=== PATIENT | male | born 1965 | race Caucasian/White ===

== ENCOUNTER 2023-07-17 14:21 | Inpatient (IN) | payer OTHER, SELFPAY ==
--- NOTE | ~2023-07-17 | CT_ITS ---
EXAMINATION: CT CHEST WITH CONTRAST CLINICAL INFORMATION: Pneumonia history of epidural abscess. COMPARISON: Previous chest x-ray from earlier the same day and chest CT April 2022 TECHNIQUE: Multidetector volumetric CT imaging of the chest was obtained after the administration of 85 mL of Omnipaque 350 intravenous contrast without immediate adverse reactions. Axial MIP volume rendering provided. Sagittal and coronal reformatted images were obtained. This CT examination was performed using dose optimization techniques as appropriate, variously including the following: *Automated exposure control *Adjustment of mA and/or kV according to patient size (this includes techniques or standardized protocols for targeted exams where dose is matched to indication/reason for exam; i.e. extremities or head) *Use of iterative reconstruction technique DLP: 241 mGy-cm FINDINGS: LUNGS: 6 mm lingular nodule unchanged axial image 304 series 5. New 1.5 cm cavitary right lower lobe nodule axial image 312 series 5. Mild scarring or subsegmental atelectasis right upper lobe lingula and left lower lobe. MEDIASTINUM: Small mediastinal and bilateral hilar nodes. Upper normal heart size. No pericardial effusion. Ossific aorta. No coronary artery calcification. PLEURA: There is no pleural effusion. No pleural mass or thickening. AXILLA: No lymphadenopathy. UPPER ABDOMEN: Unremarkable OSSEOUS STRUCTURES: Ankylosis of the T9 T10 disc space and ankylosis of the C7-T1 disc space. Degenerative changes of the spine. CT/CT chest w IV con IMPRESSION: New 1.5 cm cavitary right lower lobe nodule. Infectious, inflammatory and neoplastic processes should considered. Stable 6 mm lingular pulmonary nodule chest CT April 2022. Continued follow-up as per lung cancer screening . Fleischner guidelines were followed.
--- NOTE | ~2023-07-17 | CT_ITS ---
EXAMINATION: CT ABDOMEN AND PELVIS WITH CONTRAST CLINICAL INFORMATION: Intravenous drug use; abdominal pain; question intra-abdominal abscess. COMPARISON: None available. TECHNIQUE: Multidetector volumetric images were obtained from the superior aspect of the liver through the pubic symphysis following administration 85 mL of Omnipaque 350 intravenous contrast. Sagittal and coronal reformatted images were obtained on the technologist's workstation. Oral contrast: No This CT examination was performed using dose optimization techniques as appropriate, variously including the following: *Automated exposure control *Adjustment of mA and/or kV according to patient size (this includes techniques or standardized protocols for targeted exams where dose is matched to indication/reason for exam; i.e. extremities or head) *Use of iterative reconstruction technique DLP: 596 mGy-cm FINDINGS: LUNG BASES: Please see accompanying CT chest report. LIVER, GALLBLADDER, AND BILIARY TREE: The liver is normal in size, shape, and attenuation. No focal hepatic lesion or biliary ductal dilatation is present. The gallbladder is unremarkable with no evidence of radiopaque gallstones, gallbladder wall thickening, or obvious pericholecystic inflammatory changes. PANCREAS: Unremarkable. SPLEEN: Unremarkable. ADRENAL GLANDS: Unremarkable. KIDNEYS AND URETERS: The kidneys are normal in size, shape, and attenuation. No hydronephrosis, hydroureter, or calculi seen. No perinephric stranding. Within the mid right kidney (4:317), an 8 mm mildly complex (Bosniak 2) cyst is seen, with fine septation. At the lower pole of the left kidney (4: 411), a 9 mm mildly complex (Bosniak 2) cyst is seen, with fine septation. These are likely benign and require no imaging follow-up. These are too small for full characterization with CT. BLADDER: Unremarkable. GASTROINTESTINAL TRACT: There is a moderate stool burden, suggesting possible constipation. No obstruction, free intraperitoneal air or abscess is seen. There is no focal bowel wall thickening. There is no significant diverticulosis or diverticulitis. The vermiform appendix is unremarkable. ABDOMINAL WALL: There is a diastases rectus. There is a small fat-containing umbilical hernia. A small fat-containing left inguinal hernia is seen. LYMPH NODES: Normal. VASCULAR: Unremarkable. PELVIC VISCERA: Unremarkable. OSSEOUS STRUCTURES: There is multi-level marked thoracolumbar degenerative disc disease and spondylosis. No acute or aggressive osseous abnormality is seen. CT/CT abdomen pelvis w IV con IMPRESSION: 1. Findings suggest possible constipation. No bowel obstruction, free intraperitoneal air or abscess is seen. There is no appendicitis or diverticulitis. 2. No intra-abdominal mass, abscess, free fluid or lymphadenopathy is seen. 3. No urinary calculus or obstruction is seen. 4. There are small fat-containing umbilical and left inguinal hernia defects. 5. There are multi-level degenerative changes of the spine. Fleischner guidelines were followed.
--- NOTE | ~2023-07-17 | XR_ITS ---
EXAMINATION: XR CHEST CLINICAL INFORMATION: Right posterior pain COMPARISON: None available. TECHNIQUE: Frontal portable view of the chest was obtained. 2040 hours FINDINGS: Lung volume low. This causes prominence of bronchovascular markings. There is no overt pulmonary edema. No focal consolidation. Cardiac mediastinal contours are normal. Heart size is normal XR/XR chest 1V IMPRESSION: Low lung volume. No acute abnormality of chest.
--- NOTE | 2023-07-17 14:28 | ED_ITS ---
HPI - General Adult General Chief complaint: Back Pain/Injury Stated complaint: Osteomyelitis Time Seen by Provider: 07/17/23 20:02 Source: patient Mode of arrival: ambulatory Limitations: no limitations History of Present Illness HPI narrative: Patient IVDA user with history of epidural abscess few hours ago still using IVDA last use was 5 days ago complaining of pain in the right lower chest posteriorly which increased on palpation and deep breath does have chronic cough with COPD, smoker denies any midline back pain. Labs done in the ER showed WBC count of 10.3 hemoglobin 13.4 patient does have chronic cough with mucopurulent phlegm denies any fever or chills Related Data Allergies Allergy/AdvReac Type Severity Reaction Status Date / Time amoxicillin Allergy Diarrhea Verified 07/17/23 14:28 Review of Systems 2 Review of Systems: Yes all other systems are reviewed and are negative [facility] Past Medical History Medical History (Updated 07/18/23 @ 02:15 by Martha Boyd) Tobacco abuse Epidural abscess IV drug user Essential hypertension Social History Social History Unable to assess alcohol history related to: Unknown Patient Tobacco Use Status: Current everyday Tobacco user Smoked in Last 30 Days: Yes Use of substances other than those prescribed or required for medical reasons: Yes Advance Directives: No Advance Directives Information Provided: No Nutrition Risks: No Nutritional Risk Physical Exam ED Vital Signs: Vital Signs - 24 hr 07/17/23 14:29 07/17/23 20:35 07/17/23 22:49 Temperature 98 F 97.9 F 98.1 F Pulse Rate 67 68 81 Respiratory Rate 18 20 18 Blood Pressure 113/70 118/75 101/58 L Pulse Oximetry 98 97 93 Oxygen Delivery Method Room Air Room Air Room Air BMI result Body Mass Index 30.8 Appearance: Alert. Oriented X3. No acute distress. Eyes: No pallor or icterus ENT: Pharynx normal. Oral Mucosa moist Neck: Normal inspection. Neck supple. CVS: Normal heart rate and rhythm. Pulses normal. Respiratory: No respiratory distress. Equal air entry bilateral, bilateral wheezing, tender to touch right posterior lower ribs Abdomen: Soft and nontender. Bowel sounds are present, no mass palpable, no CVA tenderness Skin: Skin warm and dry. Normal skin color. Normal skin turgor. Extremities: No lower extremity edema. No calf tenderness back: No midline tenderness no percussion tenderness Neuro: Oriented X 3. No motor deficit. No sensory deficit.No cerebellar signs , cranial nerves II-XII intact Course Course Course Narrative: RME:?57 yo male, hx of IVDU, osteo, and epidural abscess here for eval of I think I have osteomyelitis . endorses right lower/mid back pain which feels like his previous osteo. denies fever/chilld. [facility]. States that he was outside smoking a cigarette when security asked him to leave. Full HPI, ROS and PE to be performed by the primary ED provider. Medications Administered Generic Name Dose Route Start Last Admin Trade Name Freq PRN Reason Stop Dose Admin Hydromorphone HCl 1 mg 07/17/23 23:30 07/18/23 02:19 Hydromorphone Hcl 1 Mg/Ml Syringe IVPUSH 1 mg Q4H PRN Administration Pain, Severe (Pain Scale 7-10) Protocol Sodium Chloride 1,000 mls @ 100 mls/hr 07/17/23 23:30 07/18/23 01:22 Ns IVCONT 100 mls/hr .Q10H SOCO Administration Sodium Chloride 3 ml 07/18/23 00:00 07/18/23 01:22 0.9 % Sodium Chloride Flush 3 Ml Syringe IVFLUSH 3 ml QSHIFT SOCO Administration Discontinued Medications Generic Name Dose Route Start Last Admin Trade Name Freq PRN Reason Stop Dose Admin Albuterol Sulfate 2.5 mg/ 0 mg 07/17/23 21:12 07/17/23 21:33 Albuterol/Ipratropium 3 ml INHALE 07/17/23 21:13 2.5 dose ONCE ONE Administration Ceftriaxone Sodium 1 gm/ 50 mls @ 100 mls/hr 07/17/23 21:11 07/17/23 22:07 Sodium Chloride IV 07/17/23 21:40 Infused ONCE ONE Infusion Vancomycin HCl 2,000 mg in 500 mls @ 250 mls/hr 07/17/23 22:24 07/18/23 02:32 Vancomycin/Ns IV 07/18/23 00:23 Infused ONCE ONE Infusion Piperacillin Sod/Tazobactam 50 mls @ 100 mls/hr 07/17/23 22:24 07/17/23 23:17 Sod 3.375 gm/ Sodium Chloride IV 07/17/23 22:53 Infused ONCE ONE Infusion Iohexol 100 ml 07/17/23 21:29 07/17/23 21:29 Iohexol 350 Mg/Ml 100 Ml Infus..Btl IV 07/17/23 21:30 65 ml ONCE ONE Administration Ketorolac Tromethamine 30 mg 07/17/23 21:11 07/17/23 21:37 Ketorolac Tromethamine 30 Mg/Ml Vial IVPUSH 07/17/23 21:12 30 mg ONCE ONE Administration Morphine Sulfate 4 mg 07/17/23 23:11 07/17/23 23:19 Morphine Sulfate 4 Mg/Ml Cartridge IVPUSH 07/17/23 23:12 4 mg ONCE ONE Administration Protocol Ondansetron HCl 4 mg 07/17/23 23:11 07/17/23 23:19 Ondansetron Hcl 4 Mg/2 Ml Vial IVPUSH 07/17/23 23:12 4 mg ONCE ONE Administration Medical Decision Making Medical Decision Making [facility] Narrative: Patient with right lower lung pain clinically pleuritic pain CT chest showed cavitary lesion normal WBC count with lung nodules possible pneumonia/lung mass/neoplasm. Patient does not have any midline spinal tenderness will admit patient for IV antibiotics Differential Diagnosis Differential Diagnoses: The differential diagnosis associated with the presentation includes Lung neoplasm/pneumonia/pleurisy/rib fracture Admission/Observation Consideration of admission/observation: Escalation of care including admission/observation considered Consult Healthcare Provider Management of the patient was discussed with: Hospitalist Lab Data [facility] Lab Attestation statement: I reviewed the patient's lab results. 07/17/23 15:23 07/17/23 15:23 Labs: Lab Results 07/17/23 07/17/23 Range/Units 15:23 20:31 WBC 10.3 (4.8-10.8) X10*3/uL RBC 4.91 (4.60-5.80) X10*6/uL Hgb 13.4 L (14.0-18.0) g/dl Hct 39.7 L (42.0-52.0) % MCV 80.9 (80.0-98.0) fL MCH 27.3 (27.0-33.0) pg MCHC 33.8 (31.0-36.0) g/dl RDW 13.2 (11.0-16.0) % Plt Count 152 L (160-400) X10*3/uL MPV 10.0 (9.4-12.4) fL Immature Gran % (Auto) 0.4 (0.0-0.4) % Neut % (Auto) 74.6 H (45-73) % Lymph % (Auto) 11.6 L (20-40) % [place] % (Auto) 12.2 H (2-11) % Eos % (Auto) 0.9 (0-4) % Baso % (Auto) 0.3 (0-2) % Lymph # (Auto) 1.2 (1.2-4.9) X10*3/uL [place] # (Auto) 1.3 H (0.1-1.2) X10*3/uL Eos # (Auto) 0.1 (0.0-0.4) X10*3/uL Baso # (Auto) 0.0 (0.0-0.2) X10*3/uL Abs Immat Gran (auto) 0.04 H (0.00-0.03) X10*3/uL Absolute Neuts (auto) 7.7 (2.0-8.3) x10*3/uL Absolute Nucleated RBC 0.000 (0.0-0.012) X10*3/uL Nucleated RBC % (auto) 0.0 (0.0-0.2) /100WBC ESR 40 H (0-15) MM/HR Sodium 139 (135-145) mmol/L Potassium 4.0 (3.3-5.1) mmol/L Chloride 104 (96-108) mmol/L Carbon Dioxide 28 (22-29) mmol/L Anion Gap 11 L (12-20) BUN 24 H (9-16) mg/dL Creatinine 1.17 (0.5-1.4) mg/dL Estim Creat Clear Calc 68.5 Estimated GFR > 60 Random Glucose 109 (60-115) mg/dL Lactic Acid 1.5 (0.5-2.0) mmol/L Calcium 9.5 (8.4-10.2) mg/dL Magnesium 2.0 (1.6-2.6) mg/dL Total Bilirubin 0.3 (0.0-1.0) mg/dL AST 15 (5-37) U/L ALT 10 (0-40) U/L Alkaline Phosphatase 81 (39-117) U/L Total Creatine Kinase 15 L (38-174) U/L C-Reactive Protein 17.46 H (< or = 0.50) mg/dL Total Protein 7.0 (6.5-8.0) g/dL Albumin 3.4 L (3.5-5.0) g/dL Independent Interpretation I performed an independent interpretation of an: Plain X-Ray and CT Scan Radiology Impression Discussion of test interpretation with radiology: I have reviewed the radiologist's reading. Radiologist Impression: [address] [address] [address] Scan Report Signed Patient: Tayo Fisher MR#: [id number] : 1965 Acct:[id number] Age/Sex: 57 / M ADM Date: 07/17/23 Loc: .ED Attending Dr: Ordering Physician: Albaro Collins MD Date of Service: 07/17/23 Procedure(s): CT chest w IV con Accession Number(s): [id number] cc: EMMANUEL LYMAN DO; Albaro Collins MD~ EXAMINATION: CT CHEST WITH CONTRAST CLINICAL INFORMATION: Pneumonia history of epidural abscess. COMPARISON: Previous chest x-ray from earlier the same day and chest CT April 2022 TECHNIQUE: Multidetector volumetric CT imaging of the chest was obtained after the administration of 85 mL of Omnipaque 350 intravenous contrast without immediate adverse reactions. Axial MIP volume rendering provided. Sagittal and coronal reformatted images were obtained. This CT examination was performed using dose optimization techniques as appropriate, variously including the following: *Automated exposure control *Adjustment of mA and/or kV according to patient size (this includes techniques or standardized protocols for targeted exams where dose is matched to indication/reason for exam; i.e. extremities or head) *Use of iterative reconstruction technique DLP: 241 mGy-cm FINDINGS: LUNGS: 6 mm lingular nodule unchanged axial image 304 series 5. New 1.5 cm cavitary right lower lobe nodule axial image 312 series 5. Mild scarring or subsegmental atelectasis right upper lobe lingula and left lower lobe. MEDIASTINUM: Small mediastinal and bilateral hilar nodes. Upper normal heart size. No pericardial effusion. Ossific aorta. No coronary artery calcification. PLEURA: There is no pleural effusion. No pleural mass or thickening. AXILLA: No lymphadenopathy. UPPER ABDOMEN: Unremarkable OSSEOUS STRUCTURES: Ankylosis of the T9 T10 disc space and ankylosis of the C7-T1 disc space. Degenerative changes of the spine. CT/CT chest w IV con IMPRESSION: New 1.5 cm cavitary right lower lobe nodule. Infectious, inflammatory and neoplastic processes should considered. Stable 6 mm lingular pulmonary nodule chest CT April 2022. Continued follow-up as per lung cancer screening . Fleischner guidelines were followed. Discharge Plan Discharge Clinical Impression: Cavitary lesion of lung Patient Disposition: Admitted As Inpatient Interventions: Admission Worksheet (ED) Last Done: 07/18/23 01:10 Discharge Date/Time: 07/18/23 02:15
[2023-07-17 14:29] VITALS: BP 113/70; PULSE 67; RESP 18; TEMP 36.6; O2SAT 98; BMI 30.8
[2023-07-17 15:30] LABS: MANUAL DIFF FLAG NO
[2023-07-17 15:34] LABS: Basophils Percent Auto 0.3 % (0-2); Eosinophils Absolute Auto 0.1 X10*3/uL (0.0-0.4); Eosinophils Percent Auto 0.9 % (0-4); Hematocrit 39.7 % (42.0-52.0); Hemoglobin 13.4 g/dl (14.0-18.0); Imm Gran Abs Auto 0.04 X10*3/uL (0.00-0.03); Imm Gran Pct Auto 0.4 % (0.0-0.4); Lymphocytes Absolute Auto 1.2 X10*3/uL (1.2-4.9); Lymphocytes Percent Auto 11.6 % (20-40); Mean Corpuscular HGB Conc 33.8 g/dl (31.0-36.0); Mean Corpuscular Hemoglobin 27.3 pg (27.0-33.0); Mean Corpuscular Volume 80.9 fL (80.0-98.0); Monocytes Absolute Auto 1.3 X10*3/uL (0.1-1.2); Monocytes Percent Auto 12.2 % (2-11); Neutrophils Absolute Auto 7.7 x10*3/uL (2.0-8.3); Neutrophils Percent Auto 74.6 % (45-73); Platelet Count 152 X10*3/uL (160-400); Red Blood Count 4.91 X10*6/uL (4.60-5.80); Red Cell Distribution Width 13.2 % (11.0-16.0); White Blood Count 10.3 X10*3/uL (4.8-10.8)
[2023-07-17 15:46] LABS: Alanine Aminotransferase 10 U/L (0-40); Albumin Level 3.4 g/dL (3.5-5.0); Alkaline Phosphatase 81 U/L (39-117); Anion Gap 11 (12-20); Aspartate Amino Transferase 15 U/L (5-37); Bilirubin Total 0.3 mg/dL (0.0-1.0); Blood Urea Nitrogen 24 mg/dL (9-16); C Reactive Protein 17.46 mg/dL (< or = 0.50); Calcium 9.5 mg/dL (8.4-10.2); Carbon Dioxide 28 mmol/L (22-29); Chloride 104 mmol/L (96-108); Creatinine Clr Calc Pharmacy 68.5; Estimated Glomerular Filt Rate > 60; Glucose Random 109 mg/dL (60-115); Sodium 139 mmol/L (135-145)
[2023-07-17 16:10] LABS: Erythrocyte Sedimentation Rate 40 MM/HR (0-15)
[2023-07-17 20:35] VITALS: BP 118/75; PULSE 68; RESP 20; TEMP 36.6; O2SAT 97
[2023-07-17 20:53] LABS: Lactic Acid 1.5 mmol/L (0.5-2.0)
[2023-07-17] MEDS: iohexoL 350 MG/ML 100 ML INFUS..BTL IV (21:29)
[2023-07-17] MEDS: Albuterol Sulfate 2.5 MG, Albuterol/Iprat 2.5/0.5MG 3 ML 3 ML INHALE (21:33)
[2023-07-17] MEDS: Ketorolac Tromethamine 30 MG/ML VIAL IVPUSH (21:37)
[2023-07-17] MEDS: cefTRIAXone sodium 1 GM in 0.9 % Sodium Chloride 50 ML IV (21:37)
[2023-07-17] MEDS: Piperacillin Sodium/Tazobactam 3.375 GM in 0.9 % Sodium Chloride 50 ML IV (22:47)
[2023-07-17 22:49] VITALS: BP 101/58; PULSE 81; RESP 18; TEMP 36.7; O2SAT 93
[2023-07-17] MEDS: Morphine Sulfate 4 MG/ML CARTRIDGE IVPUSH (23:19)
[2023-07-17] MEDS: ondansetron HCL 4 MG/2 ML VIAL IVPUSH (23:19)
[2023-07-17] MEDS: vancomycin/NS 2,000 MG/500 ML PLAST..BAG 250 MG IV (23:28)
--- NOTE | 2023-07-18 01:09 | PM.IMHP ---
History of Present Illness Date of Service: 07/17/23 Attending physician on admission: Uriel Moore Chief Complaint: Left flank pain Tayo Fisher is a very pleasant 57 years old man with past medical history significant for hypertension, epidural abscess and IV drug use presents to the emergency department complaining of severe right flank pain over the last few days that increases with movement and deep inspiration. He also reported some occasional cough. He did not report any fever or chills. He denies headache, sore throat, chest pain, nausea, vomiting, abdominal pain or diarrhea. He did not report any acute urinary symptoms. He is a tobacco smoker -1 pack per day. Last use of heroin 5 days ago. He denies alcohol abuse. In the ED, he was found to have stable vital signs. There is no leukocytosis. CRP is significantly elevated 17.46. LFTs are normal. Renal function is normal and there are no significant electrolyte imbalances. He underwent chest CT scan with IV contrast that show a new 1.5 cm cavity RLL nodule (infectious vs inflammatory versus neoplastic process should be considered). It also showed a stable 6 mm lingular pulmonary nodule. ED tx: Zosyn 3.375 mg IV, morphine 4 mg IV, vancomycin 2 g IV and Zofran 4 mg IV. Review of Systems Review of Systems: All 12 systems were reviewed and normal except as noted in HPI. [facility] Medical History (Updated 07/18/23 @ 02:15 by Martha Boyd) Tobacco abuse Epidural abscess IV drug user Essential hypertension Social History Household Members: None Housing: Other Unable to assess alcohol history related to: Unknown Patient Tobacco Use Status: Never used Tobacco Smoked in Last 30 Days: No e-Cigarette/Vaping Use: Never Used Patient Interested in Nicotine Replacement: No Patient Given Instructions on How to Stop Smoking: No Use of substances other than those prescribed or required for medical reasons: Yes Substance Use Type: Heroin Substance Use Frequency: Occasionally Last Used Substance: Days (ago) Last Used Substance Other:: three days prior to admission Currently Displaying Signs/Symptoms of Drug Intoxication Withdrawal: No Any prior treatment program specific to substance use: No Advance Directives: No Advance Directives Information Provided: No Do you have thoughts of harming others: None Do you have a plan to hurt others: No Plan Recently lost weight without trying: No Eating poorly because of decreased appetite: No Nutrition Risks: No Nutritional Risk Poor oral hygiene: No Meds Allergies Allergy/AdvReac Type Severity Reaction Status Date / Time amoxicillin Allergy Diarrhea Verified 07/17/23 14:28 Active Medications: Current Medications Acetaminophen (Acetaminophen 325 Mg Tablet) 975 mg PO Q8H SOCO Aspirin (Aspirin 81 Mg Tab.Chew) 81 mg PO DAILY [facility] Heparin Sodium (Porcine) (Heparin Sodium,Porcine 5,000 Unit/Ml Vial) 5,000 unit SUBCUT Q8H SOCO Hydromorphone HCl (Hydromorphone Hcl 1 Mg/Ml Syringe) 1 mg IVPUSH Q4H PRN; Protocol PRN Reason: Pain, Severe (Pain Scale 7-10) Sodium Chloride (Ns) 1,000 mls @ 100 mls/hr IVCONT .Q10H SOCO Piperacillin Sod/Tazobactam (Sod 3.375 gm/ Sodium Chloride) 50 mls @ 100 mls/hr IV Q6H SOCO Lisinopril (Lisinopril 20 Mg Tablet) 20 mg PO DAILY SOCO; Protocol Methadone HCl (Methadone Hcl 20 Mg/2 Ml Oral.Conc) 45 mg PO DAILY [facility] Multivitamins/Vitamin C (Multivitamin Tablet) 1 tab PO DAILY [facility] Sodium Chloride (0.9 % Sodium Chloride Flush 3 Ml Syringe) 3 ml IVFLUSH QSHIFT [facility] Trazodone HCl (Trazodone Hcl 100 Mg Tablet) 100 mg PO BEDTIME [facility] Physical Exam Vital Signs and Narrative: Vital Signs: Last Vital Signs Temp 98.1 F 07/17/23 22:49 Pulse 81 07/17/23 22:49 Resp 18 07/17/23 22:49 BP 101/58 L 07/17/23 22:49 Pulse Ox 93 07/17/23 22:49 O2 Del Method Room Air 07/17/23 22:49 BMI result Body Mass Index 30.8 Constitutional - Awake and Alert. Looks very uncomfortable due to pain. Afebrile. Cooperative. Pleasant. HEENT - Pupils equally round. No scleral icterus. Heart - S1S2, RRR, No edema Lungs - Normal lung expansion, Normal respiratory effort, No respiratory distress. No tachypnea. Right lower base: Crackles. Left lung clear. Gastrointestinal - NT / ND; +BS; No rebound or guarding Extremities - no calf tenderness bilaterally, no swelling Musculoskeletal - Normal inspection, normal ROM Skin - Warm/Dry Neurological - Alert & oriented x3. No focal weakness. Normal speech. Normal behavior. Psychological - Appropriate affect Results Labs 07/18/23 06:03 07/18/23 06:03 Labs: Laboratory Results - last 24 hr 07/17/23 07/17/23 15:23 20:31 MCV 80.9 MCH 27.3 MCHC 33.8 RDW 13.2 Plt Count 152 L MPV 10.0 Immature Gran % (Auto) 0.4 Neut % (Auto) 74.6 H Lymph % (Auto) 11.6 L [place] % (Auto) 12.2 H Eos % (Auto) 0.9 Baso % (Auto) 0.3 Lymph # (Auto) 1.2 [place] # (Auto) 1.3 H Eos # (Auto) 0.1 Baso # (Auto) 0.0 Abs Immat Gran (auto) 0.04 H Absolute Neuts (auto) 7.7 Absolute Nucleated RBC 0.000 Nucleated RBC % (auto) 0.0 ESR 40 H Anion Gap 11 L Estim Creat Clear Calc 68.5 Estimated GFR > 60 Random Glucose 109 Lactic Acid 1.5 Calcium 9.5 Magnesium 2.0 Total Bilirubin 0.3 AST 15 ALT 10 Alkaline Phosphatase 81 Total Creatine Kinase 15 L C-Reactive Protein 17.46 H Total Protein 7.0 Albumin 3.4 L Imaging Radiologist's Impressions: Impressions Chest X-Ray 07/17/23 20:44 IMPRESSION: Low lung volume. No acute abnormality of chest. Chest CT 07/17/23 21:32 IMPRESSION: New 1.5 cm cavitary right lower lobe nodule. Infectious, inflammatory and neoplastic processes should considered. Stable 6 mm lingular pulmonary nodule chest CT April 2022. Continued follow-up as per lung cancer screening . Fleischner guidelines were followed. Assessment and Plan (1) Essential hypertension: Status: Acute (2) IV drug user: Status: Acute (3) Cavitary lesion of lung: Status: Acute Plan Tayo Fisher is a 57 years old man with history of epidural abscess admitted with: Cavitary right lower lobe nodule (1.5 cm). Admit to hospitalist service. Continue empiric IV antibiotic therapy with vancomycin and Zosyn. Sputum culture. Pulmonology consult for further recommendations. Essential hypertension. Continue lisinopril. IV drug use. Continue methadone 45 mg p.o. daily (not confirmed yet). Tobacco smoking. Tobacco cessation education. Nicotine gums as needed. DVT prophylaxis: Heparin subcut Code status: Full Patient will need hospitalization for at least 2 midnights for cavitary lung nodule treatment with IV antibiotics. Patient will need evaluation by subspecialty for further recommendation and/or interventions. Quality Stroke Does the patient have a stroke diagnosis?: No VTE Prior VTE?: No VTE Risk Level:: Medical - moderate - high VTE Device Contraindication: Treatment Not Indicated VTE Drug Contraindication: N/A - Med Ordered
[2023-07-18] MEDS: 0.9 % Sodium Chloride Flush 3 ML SYRINGE IVFLUSH (01:22)
[2023-07-18] MEDS: 0.9 % Sodium Chloride 1,000 ML 100 ML IVCONT ×2 (01:22→11:07)
[2023-07-18 01:49] VITALS: BP 115/74; PULSE 76; RESP 17; TEMP 36.6; O2SAT 95
[2023-07-18 02:06] VITALS: BP 143/78; PULSE 68; RESP 16; TEMP 36.6; O2SAT 98
[2023-07-18] MEDS: HYDROmorphone HCl 1 MG/ML SYRINGE IVPUSH ×4 (02:19→21:29)
[2023-07-18] MEDS: Acetaminophen 325 MG TABLET 975 MG PO ×2 (03:00→12:09)
[2023-07-18] MEDS: traZODone HCL 100 MG TABLET PO ×2 (03:01→21:29)
[2023-07-18 06:24] LABS: MANUAL DIFF FLAG NO
[2023-07-18 06:28] LABS: Basophils Percent Auto 0.3 % (0-2); Eosinophils Absolute Auto 0.1 X10*3/uL (0.0-0.4); Hematocrit 38.6 % (42.0-52.0); Hemoglobin 12.8 g/dl (14.0-18.0); Imm Gran Abs Auto 0.05 X10*3/uL (0.00-0.03); Imm Gran Pct Auto 0.6 % (0.0-0.4); Lymphocytes Absolute Auto 1.2 X10*3/uL (1.2-4.9); Lymphocytes Percent Auto 13.6 % (20-40); Mean Corpuscular HGB Conc 33.2 g/dl (31.0-36.0); Mean Corpuscular Hemoglobin 26.8 pg (27.0-33.0); Mean Corpuscular Volume 80.8 fL (80.0-98.0); Mean Platelet Volume 10.1 fL (9.4-12.4); Monocytes Absolute Auto 1.2 X10*3/uL (0.1-1.2); Monocytes Percent Auto 13.8 % (2-11); Neutrophils Absolute Auto 6.1 x10*3/uL (2.0-8.3); Neutrophils Percent Auto 70.7 % (45-73); Platelet Count 149 X10*3/uL (160-400); Red Blood Count 4.78 X10*6/uL (4.60-5.80); Red Cell Distribution Width 13.4 % (11.0-16.0); White Blood Count 8.7 X10*3/uL (4.8-10.8)
[2023-07-18 06:44] LABS: Anion Gap 14 (12-20); Blood Urea Nitrogen 22 mg/dL (9-16); Calcium 8.9 mg/dL (8.4-10.2); Carbon Dioxide 23 mmol/L (22-29); Chloride 108 mmol/L (96-108); Creatinine Clr Calc Pharmacy 79.4; Estimated Glomerular Filt Rate > 60; Glucose Random 135 mg/dL (60-115); Potassium 3.5 mmol/L (3.3-5.1); Sodium 141 mmol/L (135-145)
[2023-07-18] MEDS: Piperacillin Sodium/Tazobactam 3.375 GM in 0.9 % Sodium Chloride 50 ML IV ×2 (06:45→12:09)
[2023-07-18 07:12] VITALS: BP 102/59; PULSE 52; RESP 18; TEMP 36.5; O2SAT 93
[2023-07-18] MEDS: Multivitamin TABLET 1 TAB PO (08:37)
[2023-07-18] MEDS: lisinopriL 20 MG TABLET PO (08:37)
[2023-07-18] MEDS: methADONE HCl 20 MG/2 ML ORAL.CONC 45 MG PO (08:38)
[2023-07-18] MEDS: Aspirin 81 MG TAB.CHEW PO (08:38)
--- NOTE | 2023-07-18 08:42 | PHA.MEDREC ---
Pharmacy Consult ? Medication Reconciliation Pharmacy has completed the medication reconciliation. Pt reports not taking the atorvastatin or bupropion anymore because it's too many pills . Left off med rec.
--- NOTE | 2023-07-18 09:28 | HE.PHANOTE ---
re methadone verification last dose 45 mg given 07/17/23 @[facility]
--- NOTE | 2023-07-18 10:14 | PHA.PROG ---
Admission Date/Time: July 17, 2023 23:30 Indication: respiratory infection Weight in k.915 kg Adjusted body weight in K.466 [place] body weight in Kg: Obesity Dosing Indication % IBW: 30.8 Serum Creatinine - Last 168 Hours 07/17/23 07/18/23 15: 06:03 Creatinine 1.17 1.01 Estimated CrCl and GFR - Last 168 Hours 07/17/23 07/18/23 15: 06:03 Estim Creat Clear Calc 68.5 79.4 Estimated GFR > 60 > 60 Vancomycin Loading Dose: 2000 mg Current Vancomycin Dosing Regimen: 750 mg Q12H Vancomycin Monitoring using AUC goal of 400 - 600 range with trough as surrogate marker: 499 Date and Time for next Vancomycin Level to be drawn: 07/19 @0900 Pharmacist Comments on Vancomycin Plan: Predicted trough 15.8 mg/L - daily creatinines ordered, adjust dose based on renal function and troughs. Vancomycin dosing will take advantage of [employer] as a clinical decision support tool that uses Bayesian modeling to calculate individual patient's pharmacokinetic parameters and forecast the patient's drug concentration time course with the target goal AUC 24 range of 400 - 600 mg/L/hr.
[2023-07-18] MEDS: vancomycin HCL 750 MG in 0.9 % Sodium Chloride 250 ML 265 MG IV ×2 (11:05→22:50)
--- NOTE | 2023-07-18 13:41 | MHC.CM.PN ---
Addendum entered by Renata Duong RN 07/18/23 13:52: PER REVIEW OF PULMONARY NOTE, PATIENT WILL REQUIRE 28 DAYS OF THERAPY WITH PULMONARY FOLLOW UP. PATIENT IS HOPING TO DO DAILY VISITS FOR INFUSION IF THIS IS ONLY CHOICE. CM TO FOLLOW UP DURING WEEK Original Note: PATIENT LIVES ALONE HIS [place] [facility] [place] HE OCCASIONALLY USES A [facility] FOR AMBULATION ASSIST NO HCP ON FILE BUT HE WILL CONSIDER THIS. ADDRESS LISTED IS INCORRECT. REGISTRATION IS CLOSED FOR THE DAY PATIENT'S ADDRESS IS [address] [place] [address]. PATIENT DOES NOT WANT TO GO TO REHAB IF HE NEEDS LT IV ABX. HE IS HOPING TO GO HOME AND HE IS AWARE OF IVDA HX POSING POSSIBLE BARRIER. OF THIS NOTE, IT IS UNCLEAR WHAT DC NEEDS WILL BE HE IS HOPING TO GO HOME ON PO ABX (IF ANY). IMM 07/18 SIGNED AND COPY IN CHART
--- NOTE | 2023-07-18 13:42 | P.CONPL_ITS ---
History of Present Illness History of Present Illness Consult date: 07/18/23 Chief complaint: Right lower lobe lesion Narrative: 57-year-old gentleman, active 30+ pack-year smoker, with underlying history of polysubstance abuse including IV, endocarditis, and epidural abscess excision admitted on 07/18/2023 with right upper quadrant/right lower lobe pain. CT chest demonstrated a right lower lobe 1.5 cm cavitary lesion. Patient was started on empiric antibiotics. His blood cultures are growing Staphylococcus. He denies prior personal or family history of lung disease. Review of Systems 2 Constitutional: Constitutional: Denies daytime sleepiness, Denies excessive sweating, Denies fatigue, Denies fever(s), Denies lethargy, Denies malaise, Denies night sweats, Denies snoring and Denies weight loss Eyes: Eyes: Denies blurry vision and Denies itchy eyes ENT: Denies nasal congestion, Denies post nasal drip, Denies sinus pain, Denies sinus pressure and Denies other ( Thrush) Cardiovascular: Cardiovascular: Denies chest pain, Denies pedal edema, Denies dyspnea, Denies orthopnea and Denies paroxysmal nocturnal dyspnea Respiratory: Respiratory: Denies cough, Denies hemoptysis, Denies excessive phlegm production, Denies dyspnea, Denies snoring and Denies wheezing Gastrointestinal: Gastrointestinal: Denies abdominal pain and Denies heartburn Musculoskeletal: Musculoskeletal: Denies myalgias, Denies arthralgias and Denies joint swelling Integumentary/Breasts: Skin/Breast: Denies rash Neurologic: Denies memory loss and Denies seizure-like activity Psychiatric: Psychiatric: Denies abnormal sleep pattern, Denies anxiety and Denies memory loss Endocrine: Endocrine: Denies excessive sweating, Denies fatigue and Denies heat intolerance Hematologic/Lymphatic: Hematologic/Lymphatic: Denies easy bruising Allergic/Immunologic: Allergic/Immunologic: Denies itchy eyes, Denies seasonal rhinorrhea and Denies wheezing PMFSH Past Medical History Medical History (Updated 07/18/23 @ 13:45 by Wan Cortez MD) Tobacco abuse Epidural abscess IV drug user Essential hypertension Social History Social History Household Members: None Housing: Other Unable to assess alcohol history related to: Unknown Patient Tobacco Use Status: Never used Tobacco e-Cigarette/Vaping Use: Never Used Substance Use Type: Heroin service: No Meds Allergies Allergy/AdvReac Type Severity Reaction Status Date / Time amoxicillin Allergy Diarrhea Verified 07/17/23 14:28 Active Medications: Current Medications Acetaminophen (Acetaminophen 325 Mg Tablet) 975 mg PO Q8H [facility] Last Admin: 07/18/23 12:09 Dose: 975 mg Aspirin (Aspirin 81 Mg Tab.Chew) 81 mg PO DAILY [facility] Last Admin: 07/18/23 08:38 Dose: 81 mg Heparin Sodium (Porcine) (Heparin Sodium,Porcine 5,000 Unit/Ml Vial) 5,000 unit SUBCUT Q8H [facility] Last Admin: 07/18/23 08:43 Dose: Not Given Hydromorphone HCl (Hydromorphone Hcl 1 Mg/Ml Syringe) 1 mg IVPUSH Q4H PRN; Protocol PRN Reason: Pain, Severe (Pain Scale 7-10) Last Admin: 07/18/23 08:52 Dose: 1 mg Sodium Chloride (Ns) 1,000 mls @ 100 mls/hr IVCONT .Q10H [facility] Last Infusion: 07/18/23 12:41 Dose: 100 mls/hr Piperacillin Sod/Tazobactam (Sod 3.375 gm/ Sodium Chloride) 50 mls @ 100 mls/hr IV Q6H [facility] Last Infusion: 07/18/23 12:41 Dose: Infused Vancomycin HCl 750 mg/ Sodium (Chloride) 265 mls @ 265 mls/hr IV Q12H [facility] Last Infusion: 07/18/23 12:08 Dose: Infused Lisinopril (Lisinopril 20 Mg Tablet) 20 mg PO DAILY [facility]; Protocol Last Admin: 07/18/23 08:37 Dose: 20 mg Methadone HCl (Methadone Hcl 20 Mg/2 Ml Oral.Conc) 45 mg PO DAILY [facility] Last Admin: 07/18/23 08:38 Dose: 45 mg Multivitamins/Vitamin C (Multivitamin Tablet) 1 tab PO DAILY [facility] Last Admin: 07/18/23 08:37 Dose: 1 tab Nicotine Polacrilex (Nicotine Polacrilex 2 Mg Gum) 2 mg BUCCAL Q2H PRN PRN Reason: Nicotine Cravings Pharmacy Consult (Consult Rx Vancomycin Dosing) 1 each MISCELLANE DAILY PRN PRN Reason: Consult order Sodium Chloride (0.9 % Sodium Chloride Flush 3 Ml Syringe) 3 ml IVFLUSH QSHIFT [facility] Last Admin: 07/18/23 08:43 Dose: Not Given Trazodone HCl (Trazodone Hcl 100 Mg Tablet) 100 mg PO BEDTIME [facility] Last Admin: 07/18/23 03:01 Dose: 100 mg Home Medications Medication Instructions Recorded Confirmed Last Taken Type cholecalciferol (vitamin D3) 25 25 mcg PO DAILY 07/18/23 07/18/23 07/16/23 History mcg (1,000 unit) capsule (Vitamin D3) latanoprost 0.005 % eye drops 1 drp ophthalmic (eye) BEDTIME 07/18/23 07/18/23 07/16/23 History lisinopril 40 mg tablet 40 mg PO DAILY 07/18/23 07/18/23 07/16/23 History methadone 10 mg/mL oral 45 mg PO DAILY 07/18/23 07/18/23 07/17/23 History concentrate (Methadone Intensol) multivitamin 1 tab PO DAILY 07/18/23 07/18/23 07/16/23 History tadalafil 10 mg tablet 10 mg PO DAILY PRN Erectile 07/18/23 07/18/23 07/16/23 History Dysfunction testosterone 50 mg/5 gram (1 %) 1 packet topical DAILY 07/18/23 07/18/23 07/16/23 History transdermal gel trazodone 50 mg tablet 100 mg PO BEDTIME 07/18/23 07/18/23 07/16/23 History Physical Exam 2 Vital Signs: Vital Signs: Last Vital Signs Temp 97.7 F 07/18/23 07:12 Pulse 52 07/18/23 07:12 Resp 18 07/18/23 07:12 BP 102/59 L 07/18/23 07:12 Pulse Ox 93 07/18/23 07:12 O2 Del Method Room Air 07/18/23 07:12 BMI result Body Mass Index 30.8 Const: General: no acute distress and alert Nutritional Appearance: not obese Orientation/consciousness: Other orientation findings ( oriented) HEENT: Head: Yes atraumatic Eyes: General: appearance normal, both eyes and all related structures S clerae: sclerae normal EOM: EOMs intact bilaterally Neck: Neck: Yes supple Lymphatic: no lymphadenopathy noted Resp: Effort & Inspection: normal respiratory effort and no use of accessory muscles Auscultation: clear to auscultation bilaterally Cardio: Rate: regular rate Rhythm: regular rhythm Heart sounds: no gallops, no murmurs and no rubs Skin: General skin exam: other ( warm) Extrem: General: No clubbing, No cyanosis and No edema Results Laboratory Findings 07/18/23 06:03 07/18/23 06:03 Abnormal lab findings: Abnormal Labs 07/17/23 07/18/23 15:23 06:03 Hgb 13.4 L 12.8 L Hct 39.7 L 38.6 L MCH 26.8 L Plt Count 152 L 149 L Immature Gran % (Auto) 0.6 H Neut % (Auto) 74.6 H Lymph % (Auto) 11.6 L 13.6 L [place] % (Auto) 12.2 H 13.8 H [place] # (Auto) 1.3 H Abs Immat Gran (auto) 0.04 H 0.05 H ESR 40 H Anion Gap 11 L BUN 24 H 22 H Random Glucose 135 H Total Creatine Kinase 15 L C-Reactive Protein 17.46 H Albumin 3.4 L Microbiology: Microbiology 07/17/23 20:31 Blood - Venous Blood Culture - Preliminary Prelim: GPC Gram Stain only 07/17/23 20:31 Blood - Venous Blood Culture - Preliminary Prelim: GPC Gram Stain only Assessment and Plan (1) Cavitary lesion of lung: Status: Acute (2) Pulmonary abscess: Status: Acute (3) Emphysema lung: Status: Acute Plan Impression: 57-year-old gentleman with prior history of polysubstance abuse including IV and prior abscess requiring excision now admitted with right upper quadrant/right lower lobe pain with CT chest showing right lower lobe cavitary lesion and with staphylococcal bacteremia. That lesion is likely a developing pulmonary abscess. Recommendations: Agree with IV antibiotics with staphylococcal coverage. Patient will require combined 28 days of therapy with follow-up CT chest thereafter and outpatient pulmonary follow-up. Procedures Date of Service Date of Service: 07/18/23
--- NOTE | 2023-07-18 14:00 | P.PNIM_ITS ---
Subjective Subjective Date of Service: 07/18/23 Interval History: seen and examined this morning follow up for cavitary lesion of lung denies fever, chills or sob right side pleuritic pain Review of Systems Review of Systems: Yes all other systems are reviewed and are negative Constitutional Constitutional: Denies chills and Denies fever(s) Cardiovascular Cardiovascular: Denies chest pain and Denies palpitations Endocrine Endocrine: Denies palpitations Physical Exam 2 Vital Signs: Vital Signs: Last Vital Signs Temp 97.7 F 07/18/23 07:12 Pulse 52 07/18/23 07:12 Resp 18 07/18/23 07:12 BP 102/59 L 07/18/23 07:12 Pulse Ox 93 07/18/23 07:12 O2 Del Method Room Air 07/18/23 07:12 BMI result Body Mass Index 30.8 Const: General: no acute distress and awake Nutritional Appearance: o verweight Orientation/consciousness: patient oriented x3 Resp: Effort & Inspection: normal respiratory effort, able to speak in complete sentences, no respiratory distress and no use of accessory muscles A uscultation: clear to auscultation bilaterally Cardio: Rate: regular rate GI: Inspection: No distended Palpation (GI): Soft to palpation and nontender Neuro: General: patient oriented x3, moves all extremities and CN's II-XI intact bilaterally Extrem: General: Yes no pedal edema Objective Data Active Medications Acetaminophen (Acetaminophen 325 Mg Tablet) 975 mg PO Q8H [facility] Last Admin: 07/18/23 12:09 Dose: 975 mg Documented By: ANIA Aspirin (Aspirin 81 Mg Tab.Chew) 81 mg PO DAILY [facility] Last Admin: 07/18/23 08:38 Dose: 81 mg Documented By: ANIA Heparin Sodium (Porcine) (Heparin Sodium,Porcine 5,000 Unit/Ml Vial) 5,000 unit SUBCUT Q8H [facility] Last Admin: 07/18/23 08:43 Dose: Not Given Documented By: ANIA Non-Admin Reason: Patient Refused Hydromorphone HCl (Hydromorphone Hcl 1 Mg/Ml Syringe) 1 mg IVPUSH Q4H PRN; Protocol PRN Reason: Pain, Severe (Pain Scale 7-10) Last Admin: 07/18/23 08:52 Dose: 1 mg Documented By: ANIA Sodium Chloride (Ns) 1,000 mls @ 100 mls/hr IVCONT .Q10H [facility] Last Infusion: 07/18/23 12:41 Dose: 100 mls/hr Documented By: ANIA Piperacillin Sod/Tazobactam (Sod 3.375 gm/ Sodium Chloride) 50 mls @ 100 mls/hr IV Q6H [facility] Last Infusion: 07/18/23 12:41 Dose: Infused Documented By: ANIA Vancomycin HCl 750 mg/ Sodium (Chloride) 265 mls @ 265 mls/hr IV Q12H [facility] Last Infusion: 07/18/23 12:08 Dose: Infused Documented By: ANIA Lisinopril (Lisinopril 20 Mg Tablet) 20 mg PO DAILY [facility]; Protocol Last Admin: 07/18/23 08:37 Dose: 20 mg Documented By: ANIA Methadone HCl (Methadone Hcl 20 Mg/2 Ml Oral.Conc) 45 mg PO DAILY [facility] Last Admin: 07/18/23 08:38 Dose: 45 mg Documented By: ANIA Multivitamins/Vitamin C (Multivitamin Tablet) 1 tab PO DAILY [facility] Last Admin: 07/18/23 08:37 Dose: 1 tab Documented By: ANIA Nicotine Polacrilex (Nicotine Polacrilex 2 Mg Gum) 2 mg BUCCAL Q2H PRN PRN Reason: Nicotine Cravings Pharmacy Consult (Consult Rx Vancomycin Dosing) 1 each MISCELLANE DAILY PRN PRN Reason: Consult order Sodium Chloride (0.9 % Sodium Chloride Flush 3 Ml Syringe) 3 ml IVFLUSH QSHIFT [facility] Last Admin: 07/18/23 08:43 Dose: Not Given Documented By: ANIA Non-Admin Reason: IV Running Trazodone HCl (Trazodone Hcl 100 Mg Tablet) 100 mg PO BEDTIME [facility] Last Admin: 07/18/23 03:01 Dose: 100 mg Documented By: SHARYN Comments: ok to give now per MD, start time changed by MD to reflect this dosage time Labs 07/18/23 06:03 07/18/23 06:03 Labs: Laboratory Results - last 24 hr 07/17/23 07/17/23 07/18/23 15:23 20:31 06:03 MCV 80.9 80.8 MCH 27.3 26.8 L MCHC 33.8 33.2 RDW 13.2 13.4 Plt Count 152 L 149 L MPV 10.0 10.1 Immature Gran % (Auto) 0.4 0.6 H Neut % (Auto) 74.6 H 70.7 Lymph % (Auto) 11.6 L 13.6 L [place] % (Auto) 12.2 H 13.8 H Eos % (Auto) 0.9 1.0 Baso % (Auto) 0.3 0.3 Lymph # (Auto) 1.2 1.2 [place] # (Auto) 1.3 H 1.2 Eos # (Auto) 0.1 0.1 Baso # (Auto) 0.0 0.0 Abs Immat Gran (auto) 0.04 H 0.05 H Absolute Neuts (auto) 7.7 6.1 Absolute Nucleated RBC 0.000 0.000 Nucleated RBC % (auto) 0.0 0.0 ESR 40 H Anion Gap 11 L 14 Estim Creat Clear Calc 68.5 79.4 Estimated GFR > 60 > 60 Random Glucose 109 135 H Lactic Acid 1.5 Calcium 9.5 8.9 D Magnesium 2.0 Total Bilirubin 0.3 AST 15 ALT 10 Alkaline Phosphatase 81 Total Creatine Kinase 15 L C-Reactive Protein 17.46 H Total Protein 7.0 Albumin 3.4 L Microbiology Microbiology Results: Microbiology 07/17/23 20:31 Blood Culture - Preliminary Blood - Venous Prelim: GPC Gram Stain only 07/17/23 20:31 Blood Culture - Preliminary Blood - Venous Prelim: GPC Gram Stain only Assessment and Plan (1) Pulmonary abscess: Status: Acute Plan This is a 57 year old male with history IVDU, HTN, h/o epidural abscess who presents with right side pain found to have cavitary lung lesion. Cavitary right lower lobe nodule (1.5 cm). probable lung abscess Continue IV vancomycin, zosyn stopped seen by pulmonary- will need 28 days of therapy and follow up chest CT after as well as outpatient pulmonary followup Gram + bacteremia Blood cultures 2/2 growing gram + cocci in clusters continue IV vanco echo pending seen by ID, rec rule out - HIV, Hep C pending repeat blood cultures in am Essential hypertension Continue lisinopril. IVDU Continue methadone 45 mg addiction medicine consult pending Tobacco smoking Tobacco cessation education NRT DVT prophylaxis: Heparin subcut Code status: Full Requires ongoing inpatient stay for cavitary lung nodule treatment with IV antibiotics. Patient will need evaluation by subspecialty for further recommendation and/or interventions. Quality Stroke Does the patient have a stroke diagnosis?: No VTE Prior VTE?: No VTE Risk Level:: Medical - moderate - high VTE Device Contraindication: Treatment Not Indicated VTE Drug Contraindication: N/A - Med Ordered
--- NOTE | 2023-07-18 14:44 | P.CNID_ITS ---
History of Present Illness Data of Consult Service Date: 07/18/23 Requesting physician: Carola Combs Primary Care Provider: Marvin Ayala DO, MD HPI Reason for consult: right sided lung lesion/probable abscess He presents with pain right lower lung and flank area. He has blood cultures gram positive cocci in clusters 07/17 x 2. He uses IVDrugs and had epidural abscess left in past. He has no dysuria or other symptoms. Review of Systems 2 Review of Systems: Yes all other systems are reviewed and are negative [facility] Past Medical History Medical History (Updated 07/18/23 @ 14:47 by Terrie Schaeffer MD) Bacteremia Tobacco abuse Epidural abscess IV drug user Essential hypertension Family History Family history: reviewed and not pertinent Social History Social History Household Members: None Housing: Other Unable to assess alcohol history related to: Unknown Comment: refuses bed alarm Patient Tobacco Use Status: Never used Tobacco Smoked in Last 30 Days: No e-Cigarette/Vaping Use: Never Used Patient Interested in Nicotine Replacement: No Patient Given Instructions on How to Stop Smoking: No Use of substances other than those prescribed or required for medical reasons: Yes Substance Use Type: Heroin Substance Use Frequency: Occasionally Last Used Substance: Days (ago) Last Used Substance Other:: three days prior to admission Currently Displaying Signs/Symptoms of Drug Intoxication Withdrawal: No Any prior treatment program specific to substance use: No Advance Directives: No Advance Directives Information Provided: No Do you have thoughts of harming others: None Do you have a plan to hurt others: No Plan Recently lost weight without trying: No Eating poorly because of decreased appetite: No Nutrition Risks: No Nutritional Risk Poor oral hygiene: No service: No Meds Allergies Allergy/AdvReac Type Severity Reaction Status Date / Time amoxicillin Allergy Diarrhea Verified 07/17/23 14:28 Active Medications: Current Medications Acetaminophen (Acetaminophen 325 Mg Tablet) 975 mg PO Q8H [facility] Last Admin: 07/18/23 12:09 Dose: 975 mg Aspirin (Aspirin 81 Mg Tab.Chew) 81 mg PO DAILY [facility] Last Admin: 07/18/23 08:38 Dose: 81 mg Heparin Sodium (Porcine) (Heparin Sodium,Porcine 5,000 Unit/Ml Vial) 5,000 unit SUBCUT Q8H [facility] Last Admin: 07/18/23 08:43 Dose: Not Given Hydromorphone HCl (Hydromorphone Hcl 1 Mg/Ml Syringe) 1 mg IVPUSH Q4H PRN; Protocol PRN Reason: Pain, Severe (Pain Scale 7-10) Last Admin: 07/18/23 08:52 Dose: 1 mg Sodium Chloride (Ns) 1,000 mls @ 100 mls/hr IVCONT .Q10H [facility] Last Infusion: 07/18/23 12:41 Dose: 100 mls/hr Piperacillin Sod/Tazobactam (Sod 3.375 gm/ Sodium Chloride) 50 mls @ 100 mls/hr IV Q6H [facility] Last Infusion: 07/18/23 12:41 Dose: Infused Vancomycin HCl 750 mg/ Sodium (Chloride) 265 mls @ 265 mls/hr IV Q12H [facility] Last Infusion: 07/18/23 12:08 Dose: Infused Lisinopril (Lisinopril 20 Mg Tablet) 20 mg PO DAILY [facility]; Protocol Last Admin: 07/18/23 08:37 Dose: 20 mg Methadone HCl (Methadone Hcl 20 Mg/2 Ml Oral.Conc) 45 mg PO DAILY [facility] Last Admin: 07/18/23 08:38 Dose: 45 mg Multivitamins/Vitamin C (Multivitamin Tablet) 1 tab PO DAILY [facility] Last Admin: 07/18/23 08:37 Dose: 1 tab Nicotine Polacrilex (Nicotine Polacrilex 2 Mg Gum) 2 mg BUCCAL Q2H PRN PRN Reason: Nicotine Cravings Pharmacy Consult (Consult Rx Vancomycin Dosing) 1 each MISCELLANE DAILY PRN PRN Reason: Consult order Sodium Chloride (0.9 % Sodium Chloride Flush 3 Ml Syringe) 3 ml IVFLUSH QSHIFT [facility] Last Admin: 07/18/23 08:43 Dose: Not Given Trazodone HCl (Trazodone Hcl 100 Mg Tablet) 100 mg PO BEDTIME [facility] Last Admin: 07/18/23 03:01 Dose: 100 mg Home Medications Medication Instructions Recorded Confirmed Last Taken Type cholecalciferol (vitamin D3) 25 25 mcg PO DAILY 07/18/23 07/18/23 07/16/23 History mcg (1,000 unit) capsule (Vitamin D3) latanoprost 0.005 % eye drops 1 drp ophthalmic (eye) BEDTIME 07/18/23 07/18/23 07/16/23 History lisinopril 40 mg tablet 40 mg PO DAILY 07/18/23 07/18/23 07/16/23 History methadone 10 mg/mL oral 45 mg PO DAILY 07/18/23 07/18/23 07/17/23 History concentrate (Methadone Intensol) multivitamin 1 tab PO DAILY 07/18/23 07/18/23 07/16/23 History tadalafil 10 mg tablet 10 mg PO DAILY PRN Erectile 07/18/23 07/18/23 07/16/23 History Dysfunction testosterone 50 mg/5 gram (1 %) 1 packet topical DAILY 07/18/23 07/18/23 07/16/23 History transdermal gel trazodone 50 mg tablet 100 mg PO BEDTIME 07/18/23 07/18/23 07/16/23 History Physical Exam 2 Vital Signs: Vital Signs: Last Vital Signs Temp 97.7 F 07/18/23 07:12 Pulse 52 07/18/23 07:12 Resp 18 07/18/23 07:12 BP 102/59 L 07/18/23 07:12 Pulse Ox 93 07/18/23 07:12 O2 Del Method Room Air 07/18/23 07:12 BMI result Body Mass Index 30.8 Const: General: cooperative HEENT: Head: Yes normal to inspection Face and sinus: Yes normal facial exam Mouth: Normal oral and palatal mucosa present Teeth and gingiva: d entition normal Eyes: General: appearance normal, both eyes and all related structures P upils: Equal, round and reactive pupils present Resp: Other: rhonchi right base Effort & Inspection: normal respiratory effort Cardio: Rate: regular rate Rhythm: regular rhythm GI: Palpation (GI): Soft to palpation and nontender : Other: some discomfort right flank probable extending from lung Skin: General skin exam: no rashes or lesions noted Neuro: General: moves all extremities Cranial nerves: Yes Equal, round and reactive pupils present Extrem: General: Yes normal to inspection Psych: Appearance: grossly normal Results Labs 07/18/23 06:03 07/18/23 06:03 Labs: Short CBC 07/17/23 07/18/23 Range/Units 15:23 06:03 WBC 10.3 8.7 (4.8-10.8) X10*3/uL Hgb 13.4 L 12.8 L (14.0-18.0) g/dl Hct 39.7 L 38.6 L (42.0-52.0) % Plt Count 152 L 149 L (160-400) X10*3/uL BMP 07/17/23 07/18/23 15:23 06:03 Sodium 139 141 Potassium 4.0 3.5 Chloride 104 108 Carbon Dioxide 28 23 BUN 24 H 22 H Creatinine 1.17 1.01 Calcium 9.5 8.9 D Cardiac Enzymes 07/17/23 Range/Units 15:23 Total Creatine Kinase 15 L (38-174) U/L Liver Function 07/17/23 Range/Units 15:23 Total Bilirubin 0.3 (0.0-1.0) mg/dL AST 15 (5-37) U/L ALT 10 (0-40) U/L Alkaline Phosphatase 81 (39-117) U/L Albumin 3.4 L (3.5-5.0) g/dL Microbiology Microbiology Results: Microbiology 07/17/23 20:31 Blood - Venous Blood Culture - Preliminary Prelim: GPC Gram Stain only 07/17/23 20:31 Blood - Venous Blood Culture - Preliminary Prelim: GPC Gram Stain only Assessment and Plan (1) Pulmonary abscess: Status: Acute (2) Cavitary lesion of lung: Status: Acute (3) IV drug user: Status: Acute (4) Bacteremia: Status: Acute Plan There is bacteremia probable staph or strep,maybe MRSA. Agree likely early lung abscess from IVDA. We should rule out immunosuppression and endocarditis Suggest Vancomycin continue per protocol. Stop Zosyn Check HIV and Hepatitis C Echo evaluate endocarditis. Help with addiction.
--- NOTE | 2023-07-18 15:03 | MHC.RECOVRN ---
Received referral for ACS due to pt. currently receiving methadone 45mg. Went to complete assessment and pt was in room resting. He asked me to come back tomorrow and did report being comfortable on current dose of 45mg methadone. No W/D sx noted. Will return tomorrow for assessment.
[2023-07-18 15:27] VITALS: BP 141/92; PULSE 55; RESP 18; TEMP 36.8; O2SAT 95
[2023-07-18 19:33] VITALS: BP 147/82; PULSE 68; RESP 16; TEMP 37.2; O2SAT 95
[2023-07-18] MEDS: Acetaminophen 1,000 MG/100 ML PIGGYBACK 400 MG IV (20:09)
[2023-07-18] MEDS: iohexoL 350 MG/ML 100 ML INFUS..BTL 85 ML IV (21:20)
--- NOTE | 2023-07-19 | ECG_ITS ---
Test Reason : bradycardia Blood Pressure : / mmHG Vent. Rate : 041 BPM Atrial Rate : 041 BPM P-R Int : 162 ms QRS Dur : 098 ms QT Int : 468 ms P-R-T Axes : 026 005 009 degrees QTc Int : 386 ms Marked sinus bradycardia Abnormal ECG No previous ECGs available Referred By: Carola Combs Electronically Signed By:EREN PAZ
[2023-07-19] MEDS: HYDROmorphone HCl 1 MG/ML SYRINGE IVPUSH ×2 (01:01→19:34)
[2023-07-19 02:42] VITALS: BP 129/71; PULSE 62; RESP 18; TEMP 36.6; O2SAT 97
[2023-07-19] MEDS: LORazepam 1 MG TABLET PO (03:21)
[2023-07-19] MEDS: Acetaminophen 325 MG TABLET 975 MG PO (03:21)
[2023-07-19] MEDS: Ketorolac Tromethamine 30 MG/ML VIAL IVPUSH ×4 (03:28→21:45)
[2023-07-19] MEDS: 0.9 % Sodium Chloride 1,000 ML 100 ML IVCONT (03:29)
--- NOTE | 2023-07-19 04:47 | PC.NURSE ---
Addendum entered by Rachel Smith RN 07/19/23 05:15: Pt woke up c/o flank pain, reminded that Dilaudid was given 2 hrs ago, pt was compliant and agreed, few minutes after, pt was yelling out calling for help, pt seen with increasing anxiety, pain and restlessness, Kwasi Jackson was notified, prn Ativan 1mg po and Tylenol 975 mg po given, a dose of Toradol was also given, pt supported, pt eventually slept after. Original Note: Pt seen at the start of the shift c/o 1010 right flank pain, unable to give schduled po Tylenol, not time for prn Dilaudid, pt is on NPO for a CT abd at 2100, DR. Villalpando was asked if Tylenol can be given IV at this time, ordered and Zcetaminophen 1000mg IV given, pt verbalized minimal effect, and later pt became restless and with increased anxiety R/T to flank pain, Dr. Villalpando was made aware, pt was reassured and was able to be transported to CT. Back to room, Dilaudid 1 mg IV given, pt slept after.
[2023-07-19 06:40] LABS: MANUAL DIFF FLAG NO
[2023-07-19 06:56] LABS: Anion Gap 11 (12-20); Blood Urea Nitrogen 14 mg/dL (9-16); Calcium 8.7 mg/dL (8.4-10.2); Carbon Dioxide 24 mmol/L (22-29); Chloride 111 mmol/L (96-108); Creatinine Clr Calc Pharmacy 93.3; Estimated Glomerular Filt Rate > 60; Glucose Random 118 mg/dL (60-115); Potassium 3.7 mmol/L (3.3-5.1); Sodium 142 mmol/L (135-145)
[2023-07-19 07:09] LABS: Basophils Percent Auto 0.3 % (0-2); Eosinophils Absolute Auto 0.1 X10*3/uL (0.0-0.4); Eosinophils Percent Auto 0.5 % (0-4); Hemoglobin 12.2 g/dl (14.0-18.0); Imm Gran Abs Auto 0.06 X10*3/uL (0.00-0.03); Imm Gran Pct Auto 0.6 % (0.0-0.4); Lymphocytes Absolute Auto 1.3 X10*3/uL (1.2-4.9); Lymphocytes Percent Auto 13.7 % (20-40); Mean Corpuscular Hemoglobin 27.2 pg (27.0-33.0); Mean Corpuscular Volume 82.4 fL (80.0-98.0); Mean Platelet Volume 10.3 fL (9.4-12.4); Monocytes Percent Auto 10.2 % (2-11); Neutrophils Absolute Auto 7.3 x10*3/uL (2.0-8.3); Neutrophils Percent Auto 74.7 % (45-73); Platelet Count 150 X10*3/uL (160-400); Red Blood Count 4.49 X10*6/uL (4.60-5.80); Red Cell Distribution Width 13.4 % (11.0-16.0); White Blood Count 9.7 X10*3/uL (4.8-10.8)
[2023-07-19 07:19] LABS: HIV AB/AG Nonreactive (Nonreactive); HIV Num 1 0.06 S/CO (0.00-0.99); ~HepC Num1 12.66 S/CO (0.00-0.79); ~Hepatitis C Antibody Reactive (Nonreactive)
[2023-07-19 08:01] VITALS: BP 144/80; PULSE 53; RESP 16; TEMP 36.4; O2SAT 94
[2023-07-19] MEDS: methADONE HCl 20 MG/2 ML ORAL.CONC 45 MG PO (08:18)
[2023-07-19] MEDS: lisinopriL 20 MG TABLET PO (08:19)
[2023-07-19] MEDS: Multivitamin TABLET 1 TAB PO (08:19)
[2023-07-19] MEDS: 0.9 % Sodium Chloride Flush 3 ML SYRINGE IVFLUSH ×3 (08:20→19:35)
[2023-07-19 09:30] VITALS: PULSE 61
--- NOTE | 2023-07-19 10:01 | HE.PHANOTE ---
RE: Vanco Trough on 07/19 - 12.0. Dose increased to 1250mg Q12H, predicted AUC 490. Next trough to be drawn at 07/20 0900.
[2023-07-19] MEDS: Docusate Sodium 100 MG CAPSULE PO (10:19)
[2023-07-19] MEDS: vancomycin HCL 1,250 MG in 0.9 % Sodium Chloride 250 ML 166.67 MG IV ×2 (10:54→22:38)
[2023-07-19 11:43] VITALS: BP 140/80; PULSE 50; RESP 14; TEMP 36.4; O2SAT 97
--- NOTE | 2023-07-19 12:00 | P.PNIM_ITS ---
Subjective Subjective Date of Service: 07/19/23 Interval History: seen and examined this morning follow up bacteremia, lung abscess right flank pain improving intermittent dry cough, mild sob. no fever or chills Review of Systems Review of Systems: Yes all other systems are reviewed and are negative Constitutional Constitutional: Denies chills and Denies fever(s) Cardiovascular Cardiovascular: Denies chest pain and Denies palpitations Endocrine Endocrine: Denies palpitations Physical Exam 2 Vital Signs: Vital Signs: Last Vital Signs Temp 97.6 F 07/19/23 11:43 Pulse 50 07/19/23 11:43 Resp 14 07/19/23 11:43 BP 140/80 H 07/19/23 11:43 Pulse Ox 97 07/19/23 11:43 O2 Del Method Room Air 07/19/23 11:43 BMI result Body Mass Index 30.8 Const: General: cooperative, comfortable, no acute distress, alert and awake Nutritional Appearance: overweight Orientation/consciousness: patient oriented x3 Resp: Effort & Inspection: normal respiratory effort, able to speak in complete sentences, no respiratory distress and no use of accessory muscles A uscultation: clear to auscultation bilaterally Cardio: Rate: regular rate GI: Inspection: No distended Palpation (GI): Soft to palpation and nontender Neuro: General: patient oriented x3, moves all extremities and CN's II-XI intact bilaterally Extrem: Other: strength equal b/l lower extremities no midline tenderness spine General: Yes no pedal edema Objective Data Active Medications Acetaminophen (Acetaminophen 325 Mg Tablet) 975 mg PO Q6H PRN PRN Reason: Pain, Severe (Pain Scale 7-10) Last Admin: 07/19/23 03:21 Dose: 975 mg Documented By: FREDI Docusate Sodium (Docusate Sodium 100 Mg Capsule) 100 mg PO DAILY [facility] Last Admin: 07/19/23 10:19 Dose: 100 mg Documented By: ANIA Heparin Sodium (Porcine) (Heparin Sodium,Porcine 5,000 Unit/Ml Vial) 5,000 unit SUBCUT Q8H [facility] Last Admin: 07/19/23 08:31 Dose: Not Given Documented By: ANIA Non-Admin Reason: Patient Refused Hydromorphone HCl (Hydromorphone Hcl 1 Mg/Ml Syringe) 1 mg IVPUSH Q4H PRN; Protocol PRN Reason: Pain, Severe (Pain Scale 7-10) Last Admin: 07/19/23 01:01 Dose: 1 mg Documented By: FREDI Vancomycin HCl 1,250 mg/ (Sodium Chloride) 250 mls @ 166.667 mls/hr IV Q12H [facility] Last Admin: 07/19/23 10:54 Dose: 166.67 mls/hr Documented By: ANIA Ketorolac Tromethamine (Ketorolac Tromethamine 30 Mg/Ml Vial) 30 mg IVPUSH Q6H [facility] Last Admin: 07/19/23 10:17 Dose: 30 mg Documented By: ANIA Lisinopril (Lisinopril 20 Mg Tablet) 20 mg PO DAILY [facility]; Protocol Last Admin: 07/19/23 08:19 Dose: 20 mg Documented By: ANIA Lorazepam (Lorazepam 1 Mg Tablet) 1 mg PO TID PRN PRN Reason: Anxiety Last Admin: 07/19/23 03:21 Dose: 1 mg Documented By: FREDI Methadone HCl (Methadone Hcl 20 Mg/2 Ml Oral.Conc) 45 mg PO DAILY [facility] Last Admin: 07/19/23 08:18 Dose: 45 mg Documented By: ANIA Multivitamins/Vitamin C (Multivitamin Tablet) 1 tab PO DAILY [facility] Last Admin: 07/19/23 08:19 Dose: 1 tab Documented By: ANIA Nicotine Polacrilex (Nicotine Polacrilex 2 Mg Gum) 2 mg BUCCAL Q2H PRN PRN Reason: Nicotine Cravings Pharmacy Consult (Consult Rx Vancomycin Dosing) 1 each MISCELLANE DAILY PRN PRN Reason: Consult order Polyethylene Glycol (Polyethylene Glycol 3350 17 Gm Powd.Pack) 17 gm PO DAILY PRN PRN Reason: Constipation Sodium Chloride (0.9 % Sodium Chloride Flush 3 Ml Syringe) 3 ml IVFLUSH QSHIFT [facility] Last Admin: 07/19/23 08:20 Dose: 3 ml Documented By: ANIA Trazodone HCl (Trazodone Hcl 100 Mg Tablet) 100 mg PO BEDTIME [facility] Last Admin: 07/18/23 21:29 Dose: 100 mg Documented By: FREDI Labs 07/19/23 06:27 07/19/23 06:27 Labs: Laboratory Results - last 24 hr 07/19/23 06:27 MCV 82.4 MCH 27.2 MCHC 33.0 RDW 13.4 Plt Count 150 L MPV 10.3 Immature Gran % (Auto) 0.6 H Neut % (Auto) 74.7 H Lymph % (Auto) 13.7 L [place] % (Auto) 10.2 Eos % (Auto) 0.5 Baso % (Auto) 0.3 Lymph # (Auto) 1.3 [place] # (Auto) 1.0 Eos # (Auto) 0.1 Baso # (Auto) 0.0 Abs Immat Gran (auto) 0.06 H Absolute Neuts (auto) 7.3 Absolute Nucleated RBC 0.000 Nucleated RBC % (auto) 0.0 Anion Gap 11 L Estim Creat Clear Calc 93.3 Estimated GFR > 60 Random Glucose 118 H Calcium 8.7 Random Vancomycin 12.0 L Hepatitis C Ab (EIA) Reactive H HIV 1&2 Ab/P24 Ag 4thGn Nonreactive Microbiology Microbiology Results: Microbiology 07/17/23 20:31 Blood Culture - Preliminary Blood - Venous Staphylococcus species 07/17/23 20:31 Blood Culture - Preliminary Blood - Venous Staphylococcus species Assessment and Plan (1) Bacteremia: Status: Acute (2) Pulmonary abscess: Status: Acute Plan This is a 57 year old male with history IVDU, HTN, h/o epidural abscess who presents with right side pain found to have cavitary lung lesion. Cavitary right lower lobe nodule (1.5 cm) probable lung abscess Continue IV vancomycin, zosyn stopped seen by pulmonary- will need 28 days of therapy and follow up chest CT after as well as outpatient pulmonary followup Staphylococcus bacteremia Blood cultures 2/2 growing staph species, sensitivities pending continue IV vanco echo pending ID following HIV negative, HCV Ab + will check viral load Surveillance blood cultures pending bradycardia likely sinus due to methadone will check ekg cardiac monitoring Essential hypertension Continue lisinopril. IVDU Continue methadone 45 mg addiction medicine consult pending monitor HR Tobacco smoking Tobacco cessation education NRT DVT prophylaxis: Heparin subcut Code status: Full Requires ongoing inpatient stay for cavitary lung nodule treatment with IV antibiotics. Patient will need evaluation by subspecialty for further recommendation and/or interventions. Quality Stroke Does the patient have a stroke diagnosis?: No VTE Prior VTE?: No VTE Risk Level:: Medical - moderate - high VTE Device Contraindication: Treatment Not Indicated VTE Drug Contraindication: N/A - Med Ordered
--- NOTE | 2023-07-19 12:29 | PC.NURSE ---
HR 50-54 while pt awake. Dropping to mid to high 40's when asleep. Carola Combs notified, pt placed on tele- SR/SB. EKG ordered. Will continue to monitor. Pt denies dizziness, lightheadedness or chest pain at this time.
--- NOTE | 2023-07-19 13:02 | PC.NURSE ---
EKG done, Carola Combs evaluated it. Will continue to monitor as pt asymptomatic at this time
--- NOTE | 2023-07-19 13:17 | P.PNPL_ITS ---
Subjective Subjective Date of Service: 07/19/23 Principal diagnosis: Staphylococcal bacteremia and pulmonary abscess Interval history: Improving dyspnea and chest pain Objective Data Labs 07/19/23 06:27 07/19/23 06:27 Labs: Laboratory Results - last 24 hr 07/19/23 06:27 WBC 9.7 RBC 4.49 L Hgb 12.2 L Hct 37.0 L MCV 82.4 MCH 27.2 MCHC 33.0 RDW 13.4 Plt Count 150 L MPV 10.3 Immature Gran % (Auto) 0.6 H Neut % (Auto) 74.7 H Lymph % (Auto) 13.7 L [place] % (Auto) 10.2 Eos % (Auto) 0.5 Baso % (Auto) 0.3 Lymph # (Auto) 1.3 [place] # (Auto) 1.0 Eos # (Auto) 0.1 Baso # (Auto) 0.0 Abs Immat Gran (auto) 0.06 H Absolute Neuts (auto) 7.3 Absolute Nucleated RBC 0.000 Nucleated RBC % (auto) 0.0 Sodium 142 Potassium 3.7 Chloride 111 H Carbon Dioxide 24 Anion Gap 11 L BUN 14 Creatinine 0.86 Estim Creat Clear Calc 93.3 Estimated GFR > 60 Random Glucose 118 H Calcium 8.7 Random Vancomycin 12.0 L Hepatitis C Ab (EIA) Reactive H HIV 1&2 Ab/P24 Ag 4thGn Nonreactive Microbiology Microbiology Results: Microbiology 07/17/23 20:31 Blood - Venous Blood Culture - Preliminary Staphylococcus species 07/17/23 20:31 Blood - Venous Blood Culture - Preliminary Staphylococcus species Physical Exam 2 Vital Signs: Vital Signs: Last Vital Signs Temp 97.6 F 07/19/23 11:43 Pulse 50 07/19/23 11:43 Resp 14 07/19/23 11:43 BP 140/80 H 07/19/23 11:43 Pulse Ox 97 07/19/23 11:43 O2 Del Method Room Air 07/19/23 11:43 BMI result Body Mass Index 30.8 Const: General: no acute distress, alert and awake Eyes: Sclerae: sclerae normal EOM: EOMs intact bilaterally Neck: Neck: Yes no lymphadenopathy, Yes trachea midline and Yes supple Resp: Effort & Inspection: normal respiratory effort and no respiratory distress Auscultation: clear to auscultation bilaterally Cardio: Rate: regular rate Rhythm: regular rhythm Heart sounds: no gallops, no murmurs and no rubs GI: Palpation (GI): Soft to palpation and Other GI palpation findings present ( Nontender) Auscultation: normal bowel sounds Extrem: General: Yes no pedal edema, No clubbing and No cyanosis Procedures Date of Service Date of Service: 07/19/23 Assessment and Plan Assessment and plan (1) Emphysema lung: Status: Acute (2) Pulmonary abscess: Status: Acute (3) Bacteremia due to Staphylococcus: Status: Acute Plan Impression: 57-year-old gentleman IV drug user admitted with staphylococcal bacteremia and pulmonary abscess (could be due to septic embolus) improving slowly. 2D echo is pending. Recommendations: Continue vancomycin until susceptibilities available, then consider appropriate step-down for total of 28 day of therapy. Time Spent With Patient Time: Total time managing care of this patient today ____ minutes. Progress Note: Quality Stroke Does the patient have a stroke diagnosis?: No
--- NOTE | 2023-07-19 13:26 | MHC.RECOVRN ---
Met with pt [id number] after consult placed to Addiction Medicine for H/O IVDU and currently on Methadone.? Chart review completed and received report from floor nurse Vera. Pt had presented to the ED with severe right flank pain over last few days which increases with movement and deep breathing. Pt was admitted to the floor for right lower lung nodule requiring treatment with IV abx.? He is currently on 45mg methadone for MAT with a h/o IV drug use.? ?He also has an order for Dilaudid 1mg IV push every 4 hours as needed for severe pain and APAP 975mg PO Q 6 hours PRN severe pain Upon assessment pt is lying in bed awake and alert.? He reports good pain control at this time but does report that his pain gets worse in the afternoon.? He denies any W/D sx and none observed.? Pt reports he has been on MAT for several years and has used both suboxone and methadone.? He reports that he was using IV ?whatever they sell on the street? and that this recovery period has been for 3 years.? Pt is interested in possibly trialing a split dose of methadone to see if this will help with his pain.? He does not wish to increase at this time.? He is also interested in meeting with provider of [facility] to discuss option of switching from methadone to suboxone.? T/W provided pt with resources for the [facility] upon D/C and consulted with MANAGER MEDICAL AFF[employer]IRS Thania Schrader re:? pt?s request of split dose.? Provider feels that pt should utilize prescribed pain meds more consistently for pain and not change methadone dose. I also informed provider that pt would like to discuss with her the transition of methadone to suboxone.? I went back and informed pt of provider recommendations and he verbalized understanding.? Will continue to provide support while admitted.
--- NOTE | 2023-07-19 17:56 | PC.NURSE ---
Pt SB in the 40's at rest. Asymptomatic. Ambulated in hallway- HR 60's to 70's with ambulation. Currently pt sitting up in chair
[2023-07-19 19:26] VITALS: BP 130/75; PULSE 55; RESP 18; TEMP 36.2; O2SAT 96
[2023-07-19] MEDS: traZODone HCL 100 MG TABLET PO (21:45)
[2023-07-20] MEDS: HYDROmorphone HCl 1 MG/ML SYRINGE IVPUSH (00:44)
[2023-07-20 03:59] VITALS: BP 165/90; PULSE 50; RESP 18; TEMP 36.4; O2SAT 96
[2023-07-20] MEDS: Ketorolac Tromethamine 30 MG/ML VIAL IVPUSH ×2 (04:09→08:16)
--- NOTE | 2023-07-20 04:19 | PC.NURSE ---
HR on tele went down to 35 briefly and then to 40s, rest of vitals WNL, pt is asymptomatic, Dr. Villalpando was made aware.
--- NOTE | 2023-07-20 05:41 | PC.NURSE ---
Message from lab for a critical blood culture 1 out of 2 sets positive for gram positive cocci in clusters, Dr. Villalpando was made aware.
[2023-07-20 06:28] LABS: Creatinine Clr Calc Pharmacy 92.2; Estimated Glomerular Filt Rate > 60
--- NOTE | 2023-07-20 07:00 | CA_ITS ---
Transthoracic Echocardiogram Amended Patient (Last, First, Middle): Tayo Fisher A Gender: Male Date of : 1965 Age: 57 Procedure Date: 07/20/2023 Procedure Type: Transthoracic Echocardiogram Location: [facility] Height: 165.1 cm Weight: 83.92 kg BSA: 1.91 m2 Heart Rate: bpm BP: 165 / 90 mmHg Financial Compliance Examiner: LUIS Referring MD: Carola VELIZ Symptoms: bacteremia; eval for endocarditis Study Quality: Adequate ECG Rhythm: Sinus bradycardia Conclusions: - The left ventricular systolic function is normal. The calculated ejection fraction is 60% by biplane method. - Tricuspid valve endocarditis with [id number] regurgitation. - (signed again due to technical issues) Findings Left Ventricle Normal left ventricular cavity size. There is mildly increased left ventricular wall thickness. The left ventricular systolic function is normal. The calculated ejection fraction is 60% by biplane method. There is no evidence of regional wall motion abnormalities. Diastolic function is normal for age. There is moderate septal asymmetric hypertrophy. Right Ventricle Moderately increased right ventricular cavity size. There is normal right ventricular systolic function. Atria The left atrium is normal in size. The right atrium is severely dilated. Aortic Valve There is a normal trileaflet aortic valve. There is no aortic valve stenosis. There is no aortic valve regurgitation. Mitral Valve The mitral valve appears normal. There is trace mitral valve regurgitation. There is no mitral valve stenosis. Pulmonic Valve The pulmonic valve is likely normal. Tricuspid Valve There is mild to moderate tricuspid valve regurgitation. Tricuspid valve appears thickened, suggestive of vegetation. Measurement in one of the views 1.1 x 0.8cm, but could be under-estimation. Great Vessels There is mild dilatation of the ascending aorta measuring 4.10 cm. Venous The inferior vena cava is dilated and collapses less than 50% with inspiration. Pericardium/Pleural There is no evidence of pericardial effusion. Prior Study Comparison No prior study available for comparison. Measurements 2D Linear Measurements IVSd: 1.39 0.6-0.9/0.6-1.0 cm LVIDd: 5.67 3.9-5.3/4.2-5.9 cm LVIDd Index: 2.97 2.4-3.2/2.2-3.1 cm/m2 LVIDs: 3.80 2.0-3.6 cm LVPWd: 1.04 0.7-1.1 cm Ao Root: 3.60 2.1-3.5 cm LA Diam: 4.30 2.7-3.8/3.0-4.0 cm LAIDs Index: 2.25 1.5-2.3 cm/m2 LV Mass: 363.12 67-162/88-224 g LV Mass Index: 190.12 43-95/49-115 g/m2 LVOT Diam: 2.20 3.0+(-)1.3 cm 2D Volumes LA Vol: 26.60 2D Systolic Function EF 4C: 65.20 >55% EF 2C: 55.50 >55% EF BiP: 60.00 >55% Mitral Valve MV Pk E: 0.74 MV PK A: 0.89 MV Decel Time: 199.00 E/A: 0.80 E'Lateral: 12.30 E'Medial: 6.31 E/E' Med: 11.70 E/E' Lat: 6.00 PHT: 58.00 MVA PHT: 3.79 Decel [place]: 3.70 Aortic Valve AoV Pk Rafiq: 1.44 AoV Mn Rafiq: 0.90 AoV VTI: 0.32 AoV Pk Grad: 8.00 Aov Mn Grad: 4.00 KATHLEEN Cont.VTI: 3.33 LVOT LVOT Pk Rafiq: 1.18 LVOT Mn Rafiq: 0.76 LVOT VTI: 0.28 LVOT Pk Grad: 6.00 LVOT Mn Grad: 3.00 LVOT Diam: 2.20 LVOT Area: 3.80 Diastolic Function MV Pk E: 0.74 MV Pk A: 0.89 E/A: 0.80 E'Medial: 6.31 E/E' Med: 11.70 E' Laterial: 12.30 E/E' Lat: 6.00 Right Ventricle TAPSE (mm): 33.00 TVS' Rafiq: 18.00 Tricuspid Valve TR Pk Rafiq: 2.25 TR Pk Grad: 20.00 RA Press: 15.00 RVSP: 35.00 Great Vessels Aorta Ao Root-2D: 3.60 2.0-3.7 cm Ao Asc: 4.10 2.1-3.4 cm Pulmonary Valve PV Pk Rafiq: 1.05 Peak PV Grad: 4.00 Updated in Other Vendor System with Status of Final Reno Hemphill MD electronically signed on 07/21/2023 9:49:22 AM with status of Final
[2023-07-20 07:15] VITALS: BP 124/84; PULSE 36; RESP 20; TEMP 36.7; O2SAT 97
[2023-07-20] MEDS: ondansetron HCL 4 MG/2 ML VIAL IVPUSH (07:43)
[2023-07-20] MEDS: 0.9 % Sodium Chloride Flush 3 ML SYRINGE IVFLUSH ×3 (08:18→22:05)
[2023-07-20] MEDS: methADONE HCl 20 MG/2 ML ORAL.CONC 45 MG PO (09:01)
[2023-07-20 10:07] LABS: Vancomycin Random 13.6 mcg/mL (15-20)
--- NOTE | 2023-07-20 10:18 | HE.PHANOTE ---
Re: Vanco Based on patient's renal function and trough returning at 13.6. Continue current dose of 1250mh Q12H. Next trough 07/22 at 2100.
[2023-07-20] MEDS: vancomycin HCL 1,250 MG in 0.9 % Sodium Chloride 250 ML 166.67 MG IV ×2 (10:42→22:07)
[2023-07-20] MEDS: Nicotine Polacrilex 2 MG GUM BUCCAL (10:52)
[2023-07-20] MEDS: HYDROmorphone HCl 1 MG/ML SYRINGE 0.5 MG IVPUSH ×2 (10:53→18:31)
--- NOTE | 2023-07-20 11:04 | HO.ADDICT_ITS ---
History of Present Illness Date of Service: 07/20/2023 Chief Complaint: Right lower lobe lesion Reason for Consult: OUD Sources of Information: patient interviewed and chart reviewed HPI Narrative: Patient is a 57 year old male currently medically admitted with pulmonary abscess History of OUD, engaged in treatment with [facility]. Reports he has been taking methadone for the last couple of months . Current dose is 45mg daily. He reports being comfortable with this dose. Initially considering transition to buprenorphine--encouraged to follow up with OTP to address this. Prior to starting methadone, he reports using several bundles of heroin/fentantyl daily IV. Denies ever sharing needles, but does re-use needles frequently. Risk reduction discussion--patient expressing frustration, I know better, it was so stupid . Encouraged to reframe as an opportunity to make changes to injection practices once discharged, should he decide to use again. Reporting constipation since starting methadone, has been taking stool softener since admission which he reports has been helpful. Encouraged to continue at home if needed. Medical Evaluation Reviewed: Yes HR low 40's at time of documenting this note Review of Systems Constitutional: Reports as per HPI and Reports no additional constitutional complaints Diagnostics Vital Signs (24Hr): Vital Signs - 24 hr 07/19/23 11:43 07/19/23 19:26 07/20/23 03:59 Temperature 97.6 F 97.1 F 97.5 F Pulse Rate 50 55 50 Respiratory Rate 14 18 18 Blood Pressure 140/80 H 130/75 165/90 H Pulse Oximetry 97 96 96 Oxygen Delivery Method Room Air Room Air Room Air 07/20/23 07:15 Temperature 98.0 F Pulse Rate 36 L Respiratory Rate 20 Blood Pressure 124/84 Pulse Oximetry 97 Oxygen Delivery Method Room Air BMI result Body Mass Index 30.8 Labs 07/19/23 06:27 07/20/23 05:45 Labs: Laboratory Results - last 48 hr 07/19/23 07/20/23 07/20/23 06:27 05:45 09:37 WBC 9.7 RBC 4.49 L Hgb 12.2 L Hct 37.0 L MCV 82.4 MCH 27.2 MCHC 33.0 RDW 13.4 Plt Count 150 L MPV 10.3 Immature Gran % (Auto) 0.6 H Neut % (Auto) 74.7 H Lymph % (Auto) 13.7 L [place] % (Auto) 10.2 Eos % (Auto) 0.5 Baso % (Auto) 0.3 Lymph # (Auto) 1.3 [place] # (Auto) 1.0 Eos # (Auto) 0.1 Baso # (Auto) 0.0 Abs Immat Gran (auto) 0.06 H Absolute Neuts (auto) 7.3 Absolute Nucleated RBC 0.000 Nucleated RBC % (auto) 0.0 Hold Purple Top SEE NOTE Sodium 142 Potassium 3.7 Chloride 111 H Carbon Dioxide 24 Anion Gap 11 L BUN 14 Creatinine 0.86 0.87 Estim Creat Clear Calc 93.3 92.2 Estimated GFR > 60 > 60 Random Glucose 118 H Calcium 8.7 Random Vancomycin 12.0 L 13.6 L Hepatitis C Ab (EIA) Reactive H HIV 1&2 Ab/P24 Ag 4thGn Nonreactive Imaging Radiology Impressions: ITS Impressions Chest X-Ray 07/17/23 20:44 IMPRESSION: Low lung volume. No acute abnormality of chest. Chest CT 07/17/23 21:32 IMPRESSION: New 1.5 cm cavitary right lower lobe nodule. Infectious, inflammatory and neoplastic processes should considered. Stable 6 mm lingular pulmonary nodule chest CT April 2022. Continued follow-up as per lung cancer screening . Fleischner guidelines were followed. Abdomen/Pelvis CT 07/18/23 21:20 IMPRESSION: 1. Findings suggest possible constipation. No bowel obstruction, free intraperitoneal air or abscess is seen. There is no appendicitis or diverticulitis. 2. No intra-abdominal mass, abscess, free fluid or lymphadenopathy is seen. 3. No urinary calculus or obstruction is seen. 4. There are small fat-containing umbilical and left inguinal hernia defects. 5. There are multi-level degenerative changes of the spine. Fleischner guidelines were followed. Mental Status Exam Mental Status Exam Patient Appearance: Appropriate Level of Consciousness: Awake, Appropriate and Alert Patient Behavior: Appropriate, Guarded (slightly) and Talkative Mood Description: Calm Affect Description: Calm Speech Pattern: Clear Medications Medications Current Medications Acetaminophen (Acetaminophen 325 Mg Tablet) 975 mg PO Q6H PRN PRN Reason: Pain, Severe (Pain Scale 7-10) Last Admin: 07/19/23 03:21 Dose: 975 mg Docusate Sodium (Docusate Sodium 100 Mg Capsule) 100 mg PO DAILY [facility] Last Admin: 07/20/23 08:20 Dose: Not Given Heparin Sodium (Porcine) (Heparin Sodium,Porcine 5,000 Unit/Ml Vial) 5,000 unit SUBCUT Q8H [facility] Last Admin: 07/20/23 08:21 Dose: Not Given Hydromorphone HCl (Hydromorphone Hcl 1 Mg/Ml Syringe) 0.5 mg IVPUSH Q4H PRN; Protocol PRN Reason: Pain, Severe (Pain Scale 7-10) Last Admin: 07/20/23 10:53 Dose: 0.5 mg Vancomycin HCl 1,250 mg/ (Sodium Chloride) 250 mls @ 166.667 mls/hr IV Q12H [facility] Last Admin: 07/20/23 10:42 Dose: 166.67 mls/hr Ketorolac Tromethamine (Ketorolac Tromethamine 15 Mg/Ml Vial) 15 mg IVPUSH Q6H PRN PRN Reason: Pain, Moderate(Pain Scale 4-6) Lisinopril (Lisinopril 20 Mg Tablet) 20 mg PO DAILY [facility]; Protocol Last Admin: 07/20/23 08:21 Dose: Not Given Lorazepam (Lorazepam 1 Mg Tablet) 1 mg PO TID PRN PRN Reason: Anxiety Last Admin: 07/19/23 03:21 Dose: 1 mg Methadone HCl (Methadone Hcl 20 Mg/2 Ml Oral.Conc) 45 mg PO DAILY [facility] Last Admin: 07/20/23 09:01 Dose: 45 mg Multivitamins/Vitamin C (Multivitamin Tablet) 1 tab PO DAILY [facility] Last Admin: 07/20/23 08:21 Dose: Not Given Nicotine Polacrilex (Nicotine Polacrilex 2 Mg Gum) 2 mg BUCCAL Q2H PRN PRN Reason: Nicotine Cravings Last Admin: 07/20/23 10:52 Dose: 2 mg Ondansetron HCl (Ondansetron Hcl 4 Mg/2 Ml Vial) 4 mg IVPUSH Q6H PRN PRN Reason: Nausea and Vomiting Last Admin: 07/20/23 07:43 Dose: 4 mg Pharmacy Consult (Consult Rx Vancomycin Dosing) 1 each MISCELLANE DAILY PRN PRN Reason: Consult order Polyethylene Glycol (Polyethylene Glycol 3350 17 Gm Powd.Pack) 17 gm PO DAILY PRN PRN Reason: Constipation Sodium Chloride (0.9 % Sodium Chloride Flush 3 Ml Syringe) 3 ml IVFLUSH QSHIFT [facility] Last Admin: 07/20/23 08:18 Dose: 3 ml Trazodone HCl (Trazodone Hcl 100 Mg Tablet) 100 mg PO BEDTIME [facility] Last Admin: 07/19/23 21:45 Dose: 100 mg Allergies Allergies Allergy/AdvReac Type Severity Reaction Status Date / Time amoxicillin Allergy Diarrhea Verified 07/17/23 14:28 Assessment & Plan Assessment & Plan (1) Opioid use disorder: Status: Acute Code(s): F11.90 - Opioid use, unspecified, uncomplicated Assessment and Plan: * HR noted to be low today --unclear if related to methadone as doses have been administered prior to this and HR documented WNL * encouraged to discuss transition to buprenorphine with OTP once discharged * recovery collector to check in this evening Total time managing care of this patient today __35__ minutes. PMFSH Past Medical History Medical History (Updated 07/20/23 @ 11:05 by Thania Schrader CNP) Bacteremia Tobacco abuse Epidural abscess IV drug user Essential hypertension Family History Family history: reviewed and not pertinent Social History Social History Household Members: None Housing: Other Unable to assess alcohol history related to: Unknown Comment: refuses alarm Patient Tobacco Use Status: Never used Tobacco Smoked in Last 30 Days: No e-Cigarette/Vaping Use: Never Used Patient Interested in Nicotine Replacement: No Patient Given Instructions on How to Stop Smoking: No Use of substances other than those prescribed or required for medical reasons: Yes Substance Use Type: Heroin Substance Use Frequency: Occasionally Last Used Substance: Days (ago) Last Used Substance Other:: three days prior to admission Currently Displaying Signs/Symptoms of Drug Intoxication Withdrawal: No Any prior treatment program specific to substance use: No Advance Directives: No Advance Directives Information Provided: No Do you have thoughts of harming others: None Do you have a plan to hurt others: No Plan Recently lost weight without trying: No Eating poorly because of decreased appetite: No Nutrition Risks: No Nutritional Risk Poor oral hygiene: No service: No
[2023-07-20 12:00] VITALS: BP 160/70; PULSE 41; RESP 16; TEMP 36.6; O2SAT 94
--- NOTE | 2023-07-20 14:17 | MHC.CM.PN ---
pt pr rounds pt not ready for dc plan remains home
--- NOTE | 2023-07-20 14:18 | P.PNIM_ITS ---
Subjective Subjective Date of Service: 07/20/23 Interval History: Complaining of right lower chest discomfort has been using IV Dilaudid requesting for more pain medication was noted to be nauseous this morning with queasy stomach heart rate remains low in 40s patient asymptomatic with no lightheadedness, no dizziness, no chest pain or palpitations. Review of Systems All other system reviewed and negative. Physical Exam 2 Vital Signs: Vital Signs: Last Vital Signs Temp 97.8 F 07/20/23 12:00 Pulse 41 L 07/20/23 12:00 Resp 16 07/20/23 12:00 BP 160/70 H 07/20/23 12:00 Pulse Ox 94 07/20/23 12:00 O2 Del Method Room Air 07/20/23 12:00 BMI result Body Mass Index 30.8 Const: Other: General awake alert x3, appears uncomfortable due to nausea, in no acute distress. Neck supple, no JVD. CVS regular rate rhythm, Respiratory lungs clear to auscultation, no respiratory distress, no wheeze, no rhonchi. Gastrointestinal abdomen soft, non tender, bowel sounds audible, no guarding , no rigidity. Extremities no edema. Neuro non focal Skin no rash Psych appropriate affect Objective Data Active Medications Acetaminophen (Acetaminophen 325 Mg Tablet) 975 mg PO Q6H PRN PRN Reason: Pain, Severe (Pain Scale 7-10) Last Admin: 07/19/23 03:21 Dose: 975 mg Documented By: FREDI Docusate Sodium (Docusate Sodium 100 Mg Capsule) 100 mg PO DAILY [facility] Last Admin: 07/20/23 08:20 Dose: Not Given Documented By: FELICIANO Non-Admin Reason: Patient Refused Heparin Sodium (Porcine) (Heparin Sodium,Porcine 5,000 Unit/Ml Vial) 5,000 unit SUBCUT Q8H [facility] Last Admin: 07/20/23 08:21 Dose: Not Given Documented By: FELICIANO Non-Admin Reason: Patient Refused Hydromorphone HCl (Hydromorphone Hcl 1 Mg/Ml Syringe) 0.5 mg IVPUSH Q4H PRN; Protocol PRN Reason: Pain, Severe (Pain Scale 7-10) Last Admin: 07/20/23 10:53 Dose: 0.5 mg Documented By: FELICIANO Vancomycin HCl 1,250 mg/ (Sodium Chloride) 250 mls @ 166.667 mls/hr IV Q12H [facility] Last Infusion: 07/20/23 12:13 Dose: Infused Documented By: FELICIANO Ketorolac Tromethamine (Ketorolac Tromethamine 15 Mg/Ml Vial) 15 mg IVPUSH Q6H PRN PRN Reason: Pain, Moderate(Pain Scale 4-6) Lisinopril (Lisinopril 20 Mg Tablet) 20 mg PO DAILY [facility]; Protocol Last Admin: 07/20/23 08:21 Dose: Not Given Documented By: FELICIANO Non-Admin Reason: Patient Refused Lorazepam (Lorazepam 1 Mg Tablet) 1 mg PO TID PRN PRN Reason: Anxiety Last Admin: 07/19/23 03:21 Dose: 1 mg Documented By: FREDI Methadone HCl (Methadone Hcl 20 Mg/2 Ml Oral.Conc) 45 mg PO DAILY [facility] Last Admin: 07/20/23 09:01 Dose: 45 mg Documented By: FELICIANO Multivitamins/Vitamin C (Multivitamin Tablet) 1 tab PO DAILY [facility] Last Admin: 07/20/23 08:21 Dose: Not Given Documented By: FELICIANO Non-Admin Reason: Patient Refused Nicotine Polacrilex (Nicotine Polacrilex 2 Mg Gum) 2 mg BUCCAL Q2H PRN PRN Reason: Nicotine Cravings Last Admin: 07/20/23 10:52 Dose: 2 mg Documented By: FELICIANO Ondansetron HCl (Ondansetron Hcl 4 Mg/2 Ml Vial) 4 mg IVPUSH Q6H PRN PRN Reason: Nausea and Vomiting Last Admin: 07/20/23 07:43 Dose: 4 mg Documented By: FELICIANO Pharmacy Consult (Consult Rx Vancomycin Dosing) 1 each MISCELLANE DAILY PRN PRN Reason: Consult order Polyethylene Glycol (Polyethylene Glycol 3350 17 Gm Powd.Pack) 17 gm PO DAILY PRN PRN Reason: Constipation Sodium Chloride (0.9 % Sodium Chloride Flush 3 Ml Syringe) 3 ml IVFLUSH QSHIFT [facility] Last Admin: 07/20/23 08:18 Dose: 3 ml Documented By: FELICIANO Trazodone HCl (Trazodone Hcl 100 Mg Tablet) 100 mg PO BEDTIME [facility] Last Admin: 07/19/23 21:45 Dose: 100 mg Documented By: FREDI Labs 07/19/23 06:27 07/20/23 05:45 Labs: Laboratory Results - last 24 hr 07/20/23 07/20/23 05:45 09:37 Hold Purple Top SEE NOTE Estim Creat Clear Calc 92.2 Estimated GFR > 60 Random Vancomycin 13.6 L Microbiology Microbiology Results: Microbiology 07/19/23 09:22 Blood Culture - Preliminary Blood - Venous No growth after 24 hours. 07/19/23 09:22 Blood Culture - Preliminary Blood - Venous Prelim: GPC Gram Stain only 07/17/23 20:31 Blood Culture - Preliminary Blood - Venous Staphylococcus species 07/17/23 20:31 Blood Culture - Preliminary Blood - Venous Staphylococcus species Assessment and Plan (1) Bacteremia: Status: Acute (2) Pulmonary abscess: Status: Acute Plan This is a 57 year old male with history IVDU, HTN, h/o epidural abscess who presents with right side pain found to have cavitary lung lesion. Cavitary right lower lobe nodule (1.5 cm) probable lung abscess on IV vancomycin, WBC normal, no fevers will transition to by mouth antibiotics seen by pulmonary- will need 28 days of therapy and follow up chest CT after as well as outpatient pulmonary followup Complaining of right lower chest discomfort will wean IV Dilaudid and place on IV Toradol Nausea likely due to narcotics, placed on IV Zofran Staphylococcus bacteremia Blood cultures 2/2 growing staph species, sensitivities remains pending , repeat blood culture 1/2 positive for Gram-positive cocci on IV vanco echo pending follow report if negative changed to by mouth antibiotics Case discussed with ID she recommend by mouth Augmentin to cover for cavitary right lobe lesions , Staph species likely contamination HIV negative, HCV Ab +, viral load bradycardia likely sinus due to methadone, EKG showed sinus Ozzie no other acute ischemic changes Patient asymptomatic, continue cardiac monitoring for 24 hours and DC if no change Essential hypertension Continue lisinopril. IVDU Continue methadone 45 mg addiction medicine consult pending monitor HR Tobacco smoking Tobacco cessation education, continue NRT DVT prophylaxis: Heparin subcut Code status: Full Requires ongoing inpatient stay for cavitary lung nodule treatment with IV antibiotics. Patient will need evaluation by subspecialty for further recommendation and/or interventions. Quality Stroke Does the patient have a stroke diagnosis?: No VTE Prior VTE?: No VTE Risk Level:: Medical - moderate - high VTE Device Contraindication: Treatment Not Indicated VTE Drug Contraindication: N/A - Med Ordered
--- NOTE | 2023-07-20 15:19 | P.PNPL_ITS ---
Subjective Subjective Date of Service: 07/20/23 Principal diagnosis: Staphylococcal bacteremia and pulmonary abscess Interval history: Respiratory status and right-sided chest pain continue to improve. Now with episodes of bradycardia. Objective Data Labs 07/19/23 06:27 07/20/23 05:45 Labs: Laboratory Results - last 24 hr 07/20/23 07/20/23 05:45 09:37 Hold Purple Top SEE NOTE Creatinine 0.87 Estim Creat Clear Calc 92.2 Estimated GFR > 60 Random Vancomycin 13.6 L Microbiology Microbiology Results: Microbiology 07/19/23 09:22 Blood - Venous Blood Culture - Preliminary No growth after 24 hours. 07/19/23 09:22 Blood - Venous Blood Culture - Preliminary Prelim: GPC Gram Stain only 07/17/23 20:31 Blood - Venous Blood Culture - Preliminary Staphylococcus species 07/17/23 20:31 Blood - Venous Blood Culture - Preliminary Staphylococcus species Physical Exam 2 Vital Signs: Vital Signs: Last Vital Signs Temp 97.8 F 07/20/23 12:00 Pulse 41 L 07/20/23 12:00 Resp 16 07/20/23 12:00 BP 160/70 H 07/20/23 12:00 Pulse Ox 94 07/20/23 12:00 O2 Del Method Room Air 07/20/23 12:00 BMI result Body Mass Index 30.8 Const: General: no acute distress, alert and awake Eyes: Sclerae: sclerae normal EOM: EOMs intact bilaterally Neck: Neck: Yes no lymphadenopathy, Yes trachea midline and Yes supple Resp: Effort & Inspection: normal respiratory effort and no respiratory distress Auscultation: clear to auscultation bilaterally Cardio: Rate: bradycardic Rhythm: regular rhythm Heart sounds: no gallops, no murmurs and no rubs GI: Palpation (GI): Soft to palpation and Other GI palpation findings present ( Nontender) Auscultation: normal bowel sounds Extrem: General: Yes no pedal edema, No clubbing and No cyanosis Procedures Date of Service Date of Service: 07/20/23 Assessment and Plan Assessment and plan (1) Bacteremia due to Staphylococcus: Status: Acute (2) Pulmonary abscess: Status: Acute Plan Impression: 57-year-old gentleman with staphylococcal bacteremia and pulmonary abscess, now also with tricuspid vegetation and bradycardia. Recommendations: Consider Cardiology evaluation for WILMER ?septal abscess. Continue vancomycin Time Spent With Patient Time: Total time managing care of this patient today ____ minutes. Progress Note: Quality Stroke Does the patient have a stroke diagnosis?: No
[2023-07-20 15:30] VITALS: BP 168/78; PULSE 42; RESP 18; TEMP 36.6; O2SAT 97
[2023-07-20] MEDS: Ketorolac Tromethamine 15 MG/ML VIAL IVPUSH ×2 (15:47→22:05)
[2023-07-20] MEDS: Nicotine 14 MG PATCH.TD24 TRANSDERMA (19:29)
[2023-07-20] MEDS: LORazepam 1 MG TABLET PO (19:32)
[2023-07-20] MEDS: Acetaminophen 325 MG TABLET 975 MG PO (19:34)
[2023-07-20 19:55] VITALS: BP 159/72; PULSE 47; RESP 18; TEMP 36.8; O2SAT 96
--- NOTE | 2023-07-20 20:09 | MHC.RECOVSUP ---
? Reason for consult Recovery support o Current location: [facility] o Identified substance use concern: Heroin - Support ? Intervention: o Community resources provided o Harm reduction discussion ? Plan: o Patient to follow up with [facility] after discharge ? Additional information: Met with Patient And we had a good recovery and Harm reduction talk.. We also talked about resources Patient can go to work on his recovery..
--- NOTE | 2023-07-20 20:33 | PC.NURSE ---
Pt found smoking in stairwell across the hallway from his room. 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
[2023-07-20] MEDS: traZODone HCL 100 MG TABLET PO (22:07)
[2023-07-21 03:42] VITALS: BP 160/75; PULSE 54; RESP 18; TEMP 36.4; O2SAT 96
[2023-07-21] MEDS: Ketorolac Tromethamine 15 MG/ML VIAL IVPUSH ×3 (04:14→23:32)
[2023-07-21 06:30] LABS: Anion Gap 11 (12-20); Blood Urea Nitrogen 22 mg/dL (9-16); Calcium 8.7 mg/dL (8.4-10.2); Carbon Dioxide 24 mmol/L (22-29); Chloride 109 mmol/L (96-108); Creatinine Clr Calc Pharmacy 100.3; Estimated Glomerular Filt Rate > 60; Glucose Random 102 mg/dL (60-115); Potassium 3.6 mmol/L (3.3-5.1); Sodium 140 mmol/L (135-145)
[2023-07-21 07:15] VITALS: BP 165/92; PULSE 52; RESP 20; TEMP 36.4; O2SAT 97
[2023-07-21] MEDS: HYDROmorphone HCl 1 MG/ML SYRINGE 0.5 MG IVPUSH ×3 (07:26→19:27)
[2023-07-21] MEDS: ondansetron HCL 4 MG/2 ML VIAL IVPUSH (07:30)
[2023-07-21] MEDS: lisinopriL 20 MG TABLET PO (08:53)
[2023-07-21] MEDS: Multivitamin TABLET 1 TAB PO (08:54)
[2023-07-21] MEDS: Docusate Sodium 100 MG CAPSULE PO (08:54)
[2023-07-21] MEDS: methADONE HCl 20 MG/2 ML ORAL.CONC 45 MG PO (08:55)
[2023-07-21] MEDS: 0.9 % Sodium Chloride Flush 3 ML SYRINGE IVFLUSH ×3 (09:00→19:28)
[2023-07-21] MEDS: Nicotine 14 MG PATCH.TD24 TRANSDERMA (09:02)
--- NOTE | 2023-07-21 09:11 | P.CONCA_ITS ---
History of Present Illness History of Present Illness Date of Service: 07/21/23 Chief complaint: Right lower lobe lesion Narrative: This is a cardiology consultation regarding tricuspid valve endocarditis. Patient has history of substance abuse and admitted for complaints of right flank pain. He was admitted with a diagnosis of lung abscess. From the cardiac standpoint, there is a question of infective endocarditis affecting the tricuspid valve. Patient states he has been doing drugs for many years, going back decades. He states he has been to multiple hospitals at different times including [facility], [facility] among others. Most recently, he states he is signed out of [facility] against medical advice. Currently, he was positive for Staphylococcus bacteremia but the most recent culture from 07/19 has been negative. He had a transthoracic echocardiogram that showed tricuspid valve vegetation. Patient states that he actually has had endocarditis in the past but he does not know the details. Never had any interventions. Is only been on medications including possibly prolonged IV antibiotics but not very clear. Unfortunately, still doing drugs. He is also on methadone. From the cardiac standpoint, he does not have any symptoms like chest pains or shortness of breath or palpitations or dizzy spells or syncopal episodes or leg swelling or in fact anything cardiac sounding. Does not have any skin rash or other markers of endocarditis. Review of Systems 2 Review of Systems: Yes all other systems are reviewed and are negative Constitutional: Constitutional: Reports as per HPI and Reports no additional constitutional complaints Eyes: Eyes: Reports as per HPI and Denies no additional eye complaints ENT: Denies system reviewed and no additional complaints, except as documented and Reports as per HPI Cardiovascular: Cardiovascular: Reports as per HPI, Reports no additional cardiovascular complaints, Denies acrocyanosis, Denies cool extremities, Denies chest pain, Denies leg edema, Denies lightheadedness, Denies palpitations and Denies dyspnea Respiratory: Respiratory: Reports as per HPI, Denies no additional respiratory complaints and Denies dyspnea Gastrointestinal: Gastrointestinal: Reports as per HPI and Denies no additional gastrointestinal complaints Genitourinary: Genitourinary: Reports no additional male genitourinary complaints and Reports as per HPI Musculoskeletal: Musculoskeletal: Reports no additional musculoskeletal complaints and Reports as per HPI Integumentary/Breasts: Skin/Breast: Reports system reviewed and no additional complaints, except as docu Neurologic: Reports system reviewed and no additional complaints, except as documented and Reports as per HPI Psychiatric: Psychiatric: Reports no additional psychiatric complaints and Reports as per HPI Endocrine: Endocrine: Reports no additional endocrine complaints, Reports as per HPI and Denies palpitations Hematologic/Lymphatic: Hematologic/Lymphatic: Reports no additional hematologic/lymphatic complaints and Reports as per HPI Allergic/Immunologic: Allergic/Immunologic: Reports no additional allergic/immunologic complaints and Reports as per HPI PMF Past Medical History Medical History (Updated 07/21/23 @ 09:15 by Reno Hemphill MD) Bacteremia Tobacco abuse Epidural abscess IV drug user Essential hypertension Family History Family History (Updated 07/21/23 @ 09:14 by Reno Hemphill MD) Father Heart disease Family history: reviewed and not pertinent Social History Social History Household Members: None Housing: Other Unable to assess alcohol history related to: Unknown Comment: refuses alarm Patient Tobacco Use Status: Never used Tobacco Smoked in Last 30 Days: No e-Cigarette/Vaping Use: Never Used Patient Interested in Nicotine Replacement: No Patient Given Instructions on How to Stop Smoking: No Use of substances other than those prescribed or required for medical reasons: Yes Substance Use Type: Heroin Substance Use Frequency: Occasionally Last Used Substance: Days (ago) Last Used Substance Other:: three days prior to admission Currently Displaying Signs/Symptoms of Drug Intoxication Withdrawal: No Any prior treatment program specific to substance use: No Advance Directives: No Advance Directives Information Provided: No Do you have thoughts of harming others: None Do you have a plan to hurt others: No Plan Recently lost weight without trying: No Eating poorly because of decreased appetite: No Nutrition Risks: No Nutritional Risk Poor oral hygiene: No service: No Meds Allergies Allergy/AdvReac Type Severity Reaction Status Date / Time amoxicillin Allergy Diarrhea Verified 07/17/23 14:28 Active Medications: Current Medications Acetaminophen (Acetaminophen 325 Mg Tablet) 975 mg PO Q6H PRN PRN Reason: Pain, Severe (Pain Scale 7-10) Last Admin: 07/20/23 19:34 Dose: 975 mg Docusate Sodium (Docusate Sodium 100 Mg Capsule) 100 mg PO DAILY [facility] Last Admin: 07/21/23 08:54 Dose: 100 mg Heparin Sodium (Porcine) (Heparin Sodium,Porcine 5,000 Unit/Ml Vial) 5,000 unit SUBCUT Q8H [facility] Last Admin: 07/21/23 09:03 Dose: Not Given Hydromorphone HCl (Hydromorphone Hcl 1 Mg/Ml Syringe) 0.5 mg IVPUSH Q4H PRN; Protocol PRN Reason: Pain, Severe (Pain Scale 7-10) Last Admin: 07/21/23 07:26 Dose: 0.5 mg Vancomycin HCl 1,250 mg/ (Sodium Chloride) 250 mls @ 166.667 mls/hr IV Q12H [facility] Last Infusion: 07/20/23 23:42 Dose: Infused Ketorolac Tromethamine (Ketorolac Tromethamine 15 Mg/Ml Vial) 15 mg IVPUSH Q6H PRN PRN Reason: Pain, Moderate(Pain Scale 4-6) Last Admin: 07/21/23 04:14 Dose: 15 mg Lisinopril (Lisinopril 20 Mg Tablet) 20 mg PO DAILY [facility]; Protocol Last Admin: 07/21/23 08:53 Dose: 20 mg Lorazepam (Lorazepam 1 Mg Tablet) 1 mg PO TID PRN PRN Reason: Anxiety Last Admin: 07/20/23 19:32 Dose: 1 mg Methadone HCl (Methadone Hcl 20 Mg/2 Ml Oral.Conc) 45 mg PO DAILY [facility] Last Admin: 07/21/23 08:55 Dose: 45 mg Multivitamins/Vitamin C (Multivitamin Tablet) 1 tab PO DAILY [facility] Last Admin: 07/21/23 08:54 Dose: 1 tab Nicotine (Nicotine 14 Mg Patch.Td24) 14 mg TRANSDERMA DAILY [facility] Last Admin: 07/21/23 09:02 Dose: 14 mg Nicotine Polacrilex (Nicotine Polacrilex 2 Mg Gum) 2 mg BUCCAL Q2H PRN PRN Reason: Nicotine Cravings Last Admin: 07/20/23 10:52 Dose: 2 mg Ondansetron HCl (Ondansetron Hcl 4 Mg/2 Ml Vial) 4 mg IVPUSH Q6H PRN PRN Reason: Nausea and Vomiting Last Admin: 07/21/23 07:30 Dose: 4 mg Pharmacy Consult (Consult Rx Vancomycin Dosing) 1 each MISCELLANE DAILY PRN PRN Reason: Consult order Polyethylene Glycol (Polyethylene Glycol 3350 17 Gm Powd.Pack) 17 gm PO DAILY PRN PRN Reason: Constipation Sodium Chloride (0.9 % Sodium Chloride Flush 3 Ml Syringe) 3 ml IVFLUSH QSHIFT [facility] Last Admin: 07/21/23 09:00 Dose: 3 ml Trazodone HCl (Trazodone Hcl 100 Mg Tablet) 100 mg PO BEDTIME [facility] Last Admin: 07/20/23 22:07 Dose: 100 mg Home Medications Medication Instructions Recorded Confirmed Last Taken Type cholecalciferol (vitamin D3) 25 25 mcg PO DAILY 07/18/23 07/18/23 07/16/23 History mcg (1,000 unit) capsule (Vitamin D3) latanoprost 0.005 % eye drops 1 drp ophthalmic (eye) BEDTIME 07/18/23 07/18/23 07/16/23 History lisinopril 40 mg tablet 40 mg PO DAILY 07/18/23 07/18/23 07/16/23 History methadone 10 mg/mL oral 45 mg PO DAILY 07/18/23 07/18/23 07/17/23 History concentrate (Methadone Intensol) multivitamin 1 tab PO DAILY 07/18/23 07/18/23 07/16/23 History tadalafil 10 mg tablet 10 mg PO DAILY PRN Erectile 07/18/23 07/18/23 07/16/23 History Dysfunction testosterone 50 mg/5 gram (1 %) 1 packet topical DAILY 07/18/23 07/18/23 07/16/23 History transdermal gel trazodone 50 mg tablet 100 mg PO BEDTIME 07/18/23 07/18/23 07/16/23 History Physical Exam 2 Vital Signs: Vital Signs: Last Vital Signs Temp 97.6 F 07/21/23 07:15 Pulse 52 07/21/23 07:15 Resp 20 07/21/23 07:15 BP 165/92 H 07/21/23 07:15 Pulse Ox 97 07/21/23 07:15 O2 Del Method Room Air 07/21/23 07:15 BMI result Body Mass Index 30.8 Const: General: comfortable and no acute distress O rientation/consciousness: patient oriented x3 HEENT: Other: Unremarkable Head: Yes normal to inspection Neck: Neck: Yes normal visual inspection Chest: Chest palpation & inspection: normal inspection of the chest Resp: Auscultation: clear to auscultation bilaterally Cardio: Palpation: normal PMI Heart sounds: S1 normal heart sound present, S2 normal heart sound present, no gallops, Murmur heart sound present systolic at the left sternal border and no rubs GI: Palpation (GI): Soft to palpation Back/Spine/Pelvis: Other: unremarkable Skin: General skin exam: no rashes or lesions noted Neuro: General: patient oriented x3 Extrem: General: Yes normal to inspection Psych: Mental Status: mental status grossly normal Objective Labs and Meds 07/19/23 06:27 07/21/23 06:01 Lab results: Laboratory Results - last 24 hr 07/20/23 07/21/23 09:37 06:01 Hold Purple Top SEE NOTE Sodium 140 Potassium 3.6 Chloride 109 H Carbon Dioxide 24 Anion Gap 11 L BUN 22 H Creatinine 0.80 Estim Creat Clear Calc 100.3 Estimated GFR > 60 Random Glucose 102 Calcium 8.7 Random Vancomycin 13.6 L ECG Interpretation: EKG with sinus bradycardia at 41/Min; no significant ST-T changes and otherwise unremarkable. Normal MO and corrected QT. Assessment and Plan (1) Endocarditis of tricuspid valve: Status: Acute Plan Blood culture from 07/17 reported as Staphylococcus species/preliminary. Blood culture from 07/18 reported as no growth after 24 hours. Gram stain from 07/19 reported as GPC + In the echo report, there is evidence of tricuspid valve endocarditis with dilated right side chambers which also indicates chronicity. However, there is no evidence of severe TR. In fact no more than [id number] tricuspid regurgitation. Left side function seems preserved. Also difficult to say how much of this is chronic as he has a history of prior endocarditis and hence dilatation chambers could rather indicate chronicity as well. Could also be acute on chronic vs subacute. Clinically, he does not have any evidence of right heart dysfunction or decompensation. Sinus bradycardia is due to methadone. At this time recommendation is to continue the IV antibiotics. No absolute indication for WILMER or any further invasive procedures or cardiac surgery evaluation at this time. I discussed about this at length with patient and he does not want in fact anything invasive. Procedures Date of Service Date of Service: 07/21/23
[2023-07-21] MEDS: vancomycin HCL 1,250 MG in 0.9 % Sodium Chloride 250 ML 166.77 MG IV (10:48)
[2023-07-21 11:35] VITALS: BP 174/90; PULSE 43; RESP 20; TEMP 36.4; O2SAT 97
--- NOTE | 2023-07-21 12:02 | HO.PM.IMPN ---
Subjective Subjective Date of Service: 07/21/23 Interval History: Good pain control right flank with IV Toradol, offers no acute complaints of fever, no chills, no headache, no dizziness, complaining of mild nausea at a.m., no abdominal pain, no diarrhea, no acute events overnight. Review of Systems All other system reviewed and negative. Physical Exam Vital Signs: Vital Signs: Last Vital Signs Temp 97.6 F 07/21/23 11:35 Pulse 43 L 07/21/23 11:35 Resp 20 07/21/23 11:35 BP 174/90 H 07/21/23 11:35 Pulse Ox 97 07/21/23 11:35 O2 Del Method Room Air 07/21/23 11:35 BMI result Body Mass Index 30.8 Const: Other: General awake alert x3, appears uncomfortable due to nausea, in no acute distress. Neck supple, no JVD. CVS regular rate rhythm, Respiratory lungs clear to auscultation, no respiratory distress, no wheeze, no rhonchi. Gastrointestinal abdomen soft, non tender, bowel sounds audible, no guarding , no rigidity. Right flank tenderness to palpation, no redness, no swelling Extremities no edema. Neuro non focal Skin no skin lesions Psych appropriate affect Objective Data Active Medications Acetaminophen (Acetaminophen 325 Mg Tablet) 975 mg PO Q6H PRN PRN Reason: Pain, Severe (Pain Scale 7-10) Last Admin: 07/20/23 19:34 Dose: 975 mg Documented By: CLARISA Docusate Sodium (Docusate Sodium 100 Mg Capsule) 100 mg PO DAILY [facility] Last Admin: 07/21/23 08:54 Dose: 100 mg Documented By: FELICIANO Heparin Sodium (Porcine) (Heparin Sodium,Porcine 5,000 Unit/Ml Vial) 5,000 unit SUBCUT Q8H [facility] Last Admin: 07/21/23 09:03 Dose: Not Given Documented By: FELICIANO Non-Admin Reason: Patient Refused Hydromorphone HCl (Hydromorphone Hcl 1 Mg/Ml Syringe) 0.5 mg IVPUSH Q4H PRN; Protocol PRN Reason: Pain, Severe (Pain Scale 7-10) Last Admin: 07/21/23 07:26 Dose: 0.5 mg Documented By: FELICIANO Vancomycin HCl 1,250 mg/ (Sodium Chloride) 250 mls @ 166.667 mls/hr IV Q12H [facility] Last Admin: 07/21/23 10:48 Dose: 166.77 mls/hr Documented By: FELICIANO Ketorolac Tromethamine (Ketorolac Tromethamine 15 Mg/Ml Vial) 15 mg IVPUSH Q8H PRN PRN Reason: Pain, Moderate(Pain Scale 4-6) Lisinopril (Lisinopril 20 Mg Tablet) 20 mg PO DAILY [facility]; Protocol Last Admin: 07/21/23 08:53 Dose: 20 mg Documented By: FELICIANO Lorazepam (Lorazepam 1 Mg Tablet) 1 mg PO TID PRN PRN Reason: Anxiety Last Admin: 07/20/23 19:32 Dose: 1 mg Documented By: CLARISA Methadone HCl (Methadone Hcl 20 Mg/2 Ml Oral.Conc) 45 mg PO DAILY [facility] Last Admin: 07/21/23 08:55 Dose: 45 mg Documented By: FELICIANO Multivitamins/Vitamin C (Multivitamin Tablet) 1 tab PO DAILY [facility] Last Admin: 07/21/23 08:54 Dose: 1 tab Documented By: FELICIANO Nicotine (Nicotine 14 Mg Patch.Td24) 14 mg TRANSDERMA DAILY [facility] Last Admin: 07/21/23 09:02 Dose: 14 mg Documented By: FELICIANO Nicotine Polacrilex (Nicotine Polacrilex 2 Mg Gum) 2 mg BUCCAL Q2H PRN PRN Reason: Nicotine Cravings Last Admin: 07/20/23 10:52 Dose: 2 mg Documented By: FELICIANO Ondansetron HCl (Ondansetron Hcl 4 Mg/2 Ml Vial) 4 mg IVPUSH Q6H PRN PRN Reason: Nausea and Vomiting Last Admin: 07/21/23 07:30 Dose: 4 mg Documented By: FELICIANO Pharmacy Consult (Consult Rx Vancomycin Dosing) 1 each MISCELLANE DAILY PRN PRN Reason: Consult order Polyethylene Glycol (Polyethylene Glycol 3350 17 Gm Powd.Pack) 17 gm PO DAILY PRN PRN Reason: Constipation Sodium Chloride (0.9 % Sodium Chloride Flush 3 Ml Syringe) 3 ml IVFLUSH QSHIFT [facility] Last Admin: 07/21/23 09:00 Dose: 3 ml Documented By: FELICIANO Trazodone HCl (Trazodone Hcl 100 Mg Tablet) 100 mg PO BEDTIME [facility] Last Admin: 07/20/23 22:07 Dose: 100 mg Documented By: CLARISA Labs 07/19/23 06:27 07/21/23 06:01 Labs: Laboratory Results - last 24 hr 07/21/23 06:01 Hold Purple Top SEE NOTE Anion Gap 11 L Estim Creat Clear Calc 100.3 Estimated GFR > 60 Random Glucose 102 Calcium 8.7 Microbiology Microbiology Results: Microbiology 07/19/23 09:22 Blood Culture - Preliminary Blood - Venous Staphylococcus species 07/19/23 09:22 Blood Culture - Preliminary Blood - Venous No growth after 48 hours. Assessment and Plan (1) Bacteremia: Status: Acute (2) Pulmonary abscess: Status: Acute Plan This is a 57 year old male with history IVDU, HTN, h/o epidural abscess who presents with right side pain found to have cavitary lung lesion. Cavitary right lower lobe nodule (1.5 cm) probable lung abscess on IV vancomycin started on 07/18 , WBC normal, no fevers seen by pulmonary- they recommended 28 days of therapy and follow up chest CT after as well as outpatient pulmonary followup but since patient has endocarditis duration of antibiotic Will be discussed with ID right lower chest discomfort well control on low dose IV Dilaudid and on IV Toradol, will continue to wean iv analgesics. Nausea likely due to narcotics, improving continue IV Zofran Staphylococcus bacteremia 07/17 Blood cultures 06/26 growing staph species, sensitivities remains pending , repeat blood culture on 07/19, 05/26 positive for Staphylococcus species on IV vanco D3 echo showed vegetations on tricuspid valve with mild to moderate tricuspid regurgitation EF 60% no evidence of regional wall motion abnormality, normal diastolic function, normal right ventricular systolic function Seen by Dr. Hemphill from Cardiology he recommend to continue current antibiotics since no evidence of severe TR, no right dysfunction or decompensation HIV negative, HCV Ab +, viral load pending bradycardia likely sinus due to methadone, EKG showed sinus Ozzie no other acute ischemic changes Patient asymptomatic, follow clinical course Essential hypertension Elevated blood pressure will change lisinopril to 40 mg home dose IVDU Continue methadone 45 mg Being followed by Addiction Medicine outpatient community resources provided. Tobacco smoking Tobacco cessation education, continue NRT DVT prophylaxis: Heparin subcut Code status: Full Requires ongoing inpatient stay for endocarditis, bacteremia ,cavitary lung nodule requiring treatment with IV antibiotics and needs follow-up on blood cultures Quality Stroke Does the patient have a stroke diagnosis?: No VTE Prior VTE?: No VTE Risk Level:: Medical - moderate - high VTE Device Contraindication: Treatment Not Indicated VTE Drug Contraindication: N/A - Med Ordered
[2023-07-21 15:29] LABS: HCV Log PCR <1.18 NOT DETECTED Log IU/mL (NOT DETECTED); HepC Viral Load <15 NOT DETECTED IU/mL (NOT DETECTED)
[2023-07-21] MEDS: Enoxaparin Sodium 40 MG/0.4 ML SYRINGE SUBCUT (15:31)
[2023-07-21 15:35] VITALS: BP 158/80; PULSE 45; RESP 20; TEMP 36.4; O2SAT 97
--- NOTE | 2023-07-21 16:33 | P.PNPL_ITS ---
Subjective Subjective Date of Service: 07/21/23 Principal diagnosis: Staphylococcal bacteremia and pulmonary abscess Interval history: Respiratory status essentially at baseline. Still with episodes of bradycardia. Objective Data Labs 07/19/23 06:27 07/21/23 06:01 Labs: Laboratory Results - last 24 hr 07/20/23 07/21/23 05:45 06:01 Hold Purple Top SEE NOTE Sodium 140 Potassium 3.6 Chloride 109 H Carbon Dioxide 24 Anion Gap 11 L BUN 22 H Creatinine 0.80 Estim Creat Clear Calc 100.3 Estimated GFR > 60 Random Glucose 102 Calcium 8.7 Hep C Viral Load <15 NOT DETECTED Hep C Viral Load Log <1.18 NOT DETECTED Microbiology Microbiology Results: Microbiology 07/17/23 20:31 Blood - Venous Blood Culture - Preliminary Staphylococcus species Streptococcus species 07/17/23 20:31 Blood - Venous Blood Culture - Preliminary Staphylococcus lugdunensis Streptococcus species 07/19/23 09:22 Blood - Venous Blood Culture - Preliminary Staphylococcus species 07/19/23 09:22 Blood - Venous Blood Culture - Preliminary No growth after 48 hours. Physical Exam 2 Vital Signs: Vital Signs: Last Vital Signs Temp 97.6 F 07/21/23 15:35 Pulse 45 L 07/21/23 15:35 Resp 20 07/21/23 15:35 BP 158/80 H 07/21/23 15:35 Pulse Ox 97 07/21/23 15:35 O2 Del Method Room Air 07/21/23 15:35 BMI result Body Mass Index 30.8 Const: General: no acute distress, alert and awake Eyes: Sclerae: sclerae normal EOM: EOMs intact bilaterally Neck: Neck: Yes no lymphadenopathy, Yes trachea midline and Yes supple Resp: Effort & Inspection: normal respiratory effort and no respiratory distress Auscultation: clear to auscultation bilaterally Cardio: Rate: regular rate Rhythm: regular rhythm Heart sounds: no gallops, no murmurs and no rubs GI: Palpation (GI): Soft to palpation and Other GI palpation findings present ( Nontender) Auscultation: normal bowel sounds Extrem: General: Yes no pedal edema, No clubbing and No cyanosis Procedures Date of Service Date of Service: 07/21/23 Assessment and Plan Assessment and plan (1) Bacteremia due to Staphylococcus: Status: Acute (2) Emphysema lung: Status: Acute (3) Pulmonary abscess: Status: Acute Plan Impression: 57-year-old gentleman with staphylococcal bacteremia and pulmonary abscess, now also with tricuspid vegetation and bradycardia. Recommendations: If no cardiology concern for involvement of conduction system and repeat blood cultures negative, consider switching to p.o. anti MRSA based regimen. Follow-up in pulmonary office after CT scan in 1 month. Time Spent With Patient Time: Total time managing care of this patient today ____ minutes. Progress Note: Quality Stroke Does the patient have a stroke diagnosis?: No
[2023-07-21] MEDS: Latanoprost 0.005 % Ophth Sol 2.5 ML DROPS 1 DROP EYE-BOTH (19:28)
[2023-07-21 19:30] VITALS: BP 132/68; PULSE 47; RESP 18; TEMP 36.2; O2SAT 97
[2023-07-21] MEDS: vancomycin HCL 1,250 MG in 0.9 % Sodium Chloride 250 ML 166.67 MG IV (22:00)
[2023-07-21] MEDS: traZODone HCL 100 MG TABLET PO (23:33)
[2023-07-22 04:00] VITALS: BP 132/82; PULSE 50; RESP 18; TEMP 36.6; O2SAT 95
--- NOTE | 2023-07-22 05:39 | PC.NURSE ---
Pt refused morning labs. Dr. Oseguera aware.
[2023-07-22 07:14] VITALS: BP 142/82; PULSE 46; RESP 18; TEMP 36.8; O2SAT 97
[2023-07-22] MEDS: Nicotine 14 MG PATCH.TD24 TRANSDERMA (07:29)
[2023-07-22] MEDS: 0.9 % Sodium Chloride Flush 3 ML SYRINGE IVFLUSH ×3 (07:30→20:17)
[2023-07-22] MEDS: Ketorolac Tromethamine 15 MG/ML VIAL IVPUSH ×3 (07:30→23:39)
[2023-07-22 07:58] LABS: Creatinine Clr Calc Pharmacy 90.1; Estimated Glomerular Filt Rate > 60
[2023-07-22] MEDS: lisinopriL 20 MG TABLET PO (08:03)
[2023-07-22] MEDS: methADONE HCl 20 MG/2 ML ORAL.CONC 45 MG PO (08:04)
[2023-07-22] MEDS: Docusate Sodium 100 MG CAPSULE PO (08:04)
[2023-07-22] MEDS: Multivitamin TABLET 1 TAB PO (08:04)
--- NOTE | 2023-07-22 09:47 | HO.PM.IMPN ---
Subjective Subjective Date of Service: 07/22/23 Interval History: Offers no acute complaints, on cardiac diet requesting for regular diet , denies fever, no chills, no complain of pain this morning, no bowel movement in 2 days, no abdominal pain continued to have mild nausea at a.m., no acute events overnight. Review of Systems All other system reviewed and negative. Physical Exam Vital Signs: Vital Signs: Last Vital Signs Temp 98.2 F 07/22/23 07:14 Pulse 46 L 07/22/23 07:14 Resp 18 07/22/23 07:14 BP 142/82 H 07/22/23 07:14 Pulse Ox 97 07/22/23 07:14 O2 Del Method Room Air 07/22/23 07:14 BMI result Body Mass Index 30.8 Const: Other: General awake alert x3, appears uncomfortable due to nausea, in no acute distress. Neck supple, no JVD. CVS regular rate rhythm, Respiratory lungs clear to auscultation, no respiratory distress, no wheeze, no rhonchi. Gastrointestinal abdomen soft, non tender, bowel sounds audible, no guarding , no rigidity. Extremities no edema. Neuro non focal Skin no skin lesions Psych appropriate affect Objective Data Active Medications Acetaminophen (Acetaminophen 325 Mg Tablet) 975 mg PO Q6H PRN PRN Reason: Pain, Severe (Pain Scale 7-10) Last Admin: 07/20/23 19:34 Dose: 975 mg Documented By: CLARISA Docusate Sodium (Docusate Sodium 100 Mg Capsule) 100 mg PO DAILY [facility] Last Admin: 07/22/23 08:04 Dose: 100 mg Documented By: MARY KAY Enoxaparin Sodium (Enoxaparin Sodium 40 Mg/0.4 Ml Syringe) 40 mg SUBCUT Q24H [facility] Last Admin: 07/21/23 15:31 Dose: 40 mg Documented By: FELICIANO Vancomycin HCl 1,250 mg/ (Sodium Chloride) 250 mls @ 166.667 mls/hr IV Q12H [facility] Last Infusion: 07/21/23 23:35 Dose: Infused Documented By: CLARISA Ketorolac Tromethamine (Ketorolac Tromethamine 15 Mg/Ml Vial) 15 mg IVPUSH Q8H PRN PRN Reason: Pain, Moderate(Pain Scale 4-6) Last Admin: 07/22/23 07:30 Dose: 15 mg Documented By: HENNY Latanoprost (Latanoprost 0.005 % Ophth Daniella 2.5 Ml Drops) 1 drop EYE-BOTH BEDTIME [facility] Last Admin: 07/21/23 19:28 Dose: 1 drop Documented By: CLARISA Lisinopril (Lisinopril 20 Mg Tablet) 20 mg PO DAILY [facility]; Protocol Last Admin: 07/22/23 08:03 Dose: 20 mg Documented By: MARY KAY Lorazepam (Lorazepam 1 Mg Tablet) 1 mg PO TID PRN PRN Reason: Anxiety Last Admin: 07/20/23 19:32 Dose: 1 mg Documented By: CLARISA Methadone HCl (Methadone Hcl 20 Mg/2 Ml Oral.Conc) 45 mg PO DAILY [facility] Last Admin: 07/22/23 08:04 Dose: 45 mg Documented By: MARY KAY Multivitamins/Vitamin C (Multivitamin Tablet) 1 tab PO DAILY [facility] Last Admin: 07/22/23 08:04 Dose: 1 tab Documented By: MARY KAY Nicotine (Nicotine 14 Mg Patch.Td24) 14 mg TRANSDERMA DAILY [facility] Last Admin: 07/22/23 07:29 Dose: 14 mg Documented By: MARY KAY Nicotine Polacrilex (Nicotine Polacrilex 2 Mg Gum) 2 mg BUCCAL Q2H PRN PRN Reason: Nicotine Cravings Last Admin: 07/20/23 10:52 Dose: 2 mg Documented By: FELICIANO Ondansetron HCl (Ondansetron Hcl 4 Mg/2 Ml Vial) 4 mg IVPUSH Q6H PRN PRN Reason: Nausea and Vomiting Last Admin: 07/21/23 07:30 Dose: 4 mg Documented By: FELICIANO Oxycodone HCl (Oxycodone Hcl Immed Release 5 Mg Tablet) 10 mg PO Q6H PRN PRN Reason: Pain, Severe (Pain Scale 7-10) Pharmacy Consult (Consult Rx Vancomycin Dosing) 1 each MISCELLANE DAILY PRN PRN Reason: Consult order Polyethylene Glycol (Polyethylene Glycol 3350 17 Gm Powd.Pack) 17 gm PO DAILY PRN PRN Reason: Constipation Sodium Chloride (0.9 % Sodium Chloride Flush 3 Ml Syringe) 3 ml IVFLUSH QSHIFT [facility] Last Admin: 07/22/23 07:30 Dose: 3 ml Documented By: HENNY Trazodone HCl (Trazodone Hcl 100 Mg Tablet) 100 mg PO BEDTIME [facility] Last Admin: 07/21/23 23:33 Dose: 100 mg Documented By: ERROLQC Labs 07/19/23 06:27 07/22/23 07:14 Labs: Laboratory Results - last 24 hr 07/20/23 07/22/23 05:45 07:14 Hold Purple Top SEE NOTE Estim Creat Clear Calc 90.1 Estimated GFR > 60 Hep C Viral Load <15 NOT DETECTED Hep C Viral Load Log <1.18 NOT DETECTED Microbiology Microbiology Results: Microbiology 07/19/23 09:22 Blood Culture - Final Blood - Venous Staphylococcus lugdunensis 07/17/23 20:31 Blood Culture - Preliminary Blood - Venous Staphylococcus species Streptococcus species 07/17/23 20:31 Blood Culture - Preliminary Blood - Venous Staphylococcus lugdunensis Streptococcus species 07/19/23 09:22 Blood Culture - Preliminary Blood - Venous No growth after 48 hours. Assessment and Plan (1) Bacteremia: Status: Acute (2) Pulmonary abscess: Status: Acute Plan This is a 57 year old male with history IVDU, HTN, h/o epidural abscess who presents with right side pain found to have cavitary lung lesion. Cavitary right lower lobe nodule (1.5 cm) probable lung abscess on IV vancomycin started on 07/18 , WBC normal, no fevers right lower chest discomfort well control on low dose IV Dilaudid and on IV Toradol, will dc IV Dilaudid and place on oxycodone. Nausea likely due to narcotics, improving continue IV Zofran Will need close outpatient follow-up with repeat CT chest. Staphylococcus bacteremia 07/17 Blood cultures 06/26 growing staph lugdunensis species, and Streptococcus species sensitive to vanco, repeat blood culture on 07/19, 1/2 positive for Staphylococcus lugdunensis on IV vanco D4 echo showed vegetations on tricuspid valve with mild to moderate tricuspid regurgitation EF 60% no evidence of regional wall motion abnormality, normal diastolic function, normal right ventricular systolic function Case discussed with Dr. Hemphill he recommend to continue current antibiotics since no evidence of severe TR, no right dysfunction or decompensation HIV negative, HCV Ab +, viral load pending Will repeat blood cultures x2 today, will need 4-6 weeks of IV antibiotics. Sinus bradycardia likely due to methadone, EKG showed sinus Ozzie, no other acute ischemic changes Patient asymptomatic, follow clinical course. Essential hypertension blood pressure better control on lisinopril to 40 mg home dose IVDU Continue methadone 45 mg Being followed by Addiction Medicine outpatient community resources provided. Tobacco smoking Tobacco cessation education, continue NRT DVT prophylaxis: Heparin subcut Code status: Full Requires ongoing inpatient stay for endocarditis, bacteremia ,cavitary lung nodule requiring treatment with IV antibiotics and needs follow-up on blood cultures Quality Stroke Does the patient have a stroke diagnosis?: No VTE Prior VTE?: No VTE Risk Level:: Medical - moderate - high VTE Device Contraindication: Treatment Not Indicated VTE Drug Contraindication: N/A - Med Ordered
[2023-07-22] MEDS: Acetaminophen 325 MG TABLET 975 MG PO (09:48)
[2023-07-22] MEDS: oxyCODONE HCl Immed Release 5 MG TABLET 10 MG PO ×3 (09:48→20:14)
[2023-07-22] MEDS: vancomycin HCL 1,250 MG in 0.9 % Sodium Chloride 250 ML 166.67 MG IV ×2 (10:33→22:41)
[2023-07-22 11:06] VITALS: BP 152/84; PULSE 49; RESP 18; TEMP 36.2; O2SAT 95
[2023-07-22] MEDS: LORazepam 1 MG TABLET PO ×3 (14:27→22:36)
[2023-07-22] MEDS: Enoxaparin Sodium 40 MG/0.4 ML SYRINGE SUBCUT (14:28)
[2023-07-22 15:40] VITALS: BP 150/86; PULSE 52; RESP 18; TEMP 36.8; O2SAT 97
--- NOTE | 2023-07-22 15:46 | MHC.CM.PN ---
per rounds pt not medically ready for dc
[2023-07-22] MEDS: polyethylene glycoL 3350 17 GM POWD.PACK PO (16:42)
[2023-07-22 20:00] VITALS: BP 142/64; PULSE 47; RESP 18; TEMP 36.4; O2SAT 97
[2023-07-22 21:41] LABS: Vancomycin Random 15.5 mcg/mL (15-20)
[2023-07-22] MEDS: traZODone HCL 100 MG TABLET PO (22:36)
[2023-07-22] MEDS: Latanoprost 0.005 % Ophth Sol 2.5 ML DROPS 1 DROP EYE-BOTH (22:37)
[2023-07-22] MEDS: traMADoL HCL 50 MG TABLET 25 MG PO (23:05)
[2023-07-23 03:33] VITALS: RESP 18
[2023-07-23 06:20] LABS: Estimated Glomerular Filt Rate > 60
[2023-07-23 07:52] LABS: Creatinine Clr Calc Pharmacy 95.5
[2023-07-23 08:00] VITALS: BP 148/100; PULSE 51; RESP 18; TEMP 36.6; O2SAT 96
[2023-07-23] MEDS: 0.9 % Sodium Chloride Flush 3 ML SYRINGE IVFLUSH ×2 (08:39→16:25)
[2023-07-23] MEDS: Ketorolac Tromethamine 15 MG/ML VIAL IVPUSH (08:41)
[2023-07-23] MEDS: lisinopriL 40 MG TABLET PO (08:44)
[2023-07-23] MEDS: Nicotine 14 MG PATCH.TD24 TRANSDERMA (08:44)
[2023-07-23] MEDS: Docusate Sodium 100 MG CAPSULE PO (08:45)
[2023-07-23] MEDS: Multivitamin TABLET 1 TAB PO (08:45)
[2023-07-23] MEDS: methADONE HCl 20 MG/2 ML ORAL.CONC 45 MG PO (09:33)
--- NOTE | 2023-07-23 10:29 | HO.PM.IMPN ---
Subjective Subjective Date of Service: 07/23/23 Interval History: Complaining of pain right mid back, requesting for more frequent pain medications currently on oxycodone 10 mg q.6 hours and Toradol Q 8 hours, no fevers, no chills, tolerating diet no nausea no vomiting, no abdominal pain or diarrhea, no acute events overnight. Review of Systems All other system reviewed and negative. Physical Exam Vital Signs: Vital Signs: Last Vital Signs Temp 97.8 F 07/23/23 08:00 Pulse 51 07/23/23 08:00 Resp 18 07/23/23 08:00 BP 148/100 H 07/23/23 08:00 Pulse Ox 96 07/23/23 08:00 O2 Del Method Room Air 07/23/23 08:00 BMI result Body Mass Index 30.8 Const: Other: General awake alert x3, in no acute distress. Neck supple, no JVD. CVS regular rate rhythm, Respiratory lungs clear to auscultation, no respiratory distress, no wheeze, no rhonchi. Gastrointestinal abdomen soft, non tender, bowel sounds audible, no guarding , no rigidity. Extremities no edema. Neuro non focal Skin no skin lesions Psych appropriate affect Objective Data Active Medications Docusate Sodium (Docusate Sodium 100 Mg Capsule) 100 mg PO DAILY [facility] Last Admin: 07/23/23 08:45 Dose: 100 mg Documented By: ARETHA Enoxaparin Sodium (Enoxaparin Sodium 40 Mg/0.4 Ml Syringe) 40 mg SUBCUT Q24H [facility] Last Admin: 07/22/23 14:28 Dose: 40 mg Documented By: HENNY Vancomycin HCl 1,250 mg/ (Sodium Chloride) 250 mls @ 166.667 mls/hr IV Q12H [facility] Last Infusion: 07/23/23 00:15 Dose: Infused Documented By: SINDY Ketorolac Tromethamine (Ketorolac Tromethamine 15 Mg/Ml Vial) 15 mg IVPUSH Q8H PRN PRN Reason: Pain, Moderate(Pain Scale 4-6) Last Admin: 07/23/23 08:41 Dose: 15 mg Documented By: ARETHA Latanoprost (Latanoprost 0.005 % Ophth Daniella 2.5 Ml Drops) 1 drop EYE-BOTH BEDTIME [facility] Last Admin: 07/22/23 22:37 Dose: 1 drop Documented By: SINDY Lisinopril (Lisinopril 40 Mg Tablet) 40 mg PO DAILY [facility]; Protocol Last Admin: 07/23/23 08:44 Dose: 40 mg Documented By: ARETHA Lorazepam (Lorazepam 1 Mg Tablet) 1 mg PO TID PRN PRN Reason: Anxiety Last Admin: 07/22/23 20:17 Dose: 1 mg Documented By: SINDY Methadone HCl (Methadone Hcl 20 Mg/2 Ml Oral.Conc) 45 mg PO DAILY [facility] Last Admin: 07/23/23 09:33 Dose: 45 mg Documented By: ARETHA Multivitamins/Vitamin C (Multivitamin Tablet) 1 tab PO DAILY [facility] Last Admin: 07/23/23 08:45 Dose: 1 tab Documented By: ARETHA Nicotine (Nicotine 14 Mg Patch.Td24) 14 mg TRANSDERMA DAILY [facility] Last Admin: 07/23/23 08:44 Dose: 14 mg Documented By: ARETHA Nicotine Polacrilex (Nicotine Polacrilex 2 Mg Gum) 2 mg BUCCAL Q2H PRN PRN Reason: Nicotine Cravings Last Admin: 07/20/23 10:52 Dose: 2 mg Documented By: FELICIANO Ondansetron HCl (Ondansetron Hcl 4 Mg/2 Ml Vial) 4 mg IVPUSH Q6H PRN PRN Reason: Nausea and Vomiting Last Admin: 07/21/23 07:30 Dose: 4 mg Documented By: FELICIANO Oxycodone HCl (Oxycodone Hcl Immed Release 5 Mg Tablet) 10 mg PO Q6H PRN PRN Reason: Pain, Severe (Pain Scale 7-10) Last Admin: 07/22/23 20:14 Dose: 10 mg Documented By: SINDY Pharmacy Consult (Consult Rx Vancomycin Dosing) 1 each MISCELLANE DAILY PRN PRN Reason: Consult order Polyethylene Glycol (Polyethylene Glycol 3350 17 Gm Powd.Pack) 17 gm PO DAILY PRN PRN Reason: Constipation Last Admin: 07/22/23 16:42 Dose: 17 gm Documented By: MICHAEL Sodium Chloride (0.9 % Sodium Chloride Flush 3 Ml [facility]) [facility] Admin: 07/23/23 08:39 Dose: 3 ml Documented By: ARETHA Trazodone HCl (Trazodone Hcl 100 Mg Tablet) 100 mg PO BEDTIME [facility] Last Admin: 07/22/23 22:36 Dose: 100 mg Documented By: SINDY Labs 07/19/23 06:27 07/23/23 05:45 Labs: Laboratory Results - last 24 hr 07/22/23 07/23/23 21:03 05:45 Hold Purple Top SEE NOTE Estim Creat Clear Calc 95.5 Estimated GFR > 60 Random Vancomycin 15.5 Microbiology Microbiology Results: Microbiology 07/22/23 07:56 Blood Culture - Preliminary Blood - Venous No growth after 24 hours. 07/17/23 20:31 Blood Culture - Preliminary Blood - Venous Staphylococcus lugdunensis Streptococcus species 07/17/23 20:31 Blood Culture - Preliminary Blood - Venous Staphylococcus lugdunensis Streptococcus species 07/19/23 09:22 Blood Culture - Final Blood - Venous Staphylococcus lugdunensis Assessment and Plan (1) Bacteremia: Status: Acute (2) Pulmonary abscess: Status: Acute Plan 57 year old male with history IVDU, HTN, h/o epidural abscess who presents with right side pain found to have cavitary lung lesion. 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 Staphylococcus bacteremia 07/17 Blood cultures 06/26 growing staph lugdunensis species, and Streptococcus species sensitive to vanco, repeat blood culture on 07/19, 1 positive for Staphylococcus lugdunensis Repeat blood cultures 07/22 pending on IV vanco D5 echo showed vegetations on tricuspid valve with mild to moderate tricuspid regurgitation EF 60% no evidence of regional wall motion abnormality, normal diastolic function, normal right ventricular systolic function Case discussed with Dr. Hemphill he recommend to continue current antibiotics since no evidence of severe TR, no right dysfunction or decompensation HIV negative, HCV Ab +, viral load pending Will discuss duration and choice of antibiotics with ID and pulmonology. Patient is willing to come daily to hospital to receive IV antibiotics, notified child support case officer. Sinus bradycardia Seen by cardiology bradycardia likely due to methadone, EKG showed sinus Ozzie, no other acute ischemic changes, follow clinical course Essential hypertension Elevated blood pressure increased dose of lisinopril to 40 mg IVDU Continue methadone 45 mg Being followed by Addiction Medicine outpatient community resources provided. Tobacco smoking Tobacco cessation education, continue NRT DVT prophylaxis: lovenox subcut Code status: Full Requires ongoing inpatient stay for endocarditis, bacteremia ,cavitary lung nodule requiring treatment with IV antibiotics and needs follow-up on blood cultures Quality Stroke Does the patient have a stroke diagnosis?: No VTE Prior VTE?: No VTE Risk Level:: Medical - moderate - high VTE Device Contraindication: Treatment Not Indicated VTE Drug Contraindication: N/A - Med Ordered
[2023-07-23 11:30] VITALS: BP 160/92; PULSE 57; RESP 18; TEMP 36.4; O2SAT 97
[2023-07-23] MEDS: vancomycin HCL 1,250 MG in 0.9 % Sodium Chloride 250 ML 166.67 MG IV ×2 (12:01→22:15)
[2023-07-23] MEDS: Enoxaparin Sodium 40 MG/0.4 ML SYRINGE SUBCUT (12:11)
[2023-07-23 12:47] VITALS: PULSE 55
--- NOTE | 2023-07-23 13:02 | P.PNPL_ITS ---
Subjective Subjective Date of Service: 07/23/23 Principal diagnosis: Staphylococcal bacteremia and pulmonary abscess Interval history: Respiratory status at baseline Objective Data Labs 07/19/23 06:27 07/23/23 05:45 Labs: Laboratory Results - last 24 hr 07/22/23 07/23/23 21:03 05:45 Hold Purple Top SEE NOTE Creatinine 0.84 Estim Creat Clear Calc 95.5 Estimated GFR > 60 Random Vancomycin 15.5 Microbiology Microbiology Results: Microbiology 07/17/23 20:31 Blood - Venous Blood Culture - Final Staphylococcus lugdunensis Streptococcus mitis/oralis 07/17/23 20:31 Blood - Venous Blood Culture - Final Staphylococcus lugdunensis Streptococcus mitis/oralis 07/22/23 08:00 Blood - Venous Blood Culture - Preliminary No growth after 24 hours. 07/22/23 07:56 Blood - Venous Blood Culture - Preliminary No growth after 24 hours. 07/19/23 09:22 Blood - Venous Blood Culture - Final Staphylococcus lugdunensis 07/19/23 09:22 Blood - Venous Blood Culture - Preliminary No growth after 48 hours. Physical Exam 2 Vital Signs: Vital Signs: Last Vital Signs Temp 97.6 F 07/23/23 11:30 Pulse 55 07/23/23 12:47 Resp 18 07/23/23 11:30 BP 160/92 H 07/23/23 11:30 Pulse Ox 97 07/23/23 11:30 O2 Del Method Room Air 07/23/23 11:30 BMI result Body Mass Index 30.8 Const: General: no acute distress, alert and awake Eyes: Sclerae: sclerae normal EOM: EOMs intact bilaterally Neck: Neck: Yes no lymphadenopathy, Yes trachea midline and Yes supple Resp: Effort & Inspection: normal respiratory effort and no respiratory distress Auscultation: clear to auscultation bilaterally Cardio: Rate: regular rate Rhythm: regular rhythm Heart sounds: no gallops, no murmurs and no rubs GI: Palpation (GI): Soft to palpation and Other GI palpation findings present ( Nontender) Auscultation: normal bowel sounds Extrem: General: Yes no pedal edema, No clubbing and No cyanosis Procedures Date of Service Date of Service: 07/23/23 Assessment and Plan Assessment and plan (1) Endocarditis of tricuspid valve: Status: Acute (2) Bacteremia due to Staphylococcus: Status: Acute (3) Pulmonary abscess: Status: Acute Plan Impression: 57-year-old gentleman with staphylococcal bacteremia and pulmonary abscess, now also with tricuspid vegetation and bradycardia. Recommendations: Even though treatment of endocarditis it usually achieved with prolonged IV antibiotics recent results from POET study show non inferiority of an oral bacterecidal regimen in certain patients. Thus in this patient with significant possibility of utilization of outpatient IV access for drug use and if no cardiology concern exists for involvement of conduction system, and repeat blood cultures negative, would suggest switching to p.o. cephalosporin regimen after total of 7 days of IV therapy. Follow-up in pulmonary office after CT scan in 1 month. Time Spent With Patient Time: Total time managing care of this patient today ____ minutes. Progress Note: Quality Stroke Does the patient have a stroke diagnosis?: No
[2023-07-23] MEDS: oxyCODONE HCl Immed Release 5 MG TABLET 10 MG PO ×3 (13:59→22:58)
[2023-07-23] MEDS: LORazepam 1 MG TABLET PO ×2 (17:00→22:14)
[2023-07-23 19:02] VITALS: BP 158/70; PULSE 59; RESP 18; TEMP 36.8; O2SAT 97
[2023-07-23] MEDS: Acetaminophen 325 MG TABLET 650 MG PO (19:21)
[2023-07-23 21:38] LABS: Vancomycin Random 14.4 mcg/mL (15-20)
--- NOTE | 2023-07-23 21:49 | HE.PHANOTE ---
RE [facility] Patients level came back this evening at 14.4. Will continue with current dose as patient is within proper AUC 400-600. Will get another level 07/24 @2100 to ensure safety vs efficacy
[2023-07-23] MEDS: traZODone HCL 100 MG TABLET PO (22:14)
[2023-07-23] MEDS: Latanoprost 0.005 % Ophth Sol 2.5 ML DROPS 1 DROP EYE-BOTH (22:15)
[2023-07-24] MEDS: oxyCODONE HCl Immed Release 5 MG TABLET 10 MG PO ×3 (02:47→11:54)
[2023-07-24 03:14] VITALS: BP 143/78; PULSE 52; RESP 18; TEMP 36.6; O2SAT 96
[2023-07-24 06:00] LABS: Estimated Glomerular Filt Rate > 60
[2023-07-24 07:53] VITALS: BP 172/100; PULSE 65; RESP 16; TEMP 36.7; O2SAT 97
[2023-07-24] MEDS: Nicotine 14 MG PATCH.TD24 TRANSDERMA (08:35)
[2023-07-24] MEDS: Docusate Sodium 100 MG CAPSULE PO (08:36)
[2023-07-24] MEDS: methADONE HCl 20 MG/2 ML ORAL.CONC 45 MG PO (08:36)
[2023-07-24] MEDS: Multivitamin TABLET 1 TAB PO (08:36)
[2023-07-24] MEDS: lisinopriL 40 MG TABLET PO (08:36)
[2023-07-24] MEDS: 0.9 % Sodium Chloride Flush 3 ML SYRINGE IVFLUSH (08:38)
[2023-07-24 08:45] VITALS: PULSE 56
[2023-07-24] MEDS: vancomycin HCL 1,250 MG in 0.9 % Sodium Chloride 250 ML 166.67 MG IV (11:53)
--- NOTE | 2023-07-24 14:51 | PM.DS ---
DS: Providers Provider Date of Service: 07/24/23 Date of admission: 07/17/23 23:30 Date of discharge: 07/24/23 Primary care physician: Marvin Ayala DO, MD Consults: 07/18/23 01:20 Consult to Pulmonology Routine Consulting Provider[place] [facility] Reason for consultation: Right cavitary lower lobe nodule Has provider been notified: No 07/18/23 10:28 Consult to Infectious Diseases Routine Consulting Provider[place] [facility] [place] [facility] Reason for consultation: bacteremia Has provider been notified: No 07/18/23 14:04 Addiction Medicine Routine Consulting Provider: Addiction [facility]ing Reason for consultation: IVDU on methadone Has provider been notified: No 07/20/23 15:06 Consult to Cardiology Routine Consulting Provider: [facility] [place] [facility] Reason for consultation: vegetation tricuspid valve Has provider been notified: No DS: Diagnosis Discharge Diagnosis (1) Endocarditis of tricuspid valve: Status: Acute (2) Bacteremia due to Staphylococcus: Status: Acute (3) Pulmonary abscess: Status: Acute DS: Summary Hospital Course Hospital Course: 57 years old man with past medical history significant for hypertension, epidural abscess and IV drug use presents to the emergency department complaining of severe right flank pain over the last few days that increases with movement and deep inspiration. He also reported some occasional cough. He did not report any fever or chills. He denies headache, sore throat, chest pain, nausea, vomiting, abdominal pain or diarrhea. He did not report any acute urinary symptoms. He is a tobacco smoker -1 pack per day. Last use of heroin 5 days ago. He denies alcohol abuse. In the ED, he was found to have stable vital signs. There is no leukocytosis. CRP is significantly elevated 17.46. LFTs are normal. Renal function is normal and there are no significant electrolyte imbalances. He underwent chest CT scan with IV contrast that show a new 1.5 cm cavity RLL nodule (infectious vs inflammatory versus neoplastic process should be considered). It also showed a stable 6 mm lingular pulmonary nodule. ED tx: Zosyn 3.375 mg IV, morphine 4 mg IV, vancomycin 2 g IV and Zofran 4 mg IV. Hospital Course Admitted to telemetry and maintained on IV Zosyn and vancomycin. Seen in consultation by ID who recommended DC Zosyn and continuing vancomycin. Seen by Pulmonary. Given history of IV drug abuse, pulmonary suggested a course of oral Ceftin given nature of pulmonary abscess. Patient is adamant about leaving today however states he will return on Thursday if IV antibiotics are warranted; I am awaiting a call from id at this time to verify the strategy. If agreeable, this will be arranged through short-stay surgery. At this point in time he understands the risks I will follow him by phone over the weekend Time Attestation Discharge coordination time: Greater than 30 minutes Quality: Safe Use of Opioids Does Pt have an Active Cancer Diagnosis on the Problem List?: No Quality: Stroke Does the patient have a stroke diagnosis?: No Physical Exam Vital Signs: Vital Signs: Last Vital Signs Temp 98.0 F 07/24/23 07:53 Pulse 56 07/24/23 08:45 Resp 16 07/24/23 07:53 BP 172/100 H 07/24/23 07:53 Pulse Ox 97 07/24/23 07:53 O2 Del Method Room Air 07/24/23 07:53 BMI result Body Mass Index 30.8 Const: Other: Awake alert no acute distress Resp: Other: Clear to auscultation bilaterally no rales rhonchi or wheezes Cardio: Other: No S4; positive S1-S2; no S3 murmurs rubs or gallops GI: Other: Soft nontender nondistended normoactive bowel sounds Extrem: Other: No edema bilaterally DS: Data Data Completed and Pending Labs on day of discharge: Laboratory Results - last 24 hr 07/23/23 07/24/23 21:00 05:24 Hold Purple Top SEE NOTE Creatinine 0.81 Estim Creat Clear Calc 99.0 Estimated GFR > 60 Random Vancomycin 14.4 L Preliminary micro results at discharge 07/22/23 08:00 Blood Culture - Preliminary Blood - Venous No growth after 48 hours. 07/22/23 07:56 Blood Culture - Preliminary Blood - Venous No growth after 48 hours. Discharge Plan Discharge Anticipated Discharge Date/Time: 07/24/23 14:27 Patient Disposition: Home, Self-Care Discharge Diagnosis: Cavitary right lower lobe nodule Referrals: Marvin Ayala DO, MD [Primary Care Provider] - 1 Week Discharge Medications: New cefuroxime axetil 500 mg tablet 500 mg PO BID 3 Days Qty: 6 0RF Continued latanoprost 0.005 % drops 1 drp ophthalmic (eye) BEDTIME trazodone 50 mg tablet 100 mg PO BEDTIME lisinopril 40 mg tablet 40 mg PO DAILY cholecalciferol (vitamin D3) [Vitamin D3] 25 mcg (1,000 unit) capsule 25 mcg PO DAILY tadalafil 10 mg tablet 10 mg PO DAILY PRN (Reason: Erectile Dysfunction) testosterone 50 mg/5 gram (1 %) gel 1 packet topical DAILY Rx Instructions: shoulders and or upper arms multivitamin Tablet 1 tab PO DAILY methadone [Methadone Intensol] 10 mg/mL Concentrate 45 mg PO DAILY Discharge Orders: Discharge Order (Routine); Ordered 07/24/23 Ordered By: Greg Aguila Diet: Advance to usual diet Activity on Discharge: As tolerated Stand Alone Forms: Patient Portal Discharge page Care Plan Goals: Continue all pre-hospital medications as ordered Health Concerns: Ceftin 500 mg twice a day has been added to your regimen. I will call you after discussion with ID regarding IV therapy and duration Plan of Treatment: Do not inject any substances Assessment: See discharge summary
--- NOTE | 2023-07-24 15:02 | MHC.CM.PN ---
Addendum entered by Macrina Berger RN 07/24/23 15:12: Patient provided with last dose letter. Methadone is through [facility]. Original Note: EMR reviewed. Patient is medically cleared for dc home, PO abx, self care. Patient has own ride.
== END 2023-07-24 15:21 | disposition home or self-care (01) | DRG 178 ==
LOC: HO.ED 20:02 → HO.EDOVER 23:38 → HO.S3 07-18 00:12
PROVIDERS: Hospitalist; Physician Assistant Medical; Admitting Provider Internal Medicine; Emergency Provider Internal Medicine; PCP Internal Medicine; Visit Provider Hospitalist
DX: J85.2 Abscess of lung without pneumonia (principal); F11.20 Opioid dependence, uncomplicated; R78.81 Bacteremia; I07.9 Rheumatic tricuspid valve disease, unspecified; B95.7 Other staphylococcus as the cause of diseases classified elsewhere; J43.9 Emphysema, unspecified; K59.03 Drug induced constipation; T40.3X5A Adverse effect of methadone, initial encounter; R00.1 Bradycardia, unspecified; J98.4 Other disorders of lung; F17.210 Nicotine dependence, cigarettes, uncomplicated; Z71.6 Tobacco abuse counseling; Z79.899 Other long term (current) drug therapy
CPT/HCPCS: 36415; 71045; 71260; 74177; 80048; 80053; 80202; 82550; 82565; 83605; 83735; 85025; 85652; 86140; 86803; 87040; 87077; 87186; 87205; 87389; 87522; 93005; 93306; 99285; J0131; J0696; J1170; J1650; J1885; J2270; J2405; J2543; J3370; J3371; Q9957; Q9967

== ENCOUNTER 2023-07-17 23:30 | Outpatient (BNV) | payer OTHER, SELFPAY | END 2023-07-20 07:00 | PROVIDERS: Admitting Provider Internal Medicine; Emergency Provider Internal Medicine; PCP Internal Medicine; Visit Provider Internal Medicine | DX: I36.1 Nonrheumatic tricuspid (valve) insufficiency (principal); I38 Endocarditis, valve unspecified | CPT/HCPCS: 93306 ==

== ENCOUNTER 2023-07-17 23:30 | Outpatient (BNV) | payer OTHER, SELFPAY | END 2023-07-19 12:29 | PROVIDERS: Admitting Provider Internal Medicine; Emergency Provider Internal Medicine; PCP Internal Medicine; Visit Provider Internal Medicine | DX: R00.1 Bradycardia, unspecified (principal) | CPT/HCPCS: 93010 ==

== ENCOUNTER → 2023-07-17 23:30 | Outpatient (BNV) | payer OTHER, SELFPAY | PROVIDERS: Admitting Provider Internal Medicine; Emergency Provider Internal Medicine; PCP Internal Medicine; Visit Provider Internal Medicine | DX: J85.2 Abscess of lung without pneumonia (principal); J98.4 Other disorders of lung; F19.90 Other psychoactive substance use, unspecified, uncomplicated; R78.81 Bacteremia | CPT/HCPCS: 99222 ==

== ENCOUNTER → 2023-07-17 23:30 | Outpatient (BNV) | payer OTHER, SELFPAY | PROVIDERS: Admitting Provider Internal Medicine; Emergency Provider Internal Medicine; PCP Internal Medicine; Visit Provider Nurse Practitioner Psychiatric/Mental Health | DX: F11.90 Opioid use, unspecified, uncomplicated (principal) | CPT/HCPCS: 99221 ==

== ENCOUNTER → 2023-07-17 23:30 | Outpatient (BNV) | payer OTHER, SELFPAY | PROVIDERS: Admitting Provider Internal Medicine; Emergency Provider Internal Medicine; PCP Internal Medicine; Visit Provider Internal Medicine | DX: I07.9 Rheumatic tricuspid valve disease, unspecified (principal); R78.81 Bacteremia; B95.8 Unspecified staphylococcus as the cause of diseases classified elsewhere; J85.2 Abscess of lung without pneumonia | CPT/HCPCS: 99223; 99233; 99238; 99499 ==

== ENCOUNTER → 2023-07-17 23:30 | Outpatient (BNV) | payer OTHER, SELFPAY | PROVIDERS: Admitting Provider Internal Medicine; Emergency Provider Internal Medicine; PCP Internal Medicine; Visit Provider Internal Medicine Pulmonary Disease | DX: J43.9 Emphysema, unspecified (principal); J85.2 Abscess of lung without pneumonia; R78.81 Bacteremia; B95.8 Unspecified staphylococcus as the cause of diseases classified elsewhere | CPT/HCPCS: 99222; 99232; 99233 ==

== ENCOUNTER → 2023-07-17 23:30 | Outpatient (BNV) | payer OTHER, SELFPAY | PROVIDERS: Admitting Provider Internal Medicine; Emergency Provider Internal Medicine; PCP Internal Medicine; Visit Provider Internal Medicine | DX: I07.9 Rheumatic tricuspid valve disease, unspecified (principal) | CPT/HCPCS: 99223 ==

== ENCOUNTER 2023-07-28 12:38 | Outpatient (REF) | payer OTHER, SELFPAY ==
[2023-07-28 12:40] VITALS: BP 129/94; PULSE 83; RESP 20; TEMP 36.8; O2SAT 99; BMI 32.4
[2023-07-28] MEDS: cefTRIAXone sodium 2 GM in 0.9 % Sodium Chloride 50 ML IV (13:14)
== END 2023-07-28 12:39 | disposition home or self-care (01) ==
LOC: HO.MDS 12:38
PROVIDERS: Visit Provider Hospitalist
DX: R78.81 Bacteremia (principal); B95.5 Unspecified streptococcus as the cause of diseases classified elsewhere
CPT/HCPCS: 96365; J0696

== ENCOUNTER 2023-07-29 | Outpatient (REF) | payer OTHER, SELFPAY | END 2023-07-29 00:01 | disposition home or self-care (01) | LOC: HO.MDS | PROVIDERS: Visit Provider Hospitalist | DX: Z13.89 Encounter for screening for other disorder (principal) | CPT/HCPCS: J0696 ==

== ENCOUNTER 2023-07-30 06:29 | Outpatient (REF) | payer OTHER, SELFPAY ==
[2023-07-29 07:09] VITALS: BP 152/76; PULSE 69; RESP 20; TEMP 37.2; O2SAT 98; BMI 31.6
[2023-07-29] MEDS: cefTRIAXone sodium 2 GM in 0.9 % Sodium Chloride 50 ML IV (07:39)
[2023-07-30 07:00] VITALS: BP 152/92; PULSE 83; RESP 17; TEMP 36.7
[2023-07-30] MEDS: cefTRIAXone sodium 2 GM in 0.9 % Sodium Chloride 50 ML IV (07:15)
== END 2023-07-30 06:30 | disposition home or self-care (01) ==
LOC: HO.MDS 06:29
PROVIDERS: Visit Provider Hospitalist
DX: R78.81 Bacteremia (principal); B95.5 Unspecified streptococcus as the cause of diseases classified elsewhere
CPT/HCPCS: 96365; J0696

== ENCOUNTER 2023-07-31 07:16 | Outpatient (REF) | payer OTHER, SELFPAY ==
[2023-07-31 07:19] VITALS: BP 157/93; PULSE 79; RESP 20; TEMP 36.6; O2SAT 100
[2023-07-31] MEDS: cefTRIAXone sodium 2 GM in 0.9 % Sodium Chloride 50 ML IV (07:36)
== END 2023-07-31 07:17 | disposition home or self-care (01) ==
LOC: HO.MDS 07:16
PROVIDERS: Visit Provider Hospitalist
DX: R78.81 Bacteremia (principal); B95.5 Unspecified streptococcus as the cause of diseases classified elsewhere
CPT/HCPCS: 96365; J0696

== ENCOUNTER 2023-08-01 09:21 | Outpatient (REF) | payer OTHER, SELFPAY | END 2023-08-01 09:22 | disposition home or self-care (01) | LOC: HO.MDS 09:21 | PROVIDERS: Visit Provider Hospitalist | DX: R78.81 Bacteremia (principal); B95.5 Unspecified streptococcus as the cause of diseases classified elsewhere | CPT/HCPCS: 96365; J0696 ==

== ENCOUNTER 2023-08-02 09:07 | Outpatient (REF) | payer OTHER, SELFPAY ==
[2023-08-02 09:54] VITALS: BP 166/92; PULSE 82; RESP 16; TEMP 36.9; O2SAT 97; BMI 32.4
[2023-08-02] MEDS: cefTRIAXone sodium 2 GM in 0.9 % Sodium Chloride 50 ML IV (10:15)
== END 2023-08-02 10:44 | disposition home or self-care (01) ==
LOC: HO.MDS 09:07
PROVIDERS: Visit Provider Hospitalist
DX: R78.81 Bacteremia (principal); B95.5 Unspecified streptococcus as the cause of diseases classified elsewhere
CPT/HCPCS: 96365; J0696

== ENCOUNTER 2023-08-03 09:09 | Outpatient (REF) | payer OTHER, SELFPAY ==
[2023-08-03 09:23] VITALS: BP 139/91; PULSE 78; RESP 16; TEMP 37.2; O2SAT 94
[2023-08-03] MEDS: cefTRIAXone sodium 2 GM in 0.9 % Sodium Chloride 50 ML IV (09:41)
== END 2023-08-03 09:10 | disposition home or self-care (01) ==
LOC: HO.MDS 09:09
PROVIDERS: Visit Provider Hospitalist
DX: R78.81 Bacteremia (principal); B95.5 Unspecified streptococcus as the cause of diseases classified elsewhere
CPT/HCPCS: 96365; J0696

== ENCOUNTER 2023-08-04 09:37 | Outpatient (REF) | payer OTHER, SELFPAY ==
[2023-08-04 09:49] VITALS: BP 144/90; PULSE 73; RESP 20; TEMP 37.4; O2SAT 97
[2023-08-04] MEDS: cefTRIAXone sodium 2 GM in 0.9 % Sodium Chloride 50 ML IV (09:51)
== END 2023-08-04 09:38 | disposition home or self-care (01) ==
LOC: HO.MDS 09:37
PROVIDERS: Visit Provider Hospitalist
DX: R78.81 Bacteremia (principal); B95.5 Unspecified streptococcus as the cause of diseases classified elsewhere
CPT/HCPCS: 96365; J0696

== ENCOUNTER 2023-08-05 09:58 | Outpatient (REF) | payer OTHER, SELFPAY ==
[2023-08-05 09:58] VITALS: BP 133/82; PULSE 64; RESP 17; TEMP 36.4; O2SAT 97
[2023-08-05] MEDS: cefTRIAXone sodium 2 GM in 0.9 % Sodium Chloride 50 ML IV (10:02)
== END 2023-08-05 09:59 | disposition home or self-care (01) ==
LOC: HO.MDS 09:58
PROVIDERS: Visit Provider Hospitalist
DX: R78.81 Bacteremia (principal); B95.5 Unspecified streptococcus as the cause of diseases classified elsewhere
CPT/HCPCS: 96365; J0696

== ENCOUNTER 2023-08-06 08:43 | Outpatient (REF) | payer OTHER, SELFPAY ==
[2023-08-06 08:46] VITALS: BP 146/89; PULSE 71; RESP 18; TEMP 36.6
[2023-08-06] MEDS: cefTRIAXone sodium 2 GM in 0.9 % Sodium Chloride 50 ML IV (09:12)
== END 2023-08-06 08:44 | disposition home or self-care (01) ==
LOC: HO.MDS 08:43
PROVIDERS: Visit Provider Hospitalist
DX: R78.81 Bacteremia (principal); B95.5 Unspecified streptococcus as the cause of diseases classified elsewhere
CPT/HCPCS: 96365; J0696

== ENCOUNTER 2023-08-07 09:21 | Outpatient (REF) | payer OTHER, SELFPAY ==
[2023-08-07 09:23] VITALS: BP 135/88; PULSE 95; RESP 20; TEMP 36; O2SAT 96
[2023-08-07] MEDS: cefTRIAXone sodium 2 GM in 0.9 % Sodium Chloride 50 ML IV (09:33)
== END 2023-08-07 09:22 | disposition home or self-care (01) ==
LOC: HO.MDS 09:21
PROVIDERS: Visit Provider Hospitalist
DX: R78.81 Bacteremia (principal); B95.5 Unspecified streptococcus as the cause of diseases classified elsewhere
CPT/HCPCS: 96365; J0696

== ENCOUNTER 2023-08-08 08:04 | Outpatient (REF) | payer OTHER, SELFPAY ==
[2023-08-08 08:12] VITALS: BP 147/89; PULSE 91; RESP 18; TEMP 36.4; O2SAT 97; BMI 31.6
[2023-08-08] MEDS: cefTRIAXone sodium 2 GM in 0.9 % Sodium Chloride 50 ML IV (08:25)
== END 2023-08-08 08:05 | disposition home or self-care (01) ==
LOC: HO.MDS 08:04
PROVIDERS: PCP Internal Medicine; Visit Provider Hospitalist
DX: R78.81 Bacteremia (principal); B95.5 Unspecified streptococcus as the cause of diseases classified elsewhere
CPT/HCPCS: 96365; J0696

== ENCOUNTER 2023-08-09 07:58 | Outpatient (REF) | payer OTHER, SELFPAY ==
[2023-08-09 08:26] VITALS: BMI 31.6
[2023-08-09 08:28] VITALS: PULSE 90; RESP 16; TEMP 36.2; O2SAT 96
[2023-08-09] MEDS: cefTRIAXone sodium 2 GM in 0.9 % Sodium Chloride 50 ML IV (08:33)
== END 2023-08-09 07:59 | disposition home or self-care (01) ==
LOC: HO.MDS 07:58
PROVIDERS: Visit Provider Hospitalist
DX: R78.81 Bacteremia (principal); B95.5 Unspecified streptococcus as the cause of diseases classified elsewhere
CPT/HCPCS: 96374; J0696

== ENCOUNTER 2023-08-10 08:48 | Outpatient (REF) | payer OTHER, SELFPAY ==
[2023-08-10 08:57] VITALS: BP 158/96; PULSE 73; RESP 16; TEMP 37.2; O2SAT 99
[2023-08-10] MEDS: cefTRIAXone sodium 2 GM in 0.9 % Sodium Chloride 50 ML IV (09:01)
== END 2023-08-10 08:49 | disposition home or self-care (01) ==
LOC: HO.MDS 08:48
PROVIDERS: Visit Provider Hospitalist
DX: R78.81 Bacteremia (principal); B95.5 Unspecified streptococcus as the cause of diseases classified elsewhere
CPT/HCPCS: 96365; J0696

== ENCOUNTER 2023-08-11 08:44 | Outpatient (REF) | payer OTHER, SELFPAY ==
[2023-08-11 08:46] VITALS: BP 163/96; PULSE 65; RESP 20; TEMP 36.4; O2SAT 99
[2023-08-11] MEDS: cefTRIAXone sodium 2 GM in 0.9 % Sodium Chloride 50 ML IV (09:01)
== END 2023-08-11 08:45 | disposition home or self-care (01) ==
LOC: HO.MDS 08:44
PROVIDERS: Visit Provider Hospitalist
DX: R78.81 Bacteremia (principal); B95.5 Unspecified streptococcus as the cause of diseases classified elsewhere
CPT/HCPCS: 96365; J0696

== ENCOUNTER 2023-08-12 08:29 | Outpatient (REF) | payer OTHER, SELFPAY ==
[2023-08-12 08:33] VITALS: BP 164/94; PULSE 92; RESP 20; TEMP 36.6; O2SAT 96
[2023-08-12] MEDS: cefTRIAXone sodium 2 GM in 0.9 % Sodium Chloride 50 ML IV (08:46)
== END 2023-08-12 08:30 | disposition home or self-care (01) ==
LOC: HO.MDS 08:29
PROVIDERS: Visit Provider Hospitalist
DX: R78.81 Bacteremia (principal); B95.5 Unspecified streptococcus as the cause of diseases classified elsewhere
CPT/HCPCS: 96365; J0696

== ENCOUNTER 2023-08-13 08:46 | Outpatient (REF) | payer OTHER, SELFPAY ==
[2023-08-13 08:47] VITALS: BP 158/83; PULSE 71; RESP 20; TEMP 36.3; O2SAT 98
[2023-08-13] MEDS: cefTRIAXone sodium 2 GM in 0.9 % Sodium Chloride 50 ML IV (09:05)
== END 2023-08-13 08:47 | disposition home or self-care (01) ==
LOC: HO.MDS 08:46
PROVIDERS: Visit Provider Hospitalist
DX: R78.81 Bacteremia (principal); B95.5 Unspecified streptococcus as the cause of diseases classified elsewhere
CPT/HCPCS: 96365; J0696

== ENCOUNTER 2023-08-14 08:45 | Outpatient (REF) | payer OTHER, SELFPAY ==
[2023-08-14 08:47] VITALS: BP 164/96; PULSE 75; RESP 20; TEMP 36; O2SAT 97
[2023-08-14] MEDS: cefTRIAXone sodium 2 GM in 0.9 % Sodium Chloride 50 ML IV (09:04)
== END 2023-08-14 08:46 | disposition home or self-care (01) ==
LOC: HO.MDS 08:45
PROVIDERS: Visit Provider Hospitalist
DX: R78.81 Bacteremia (principal); B95.5 Unspecified streptococcus as the cause of diseases classified elsewhere
CPT/HCPCS: 96365; J0696

== ENCOUNTER 2023-08-15 08:32 | Outpatient (REF) | payer OTHER, SELFPAY ==
[2023-08-15 09:49] VITALS: BP 161/98; PULSE 77; RESP 18; TEMP 36.4; O2SAT 99; BMI 31.6
[2023-08-15] MEDS: cefTRIAXone sodium 2 GM in 0.9 % Sodium Chloride 50 ML IV (10:12)
== END 2023-08-15 08:33 | disposition home or self-care (01) ==
LOC: HO.MDS 08:32
PROVIDERS: PCP Internal Medicine; Visit Provider Hospitalist
DX: R78.81 Bacteremia (principal); B95.5 Unspecified streptococcus as the cause of diseases classified elsewhere
CPT/HCPCS: 96365; J0696

== ENCOUNTER 2023-08-16 09:08 | Outpatient (REF) | payer OTHER, SELFPAY ==
[2023-08-16 09:55] VITALS: BP 156/88; PULSE 66; TEMP 36.2; O2SAT 97
[2023-08-16] MEDS: cefTRIAXone sodium 2 GM in 0.9 % Sodium Chloride 50 ML IV (10:27)
== END 2023-08-16 09:09 | disposition home or self-care (01) ==
LOC: HO.MDS 09:08
PROVIDERS: Visit Provider Hospitalist
DX: R78.81 Bacteremia (principal); B95.5 Unspecified streptococcus as the cause of diseases classified elsewhere
CPT/HCPCS: 96374; J0696

== ENCOUNTER 2023-08-17 08:36 | Outpatient (REF) | payer OTHER, SELFPAY ==
[2023-08-17 08:39] VITALS: BP 153/91; PULSE 77; RESP 20; TEMP 36.9; O2SAT 96
[2023-08-17] MEDS: cefTRIAXone sodium 2 GM in 0.9 % Sodium Chloride 50 ML IV (08:54)
== END 2023-08-17 08:37 | disposition home or self-care (01) ==
LOC: HO.MDS 08:36
PROVIDERS: Visit Provider Hospitalist
DX: R78.81 Bacteremia (principal); B95.5 Unspecified streptococcus as the cause of diseases classified elsewhere
CPT/HCPCS: 96365; J0696

== ENCOUNTER 2023-08-18 08:17 | Outpatient (REF) | payer OTHER, SELFPAY ==
[2023-08-18 08:20] VITALS: BP 152/95; PULSE 84; RESP 20; TEMP 36.8; O2SAT 99
[2023-08-18] MEDS: cefTRIAXone sodium 2 GM in 0.9 % Sodium Chloride 50 ML IV (08:30)
[2023-08-18 09:03] VITALS: BP 148/83
== END 2023-08-18 08:18 | disposition home or self-care (01) ==
LOC: HO.MDS 08:17
PROVIDERS: Visit Provider Hospitalist
DX: R78.81 Bacteremia (principal); B95.5 Unspecified streptococcus as the cause of diseases classified elsewhere
CPT/HCPCS: 96365; J0696

== ENCOUNTER 2023-08-19 08:56 | Outpatient (REF) | payer OTHER, SELFPAY ==
[2023-08-19 08:59] VITALS: BP 152/100; PULSE 80; RESP 20; TEMP 36.6; O2SAT 97
[2023-08-19] MEDS: cefTRIAXone sodium 2 GM in 0.9 % Sodium Chloride 50 ML IV (09:10)
== END 2023-08-19 08:57 | disposition home or self-care (01) ==
LOC: HO.MDS 08:56
PROVIDERS: Visit Provider Hospitalist
DX: R78.81 Bacteremia (principal); B95.5 Unspecified streptococcus as the cause of diseases classified elsewhere
CPT/HCPCS: 96365; J0696

== ENCOUNTER 2023-08-20 07:19 | Outpatient (REF) | payer OTHER, SELFPAY ==
[2023-08-20 07:21] VITALS: BP 151/87; PULSE 74; RESP 20; TEMP 36.8; O2SAT 99
[2023-08-20] MEDS: cefTRIAXone sodium 2 GM in 0.9 % Sodium Chloride 50 ML IV (07:28)
== END 2023-08-20 07:20 | disposition home or self-care (01) ==
LOC: HO.MDS 07:19
PROVIDERS: Visit Provider Hospitalist
DX: R78.81 Bacteremia (principal); B95.5 Unspecified streptococcus as the cause of diseases classified elsewhere
CPT/HCPCS: 96365; J0696

== ENCOUNTER 2023-08-21 07:41 | Outpatient (REF) | payer OTHER, SELFPAY ==
[2023-08-21 07:46] VITALS: BP 160/89; PULSE 71; RESP 18; TEMP 36.7; O2SAT 99
[2023-08-21] MEDS: cefTRIAXone sodium 2 GM in 0.9 % Sodium Chloride 50 ML IV (07:59)
== END 2023-08-21 07:42 | disposition home or self-care (01) ==
LOC: HO.MDS 07:41
PROVIDERS: Visit Provider Hospitalist
DX: R78.81 Bacteremia (principal); B95.5 Unspecified streptococcus as the cause of diseases classified elsewhere
CPT/HCPCS: 96365; J0696

== ENCOUNTER 2023-08-22 09:43 | Outpatient (REF) | payer OTHER, SELFPAY ==
[2023-08-22 10:07] VITALS: BMI 31.6
[2023-08-22 10:16] VITALS: BP 146/79; PULSE 94; RESP 20; TEMP 37; O2SAT 95
[2023-08-22] MEDS: cefTRIAXone sodium 2 GM in 0.9 % Sodium Chloride 50 ML IV (10:18)
== END 2023-08-22 09:44 | disposition home or self-care (01) ==
LOC: HO.MDS 09:43
PROVIDERS: PCP Internal Medicine; Visit Provider Hospitalist
DX: R78.81 Bacteremia (principal); B95.5 Unspecified streptococcus as the cause of diseases classified elsewhere
CPT/HCPCS: 96374; J0696

== ENCOUNTER 2023-08-23 09:53 | Outpatient (REF) | payer OTHER, SELFPAY | END 2023-08-23 09:54 | disposition home or self-care (01) | LOC: HO.MDS 09:53 | PROVIDERS: Visit Provider Hospitalist | DX: R78.81 Bacteremia (principal); B95.5 Unspecified streptococcus as the cause of diseases classified elsewhere | CPT/HCPCS: 96374; J0696 ==

== ENCOUNTER 2023-08-24 08:28 | Outpatient (RCR) | payer OTHER, SELFPAY ==
[2023-08-24 08:30] VITALS: BP 128/96; PULSE 77; RESP 20; TEMP 36.8; O2SAT 97
[2023-08-24] MEDS: cefTRIAXone sodium 2 GM in 0.9 % Sodium Chloride 50 ML IV (08:53)
[2023-08-24] MEDS: 0.9 % Sodium Chloride Flush 10 ML SYRINGE 5 ML IVFLUSH (09:25)
== END 2023-08-24 10:17 | disposition home or self-care (01) ==
LOC: HO.INF 08:28
PROVIDERS: Visit Provider Hospitalist
DX: R78.81 Bacteremia (principal); B95.5 Unspecified streptococcus as the cause of diseases classified elsewhere
CPT/HCPCS: 96365; J0696

== ENCOUNTER 2023-09-04 09:18 | Outpatient (AMB) | payer OTHER, SELFPAY ==
[2023-09-04 09:20] VITALS: BP 142/82; PULSE 69; O2SAT 98; BMI 30.8
--- NOTE | 2023-09-04 09:20 | A.OFFVIS_ITS ---
Intake Vital Signs 09/04/23 09:20 Height 5 ft 5 in Weight 185 lb BMI 30.8 BP 142/82 H Blood Pressure Location Rt brachial Position Sitting Pulse 69 Pulse Source Doppler Pulse Oximetry (%) 98 Oxygen Delivery Method Room Air Intake Visit Reasons: S/p hospital admit Allergies amoxicillin Allergy (Verified 09/04/23 09:29) Diarrhea HPI S/p hospital admit HPI Details 57-year-old gentleman, active 30+ pack-y ear smoker, with underlying history of polysubstance abuse including IV, endocarditis, and epidural abscess excision recently hospitalized with staphylococcal pulmonary abscess. Patient completed four weeks of treatment. He has had follow-up CT scan that shows 2 right basilar cavitary lesions, but no evidence of fluid. Patient does complain of intermittent wheezing. He is currently on no inhaled bronchodilators. [facility] Medical History (Updated 09/04/23 @ 09:40 by Wan Cortez MD) Emphysema lung Bacteremia Tobacco abuse Cavitary lesion of lung Epidural abscess IV drug user Essential hypertension Surgical History (Updated 08/23/23 @ 10:07 by Tiera Peralta) Previous back surgery History of surgery on arm Family History (Updated 07/21/23 @ 09:14 by Reno Hemphill MD) Father Heart disease Social History (Updated 09/04/23 @ 09:30 by EDUARDA Gee) Household Members: None Housing: Other Unable to assess alcohol history related to: Unknown Comment: refuses alarm Patient Tobacco Use Status: Current everyday Tobacco user Tobacco use type: Cigarette Cigarette Packs Per Day: 1 Years Smoked: started at 10, smoking for 40-45 years e-Cigarette/Vaping Use: Never Used Substance Use Type: Heroin service: No Review of Systems Const Denies daytime sleepiness, Denies excessive sweating, Denies fatigue, Denies fever(s), Denies lethargy, Denies malaise, Denies night sweats, Denies snoring and Denies weight loss Eyes Denies blurry vision and Denies itchy eyes ENT Denies nasal congestion, Denies post nasal drip, Denies sinus pain, Denies sinus pressure and Denies other ( Thrush) Card Denies chest pain, Denies pedal edema, Denies dyspnea, Denies orthopnea and Denies paroxysmal nocturnal dyspnea Resp Denies cough, Denies hemoptysis, Denies excessive phlegm production, Denies dyspnea, Denies snoring and Denies wheezing GI Denies abdominal pain and Denies heartburn Musc Denies myalgias, Denies arthralgias and Denies joint swelling Skin/Breast Denies rash Neuro Denies memory loss and Denies seizure-like activity Psych Denies abnormal sleep pattern, Denies anxiety and Denies memory loss Endo Denies excessive sweating, Denies fatigue and Denies heat intolerance Salvatore/Lymph Denies easy bruising Aller/Immun Denies itchy eyes, Denies seasonal rhinorrhea and Denies wheezing Physical Exam Vital Signs: Last Vital Signs Pulse 69 09/04/23 09:20 BP 142/82 H 09/04/23 09:20 Pulse Ox 98 09/04/23 09:20 Oxygen Delivery Method Room Air 09/04/23 09:20 BMI result Body Mass Index 30.8 Const General: no acute distress and alert Nutritional Appearance: not obese Orientation/consciousness: Other orientation findings ( oriented) HEENT Head: Yes atraumatic Eyes General: appearance normal, both eyes and all related structures Sclerae: sclerae normal EOM: EOMs intact bilaterally Neck Neck: Yes supple Lymphatic: no lymphadenopathy noted Resp Effort & Inspection: normal respiratory effort and no use of accessory muscles Auscultation: clear to auscultation bilaterally Cardio Rate: regular rate Rhythm: regular rhythm Heart sounds: no gallops, no murmurs and no rubs Skin General skin exam: other ( warm) Extrem General: No clubbing, No cyanosis and No edema Assessment & Plan Assessment & Plan (1) Pulmonary abscess: Code(s): J85.2 - Abscess of lung without pneumonia Plan: Appears acute component has resolved. Will obtain CT chest in 3 months. (2) Emphysema lung: Code(s): J43.9 - Emphysema, unspecified Plan: Likely COPD of unclear severity. Will obtain full PFT and start on empiric Anoro and albuterol MDI. Orders: Orders PFT pulmonary function test Today J43.9 - Emphysema, unspecified CT chest wo IV con 11/26/23 J85.2 - Abscess of lung without pneumonia Medications: New albuterol sulfate 90 mcg/actuation 2 puffs inhalation Q4-6H PRN 1 ea 6RF shortness of breath or wheezing 30 days umeclidinium-vilanterol 62.5-25 mcg/actuation (Anoro Ellipta) 1 inh inhalation DAILY 1 ea 6RF 30 days Coding Level of Care Code Est Pt Level 4 (70350) Diagnoses Pulmonary abscess J85.2 Emphysema lung J43.9
== END 2023-09-04 09:49 | disposition home or self-care (01) ==
PROVIDERS: PCP Internal Medicine; Referring Provider Internal Medicine Pulmonary Disease; Visit Provider Internal Medicine Pulmonary Disease
DX: J85.2 Abscess of lung without pneumonia (principal); J43.9 Emphysema, unspecified
CPT/HCPCS: 99214

== ENCOUNTER → 2023-09-04 09:18 | Outpatient (BNVA) | payer OTHER, SELFPAY | PROVIDERS: PCP Internal Medicine; Referring Provider Internal Medicine Pulmonary Disease; Visit Provider Internal Medicine Pulmonary Disease | DX: J85.2 Abscess of lung without pneumonia (principal); J43.9 Emphysema, unspecified | CPT/HCPCS: 99212 ==

== ENCOUNTER 2023-11-24 09:50 | Outpatient (REF) | payer OTHER, SELFPAY ==
--- NOTE | ~2023-11-24 | CT_ITS ---
EXAMINATION: CT CHEST WITHOUT CONTRAST CLINICAL INFORMATION: Emphysema, unspecified. Follow-up from CT chest 07/17/2023. COMPARISON: None available. TECHNIQUE: Multidetector volumetric CT imaging of the chest was done. Axial MIP volume rendering provided. Sagittal and coronal reformatted images were obtained. This CT examination was performed using dose optimization techniques as appropriate, variously including the following: *Automated exposure control *Adjustment of mA and/or kV according to patient size (this includes techniques or standardized protocols for targeted exams where dose is matched to indication/reason for exam; i.e. extremities or head) *Use of iterative reconstruction technique DLP: 181 mGy-cm Please note, due to [employer] technical systems and internal staffing issues, this examination was not available for dictation until 12/15/2023. 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 LUNGS: -There are no consolidations or groundglass opacity is identified. -Previously seen right lower lobe posterior cavitary consolidation has resolved. Only a small amount of linear scarring remains in this area. -Similar mild scarring in the lateral right upper lobe near the apex, as well as laterally and inferiorly. -Similar mild left upper lobe scarring anterolaterally. -There is mild diffuse bronchial wall and small airway thickening in both lungs, suggesting bronchitis or reactive airways disease. No definite endobronchial filling defects. Saber-sheath trachea noted. -There is no significant bronchiectasis. -There are a few tiny calcified granulomata present in both lungs. - 6 mm nodule in the lateral lingula is unchanged (series 5, image 338). -No new or suspicious pulmonary nodules. PLEURA: There is no pleural effusion. No pleural mass or thickening. MEDIASTINUM: -Normal thyroid, incompletely imaged. -No suspicious lymphadenopathy in the mediastinum or hilar regions. -Great vessels branch normally. -Aorta is mildly calcified but normal in caliber. Mildly tortuous course distally. -Main pulmonary artery is normal in size. -No pericardial effusion. Heart size is normal. -No esophageal abnormalities. CORONARY ARTERY CALCIFICATION: There is mild calcification of the RCA, LAD, and circumflex. AXILLA/CHEST WALL: No masses or lymphadenopathy. UPPER ABDOMEN: Possible tiny type I hiatus hernia. Mild atrophy of the pancreas. Otherwise normal. OSSEOUS STRUCTURES: -T9-T10 fusion, with associated fusion of the facet joints. -Large Schmorl's nodes in the endplates of T11-T12 with severe disc degeneration and endplate sclerosis. -No suspicious lytic or blastic bone lesions. CT/CT chest wo IV con IMPRESSION: 1. Resolution of previously seen cavitary lesion in the inferoposterior right lower lobe. No persistent consolidations or active lung disease. A small amount of scarring remains in this region. 2. Stable parenchymal scarring in the anterolateral and inferior upper lobes bilaterally. 3. Diffuse mild airway thickening, suggestive of bronchitis or reactive airways disease. Saber-sheath trachea suggests obstructive lung disease. 4. Stable pulmonary nodules, with stable 6 mm nodule in the lateral aspect of the lingula. No new or suspicious pulmonary nodules. 5. Fusion of T9-T10, stable. 6. Additional ancillary findings as discussed in the body of the report. Fleischner guidelines were followed.
== END 2023-11-24 09:51 | disposition home or self-care (01) ==
LOC: HO.CT 09:50
PROVIDERS: PCP Internal Medicine; Visit Provider Internal Medicine Pulmonary Disease
DX: J85.2 Abscess of lung without pneumonia (principal)
CPT/HCPCS: 71250

== ENCOUNTER → 2023-11-24 09:55 | Outpatient (BNV) | payer OTHER, SELFPAY | PROVIDERS: PCP Internal Medicine; Visit Provider Radiology Diagnostic Radiology | DX: J43.9 Emphysema, unspecified (principal) | CPT/HCPCS: 71250 ==

== ENCOUNTER 2023-12-16 10:04 | Outpatient (AMB) | payer OTHER, SELFPAY ==
[2023-12-16 10:09] VITALS: BP 138/78; PULSE 62; O2SAT 94; BMI 31.4
--- NOTE | 2023-12-16 10:09 | A.OFFVIS_ITS ---
Vital Signs 12/16/23 10:09 Height 5 ft 5 in Weight 188 lb 7.924 oz BMI 31.4 BP 138/78 Blood Pressure Location Rt brachial Position Sitting Pulse 62 Pulse Source Doppler Pulse Oximetry (%) 94 Oxygen Delivery Method Room Air Intake Visit Reasons: Emphysema Allergies amoxicillin Allergy (Verified 12/16/23 10:14) Diarrhea HPI HPI Emphysema: Details: 58-year-old gentleman, active 30+ pack-year smoker, with underlying history of polysubstance abuse including IV, endocarditis, and epidural abscess excision recently hospitalized with staphylococcal pulmonary abscess. Patient completed four weeks of treatment. He has had follow-up CT scan that shows 2 right basilar cavitary lesions, but no evidence of fluid. He completed his antibiotic therapy. His follow-up CT chest shows resolution of abscess cavity. His respiratory symptoms are well controlled on Anoro and albuterol MDI. [facility] Medical History (Updated 12/16/23 @ 10:35 by Wan Cortez MD) Emphysema lung Bacteremia Tobacco abuse Cavitary lesion of lung Epidural abscess IV drug user Essential hypertension Surgical History (Updated 08/23/23 @ 10:07 by Tiera Peralta RN) Previous back surgery History of surgery on arm Family History (Updated 07/21/23 @ 09:14 by Reno Hemphill MD) Father Heart disease Social History (Updated 09/04/23 @ 09:30 by EDUARDA Gee) Household Members: None Housing: Other Unable to assess alcohol history related to: Unknown Comment: refuses alarm Patient Tobacco Use Status: Current everyday Tobacco user Tobacco use type: Cigarette Cigarette Packs Per Day: 1 Years Smoked: started at 10, smoking for 40-45 years e-Cigarette/Vaping Use: Never Used Substance Use Type: Heroin service: No Review of Systems Const Denies daytime sleepiness, Denies excessive sweating, Denies fatigue, Denies fever(s), Denies lethargy, Denies malaise, Denies night sweats, Denies snoring and Denies weight loss Eyes Denies blurry vision and Denies itchy eyes ENT Denies nasal congestion, Denies post nasal drip, Denies sinus pain, Denies sinus pressure and Denies other ( Thrush) Card Denies chest pain, Denies pedal edema, Denies dyspnea, Denies orthopnea and Denies paroxysmal nocturnal dyspnea Resp Denies cough, Denies hemoptysis, Denies excessive phlegm production, Denies dyspnea, Denies snoring and Denies wheezing GI Denies abdominal pain and Denies heartburn Musc Denies myalgias, Denies arthralgias and Denies joint swelling Skin/Breast Denies rash Neuro Denies memory loss and Denies seizure-like activity Psych Denies abnormal sleep pattern, Denies anxiety and Denies memory loss Endo Denies excessive sweating, Denies fatigue and Denies heat intolerance Salvatore/Lymph Denies easy bruising Aller/Immun Denies itchy eyes, Denies seasonal rhinorrhea and Denies wheezing Physical Exam Vital Signs: Last Vital Signs Pulse 62 12/16/23 10:09 BP 138/78 12/16/23 10:09 Pulse Ox 94 12/16/23 10:09 Oxygen Delivery Method Room Air 12/16/23 10:09 BMI result Body Mass Index 31.4 Const General: no acute distress and alert Nutritional Appearance: not obese Orientation/consciousness: Other orientation findings ( oriented) HEENT Head: Yes atraumatic Eyes General: appearance normal, both eyes and all related structures Sclerae: sclerae normal EOM: EOMs intact bilaterally Neck Neck: Yes supple Lymphatic: no lymphadenopathy noted Resp Effort & Inspection: normal respiratory effort and no use of accessory muscles Auscultation: clear to auscultation bilaterally Cardio Rate: regular rate Rhythm: regular rhythm Heart sounds: no gallops, no murmurs and no rubs Skin General skin exam: other ( warm) Extrem General: No clubbing, No cyanosis and No edema Assessment & Plan Assessment & Plan (1) Emphysema lung: Code(s): J43.9 - Emphysema, unspecified Category: Medical Plan: Well controlled on current regimen of Anoro and albuterol MDI. Continue current regimen. PFT is pending. (2) Pulmonary abscess: Code(s): J85.2 - Abscess of lung without pneumonia Category: Medical Plan: Results of CT chest reviewed, resolution of abscess cavity with antibiotic therapy. (3) Personal history of nicotine dependence: Code(s): Z87.891 - Personal history of nicotine dependence Category: Medical Plan: Continue with yearly lung cancer screening. Ordered for November of 2024. Orders: Orders CT lung screening 12/05/24 Z87.891 - Personal history of nicotine dependence Coding Level of Care Code Est Pt Level 4 (99085) Diagnoses Emphysema lung J43.9 Pulmonary abscess J85.2 Personal history of nicotine dependence Z87.891
== END 2023-12-16 10:26 | disposition home or self-care (01) ==
PROVIDERS: PCP Internal Medicine; Visit Provider Internal Medicine Pulmonary Disease
DX: J43.9 Emphysema, unspecified (principal); J85.2 Abscess of lung without pneumonia; Z87.891 Personal history of nicotine dependence
CPT/HCPCS: 99214

== ENCOUNTER → 2023-12-16 10:04 | Outpatient (BNVA) | payer OTHER, SELFPAY | PROVIDERS: PCP Internal Medicine; Visit Provider Internal Medicine Pulmonary Disease | DX: J43.9 Emphysema, unspecified (principal); J85.2 Abscess of lung without pneumonia; Z87.891 Personal history of nicotine dependence | CPT/HCPCS: 99212 ==

== ENCOUNTER 2024-03-05 09:27 | Emergency (ER) | payer OTHER, SELFPAY ==
--- NOTE | ~2024-03-05 | XR_ITS ---
EXAMINATION: XR CHEST 2 VIEWS CLINICAL INFORMATION: CHEST PAIN COMPARISON: Prior chest x-ray July 17, 2023 TECHNIQUE: XR CHEST 2 VIEWS, 2 Views Lungs and Katalina: Mild left perihilar interstitial opacification probably mild infiltrates. Pleura: Normal. Costophrenic angles are sharp. No pneumothorax. Heart: The heart is normal in size. Mediastinum: Retrocardiac opacity possibly hiatal hernia. The mediastinum is within normal limits.. Bones: Skeletal structures included are normal for patient's age. XR/XR chest 2V IMPRESSION: 1. Mild left perihilar interstitial opacification probably mild interstitial infiltrates. 2. Retrocardiac opacity possibly hiatal hernia. 3. No pleural effusion. Electronically signed by: Temi Brunner MD 03/05/2024 10:56 AM EDT
--- NOTE | ~2024-03-05 | CT_ITS ---
EXAMINATION: CT ABDOMEN AND PELVIS WITHOUT CONTRAST CLINICAL INFORMATION: Right abdominal and right flank pain. COMPARISON: July 18, 2023. TECHNIQUE: Multidetector volumetric imaging was performed from the superior aspect of the liver through the pubic symphysis. Sagittal and coronal reformatted images were obtained on the technologist's workstation. This CT examination was performed using dose optimization techniques as appropriate, variously including the following: *Automated exposure control *Adjustment of mA and/or kV according to patient size (this includes techniques or standardized protocols for targeted exams where dose is matched to indication/reason for exam; i.e. extremities or head) *Use of iterative reconstruction technique DLP: 624 mGy-cm FINDINGS: LUNG BASES: Approximately 0.76 cm nodule within the lingula (image 63, series 4), not significantly changed compared with July 18, 2023, by my measurements. LIVER, GALLBLADDER, AND BILIARY TREE: The liver appears unremarkable in size, shape, and attenuation. No focal hepatic lesion or biliary ductal dilatation is appreciated. Unremarkable appearance of the gallbladder. PANCREAS: Unremarkable SPLEEN: Unremarkable ADRENAL GLANDS: Unremarkable KIDNEYS AND URETERS: The kidneys appear unremarkable in size, shape, and attenuation. No hydronephrosis, hydroureter, or calculi seen. BLADDER: Unremarkable GASTROINTESTINAL TRACT: Stomach appears unremarkable. Approximately 1.8 cm diverticulum involving the third portion of the duodenum, without evidence of associated inflammation. Small bowel otherwise appears grossly unremarkable on this noncontrast study. Unremarkable appearance of the colon. Normal-appearing distal ileum and vermiform appendix. ABDOMINAL WALL: No significant hernia is appreciated. LYMPH NODES: No evidence of adenopathy by size criteria. VASCULAR: Unremarkable PELVIC VISCERA: No acute finding. Suspect decreased bone mineral density. 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 Ankylosis at L2-L4, unchanged. Similar appearance of multilevel degenerative changes. OSSEOUS STRUCTURES: Unremarkable CT/CT abdomen pelvis wo IV con IMPRESSION: No acute finding. Approximately 0.76 cm nodule within the lingula, not significantly changed compared with July 18, 2023, by my measurements. Recommend follow-up chest CT in approximately 1 year, per Fleischner Society guidelines. Additional findings as above. Electronically signed by: Jay Marquis MD 03/05/2024 11:47 AM EDT
--- NOTE | 2024-03-05 09:31 | ECG_ITS ---
Test Reason : CHEST PAIN Blood Pressure : / mmHG Vent. Rate : 062 BPM Atrial Rate : 062 BPM P-R Int : 136 ms QRS Dur : 098 ms QT Int : 414 ms P-R-T Axes : 038 -22 018 degrees QTc Int : 420 ms Normal sinus rhythm Possible Left atrial enlargement Incomplete right bundle branch block Borderline ECG When compared with ECG of 19-JUL-2023 12:29, Vent. rate has increased BY 21 BPM Incomplete right bundle branch block is now Present Referred By: Generic ED Physician Electronically Signed By:KAREN LEWIS MD
[2024-03-05 09:45] VITALS: BP 185/103; PULSE 69; RESP 18; TEMP 36.4; O2SAT 96; BMI 33.2
[2024-03-05 09:50] VITALS: BP 155/105
[2024-03-05 10:11] LABS: MANUAL DIFF FLAG NO
[2024-03-05 10:13] LABS: Basophils Percent Auto 0.4 % (0-2); Eosinophils Absolute Auto 0.1 X10*3/uL (0.0-0.4); Eosinophils Percent Auto 1.8 % (0-4); Hematocrit 48.6 % (42.0-52.0); Hemoglobin 16.4 g/dl (14.0-18.0); Imm Gran Abs Auto 0.03 X10*3/uL (0.00-0.03); Imm Gran Pct Auto 0.4 % (0.0-0.4); Lymphocytes Absolute Auto 1.6 X10*3/uL (1.2-4.9); Lymphocytes Percent Auto 21.8 % (20-40); Mean Corpuscular HGB Conc 33.7 g/dl (31.0-36.0); Mean Corpuscular Hemoglobin 27.7 pg (27.0-33.0); Mean Corpuscular Volume 82.1 fL (80.0-98.0); Mean Platelet Volume 10.2 fL (9.4-12.4); Monocytes Absolute Auto 0.7 X10*3/uL (0.1-1.2); Monocytes Percent Auto 9.1 % (2-11); Neutrophils Absolute Auto 4.8 x10*3/uL (2.0-8.3); Neutrophils Percent Auto 66.5 % (45-73); Platelet Count 145 X10*3/uL (160-400); Red Blood Count 5.92 X10*6/uL (4.60-5.80); White Blood Count 7.2 X10*3/uL (4.8-10.8)
[2024-03-05 10:25] LABS: Alanine Aminotransferase 13 U/L (0-40); Albumin Level 4.4 g/dL (3.5-5.0); Alkaline Phosphatase 93 U/L (39-117); Anion Gap 13 (12-20); Aspartate Amino Transferase 20 U/L (5-37); Bilirubin Total 0.3 mg/dL (0.0-1.0); Blood Urea Nitrogen 24 mg/dL (9-16); Carbon Dioxide 28 mmol/L (22-29); Chloride 106 mmol/L (96-108); Creatinine Clr Calc Pharmacy 95.7; Estimated Glomerular Filt Rate > 60; Glucose Random 113 mg/dL (60-115); Potassium 4.3 mmol/L (3.3-5.1); Sodium 143 mmol/L (135-145); Total Protein 7.5 g/dL (6.5-8.0)
[2024-03-05 10:32] LABS: Troponin-I High Sensitivity 3.1 ng/L (<3.5-35.0)
--- NOTE | 2024-03-05 10:44 | ED_ITS ---
HPI - Chest Pain General Chief Complaint: Chest Pain Stated Complaint: R side pain chest pain Time Seen by Provider: 03/05/24 10:34 Source: patient Mode of arrival: ambulatory Limitations: no limitations History of Present Illness ED Provider: DR. Van HPI narrative: 58-year-old male history IV drug abuse last use was 3 days ago came in for multiple complains. Complaining of right-sided chest pain viral-like palpitation only confined to the right side with no radiation, no shortness of breath, no coughing, no sputum production, No recent travel, no lower extremity swelling or tenderness, no trauma to the chest. Patient also complaining of right-sided right flank abdominal pain for the past 3-4 days, pain is more with movement, feels the pain in right hip, able to ambulate, no dysuria, no frequency urination, no hematuria. Related Data Home Medications ?Medication ?Instructions ?Recorded ?Confirmed cholecalciferol (vitamin D3) 25 25 mcg PO DAILY 07/18/23 08/23/23 mcg (1,000 unit) capsule (Vitamin D3) latanoprost 0.005 % eye drops 1 drp ophthalmic (eye) BEDTIME 07/18/23 08/23/23 lisinopril 40 mg tablet 40 mg PO DAILY 07/18/23 08/23/23 multivitamin 1 tab PO DAILY 07/18/23 08/23/23 tadalafil 10 mg tablet 10 mg PO DAILY PRN Erectile 07/18/23 08/23/23 Dysfunction testosterone 50 mg/5 gram (1 %) 1 packet topical DAILY 07/18/23 08/23/23 transdermal gel trazodone 50 mg tablet 100 mg PO BEDTIME 07/18/23 08/23/23 Previous Rx's ?Medication ?Instructions ?Recorded ceftriaxone 2 gram solution for 2 g IV DAILY bacteremia 28 days 07/27/23 injection albuterol sulfate 90 mcg/actuation 2 puff inhalation Q4-6H PRN 09/04/23 aerosol inhaler shortness of breath or wheezing 30 days #1 ea umeclidinium 62.5 mcg-vilanterol 1 inh inhalation DAILY 30 days #1 09/04/23 25 mcg/actuation powdr for ea inhalation (Anoro Ellipta) Allergies Allergy/AdvReac Type Severity Reaction Status Date / Time amoxicillin Allergy Diarrhea Verified 10/12/24 09:48 Review of Systems 2 Review of Systems: all other systems are reviewed and are negative Constitutional: Reports as per HPI and Reports no additional constitutional complaints Eyes: Reports as per HPI and Reports no additional eye complaints Reports system reviewed and no additional complaints, except as documented Cardiovascular: Reports as per HPI and Reports no additional cardiovascular complaints Respiratory: Reports as per HPI and Reports no additional respiratory complaints Gastrointestinal: Reports as per HPI and Reports no additional gastrointestinal complaints Genitourinary: Reports no additional female genitourinary complaints Musculoskeletal: Reports no additional musculoskeletal complaints Skin/Breast: Reports system reviewed and no additional complaints, except as docu Psychiatric: Reports no additional psychiatric complaints Endocrine: Reports no additional endocrine complaints Hematologic/Lymphatic: Reports no additional hematologic/lymphatic complaints Allergic/Immunologic: Reports no additional allergic/immunologic complaints Reports system reviewed and no additional complaints, except as documented and Reports Abnormal speech present FOR[facility]LY [facility], [facility] Past Medical History Medical History Emphysema lung Bacteremia Tobacco abuse Cavitary lesion of lung Epidural abscess IV drug user Essential hypertension Surgical History Previous back surgery History of surgery on arm Family History Family History Father Heart disease Social History Social History Household Members: None Housing: Other Unable to assess alcohol history related to: Unknown Comment: refuses alarm Patient Tobacco Use Status: Current everyday Tobacco user Tobacco use type: Cigarette Cigarette Packs Per Day: 1 Years Smoked: started at 10, smoking for 40-45 years e-Cigarette/Vaping Use: Never Used Substance Use Type: Heroin service: No Physical Exam 2 Vital Signs: Vital Signs: Last Vital Signs Temp 97.5 F 03/05/24 09:45 Pulse 69 03/05/24 09:45 Resp 18 03/05/24 09:45 BP 155/105 H 03/05/24 09:50 Pulse Ox 96 03/05/24 09:45 O2 Del Method Room Air 03/05/24 09:45 BMI result Body Mass Index 33.2 Vital signs have been reviewed and appear to be correct. Blood pressure elevated. Heart rate normal. Respiratory rate normal. Temperature normal. Oxygen saturation normal. Appearance: Alert. Oriented X3. No acute distress. Head: Normal external exam. Normocephalic. Atraumatic. No De signs noted. No raccoon eyes noted Eyes: PERRLA. EOMI. Conjunctiva and sclera normal. Eyelids normal. ENT: TM's Normal. Pharynx normal. Uvula midline. Moist mucous membranes. No trismus noted. No drooling noted. No muffled voice noted. Neck: Normal inspection. Neck supple. FROM. No adenopathy. Thyroid Normal. No meningeal signs. No neck mass noted. CVS: Normal heart rate and rhythm. Heart sound normal. No murmurs noted. Pulses normal throughout. Respiratory: No respiratory distress. Painless inspiration. Breath sounds normal. No wheezes/rales/rhonchi noted. Chest nontender. No accessory muscle usage noted or decreased air movement noted. Abdomen: Soft and nontender. Bowel sounds normal in all 4 quadrants. No distention noted. No organomegaly noted. No visible injury noted. Back: no CVA tenderness. Full range of motion noted. Skin: Skin warm and dry. Normal skin color. Normal skin turgor. No rashes/lesions/lacerations noted. Extremities: No lower extremity edema. Extremities exhibit normal range of motion. Extremities nontender. Neuro: Oriented X 3. Cranial nerve exam: II-XII are grossly intact No motor deficit. No sensory deficit. Reflexes normal. Course Reevaluation(s) Reevaluation #1: 58-year-old male came in with right-sided pain, no risk for pulmonary embolism, no ischemic change on the EKG, negative troponin. Right-sided abdominal pain and right flank pain, normal UA, no kidney stone, no acute intra-abdominal pathology on CT. Time: 13:00 Medical Decision Making Differential Diagnosis Differential Diagnoses: The differential diagnosis associated with the presentation includes ( ACS, pneumonia, pneumothorax, pleural effusion, kidney stone, appendicitis, hip arthritis, severe anemia, electrolyte derangement.) Admission/Observation Consideration of admission/observation: Escalation of care including admission/observation considered Lab Data MDM Lab Attestation statement: I reviewed the patient's lab results. 03/05/24 10:04 03/05/24 10:04 Labs: Lab Results 03/05/24 Range/Units 10:04 WBC 7.2 (4.8-10.8) X10*3/uL RBC 5.92 H D (4.60-5.80) X10*6/uL Hgb 16.4 D (14.0-18.0) g/dl Hct 48.6 D (42.0-52.0) % MCV 82.1 (80.0-98.0) fL MCH 27.7 (27.0-33.0) pg MCHC 33.7 (31.0-36.0) g/dl RDW 14.0 (11.0-16.0) % Plt Count 145 L (160-400) X10*3/uL MPV 10.2 (9.4-12.4) fL Immature Gran % (Auto) 0.4 (0.0-0.4) % Neut % (Auto) 66.5 (45-73) % Lymph % (Auto) 21.8 (20-40) % [place] % (Auto) 9.1 (2-11) % Eos % (Auto) 1.8 (0-4) % Baso % (Auto) 0.4 (0-2) % Lymph # (Auto) 1.6 (1.2-4.9) X10*3/uL [place] # (Auto) 0.7 (0.1-1.2) X10*3/uL Eos # (Auto) 0.1 (0.0-0.4) X10*3/uL Baso # (Auto) 0.0 (0.0-0.2) X10*3/uL Abs Immat Gran (auto) 0.03 (0.00-0.03) X10*3/uL Absolute Neuts (auto) 4.8 (2.0-8.3) x10*3/uL Absolute Nucleated RBC 0.000 (0.0-0.012) X10*3/uL Nucleated RBC % (auto) 0.0 (0.0-0.2) /100WBC Sodium 143 (135-145) mmol/L Potassium 4.3 (3.3-5.1) mmol/L Chloride 106 (96-108) mmol/L Carbon Dioxide 28 (22-29) mmol/L Anion Gap 13 (12-20) BUN 24 H (9-16) mg/dL Creatinine 0.83 (0.5-1.4) mg/dL Estim Creat Clear Calc 95.7 Estimated GFR > 60 Random Glucose 113 (60-115) mg/dL Calcium 10.0 D (8.4-10.2) mg/dL Total Bilirubin 0.3 (0.0-1.0) mg/dL AST 20 (5-37) U/L ALT 13 (0-40) U/L Alkaline Phosphatase 93 (39-117) U/L Troponin I High Sens 3.1 (<3.5-35.0) ng/L Total Protein 7.5 (6.5-8.0) g/dL Albumin 4.4 (3.5-5.0) g/dL Independent Interpretation I performed an independent interpretation of an: Plain X-Ray ( Chest: No acute intrathoracic pathology.) and CT Scan ( Abdomen pelvis: No acute intra- abdominal pathology.) Radiology Impression Discussion of test interpretation with radiology: I have reviewed the radiologist's reading. Discharge Plan Discharge Clinical Impression: Abdominal pain, Chest pain Patient Disposition: Still a Patient Instructions: Abdominal Pain (ED), Chest Pain (ED) Prescriptions: No Action latanoprost 0.005 % drops 1 drp ophthalmic (eye) BEDTIME trazodone 50 mg tablet 100 mg PO BEDTIME lisinopril 40 mg tablet 40 mg PO DAILY cholecalciferol (vitamin D3) [Vitamin D3] 25 mcg (1,000 unit) capsule 25 mcg PO DAILY tadalafil 10 mg tablet 10 mg PO DAILY PRN (Reason: Erectile Dysfunction) testosterone 50 mg/5 gram (1 %) gel 1 packet topical DAILY Rx Instructions: shoulders and or upper arms multivitamin Tablet 1 tab PO DAILY ceftriaxone 2 gram recon soln 2 g IV DAILY 28 Days Anoro Ellipta 62.5-25 mcg/actuation blister with device 1 inh inhalation DAILY 30 Days Qty: 1 6RF albuterol sulfate 90 mcg/actuation HFA aerosol inhaler 2 puff inhalation Q4-6H PRN (Reason: shortness of breath or wheezing) 30 Days Qty: 1 6RF Referrals: Marvin Ayala DO, MD [Primary Care Provider] - Print Language: Ukrainian
[2024-03-05 11:36] VITALS: BP 153/102; PULSE 60; RESP 18; TEMP 36.9; O2SAT 97
[2024-03-05] MEDS: lisinopriL 40 MG TABLET PO (11:38)
--- NOTE | 2024-03-05 11:39 | PC.NURSE ---
Pt. on ekg monitor at this time.
[2024-03-05 14:51] VITALS: BP 154/88; PULSE 53; RESP 15; TEMP 36.8; O2SAT 97
[2024-03-05 16:55] VITALS: BP 154/88; PULSE 53; RESP 15; TEMP 36.8; O2SAT 97
== END 2024-03-05 16:57 | disposition home or self-care (01) ==
PROVIDERS: Emergency Provider Emergency Medicine; PCP Internal Medicine
DX: R10.9 Unspecified abdominal pain (principal); R07.9 Chest pain, unspecified; F17.210 Nicotine dependence, cigarettes, uncomplicated; Z79.899 Other long term (current) drug therapy
CPT/HCPCS: 36415; 71046; 74176; 80053; 84484; 85025; 93005; 99284; 99285

== ENCOUNTER → 2024-03-05 09:31 | Outpatient (BNV) | payer OTHER, SELFPAY | PROVIDERS: Emergency Provider Emergency Medicine; PCP Internal Medicine; Visit Provider Internal Medicine Cardiovascular Disease | DX: R94.31 Abnormal electrocardiogram [ECG] [EKG] (principal); R07.9 Chest pain, unspecified | CPT/HCPCS: 93010 ==

== ENCOUNTER 2025-03-02 07:23 | Outpatient (REF) | payer OTHER, SELFPAY ==
--- NOTE | ~2025-03-02 | CT_ITS ---
EXAMINATION: CT LUNG SCREENING HISTORY: Z87.891 - Personal history of nicotine dependence TECHNIQUE: Low dose axial images were obtained from the sternal notch to upper abdomen without IV contrast per standard departmental protocol. Sagittal and coronal reformatted images were also obtained and reviewed. One or more of the following techniques was used for dose reduction: Automated exposure control, adjustment of the mA and/or kV according to patient size, use of iterative reconstruction technique. DLP: 56 mGy-cm COMPARISON: There are no prior studies available for comparison. FINDINGS: Lung nodules: Again seen are 3 mm nodules in the right lower lobe (series 4, images 62 and 64), in the left upper lobe (series 4, image 42), and in the superior segment of the left lower lobe (series 4, image 50). There is a 6-7 mm nodule in the lingula (image 4, image 92) without significant change. No suspicious pulmonary nodules are identified. Emphysema: none Coronary Calcification: mild Aortic Arch Calcification: mild Potentially Significant Incidentals : none Additional Chest Findings: There is no pleural or pericardial effusion. No mediastinal or axillary lymphadenopathy is identified. Visualized upper abdomen: The visualized portions of the liver, spleen, and adrenals have an unremarkable unenhanced appearance. CT/CT lung screening IMPRESSION: No suspicious pulmonary nodules are identified. LUNG-RADS ASSESSMENT: Lung-RADS 2: Benign MANAGEMENT: Continue annual screening with LDCT in 12 months Category S: N/A Electronically signed by: Basil San MD 03/02/2025 08:14 AM EDT
== END 2025-03-02 07:24 | disposition home or self-care (01) ==
LOC: HO.CT 07:23
PROVIDERS: Visit Provider Internal Medicine Pulmonary Disease
DX: Z12.2 Encounter for screening for malignant neoplasm of respiratory organs (principal); Z87.891 Personal history of nicotine dependence
CPT/HCPCS: 71271

== ENCOUNTER → 2025-03-02 07:27 | Outpatient (BNV) | payer OTHER, SELFPAY | PROVIDERS: Visit Provider Radiology Diagnostic Radiology | DX: Z12.2 Encounter for screening for malignant neoplasm of respiratory organs (principal); Z87.891 Personal history of nicotine dependence | CPT/HCPCS: 71271 ==